=== PATIENT | female | born 1995 | race American Indian/Alaskan Native ===

== ENCOUNTER 2016-12-24 14:04 | Inpatient (IN) | payer MEDICAID ==
[2016-12-24] MEDS ORDERED: POLYCILLIN/NS 2 GM/100 ML 2 GM/100 ML BAG IV ONE (16:00)
[2016-12-24 16:02] LABS: Hematocrit 27.3 % (30.3-42.9); Hemoglobin 8.7 gm/dl (10.1-14.3); Mean Corpuscular HGB Conc 32 % (30-34); Mean Corpuscular Volume 74 fl (79-97); Platelet Count 379 K/mm3 (140-440); Red Blood Count 3.71 M/mm3 (3.65-5.03); Red Cell Distribution Width 15.4 % (13.2-15.2); White Blood Count 10.4 K/mm3 (4.5-11.0)
[2016-12-24 16:06] LABS: Mean Corpuscular Hemoglobin 23 pg (28-32)
--- NOTE | 2016-12-24 16:26 | History and Physical Report ---
History of Present Illness Date of examination: 12/24/16 Date of admission: 12/24/16 14:59 Chief complaint: leaking fluid History of present illness: Pt describes waking up and having a what appeared to be a wet spot on the bedding this am. She state she started having discharge and leaking at 10am that was clear that got cointinued and increased in flow. In triage pt was examined and nitrazine was not conclusive, however on my exam, pt has no membranes that can be palpated on exam. She is having contractions that she can feel that are q 2-3 min. I d/w IOL for ROM especially given she is GBS positive. I also d/w pt serial IOL and what can be expected. All questions were addressed and answered. EDC Calculations LMP: 12/26/2016 EDC Confirmation: 12/26/2016 Gestational Age: 10 1/7 weeks Past History : 1 Para: 0 Past Medical History: Negative Past Medical History Past Surgical History: negative Past Medical History Anesthesia Complications: negative Anemia: negative Autoimmune Disorder: negative Bleeding Disorder: negative Blood Transfusions: negative Breast Disease: negative Diabetes: negative Heart Disease: negative Hypertension: negative Hepatitis/Liver Disease: negative Kidney Disease/UTI: negative Neurologic/Epilepsy/Migraines: negative Phlebitis/Varicosities: negative Psychiatric: negative Pulmonary Disease/Asthma: negative Thyroid Disease: negative Hospitalizations: negative Surgery (Non-cardiac cath tech): negative Abnormal PAP: negative CHELSEA Exposure: negative Infertility: negative Uterine Anomaly: negative Uterine Surgery (not C/S): negative Other Gynecologic Problems: negative Social Hx: Patient is single Smoking History: Patient has never smoked. Infection History Hx of STD: chlamydia HIV Risk Eval: no Hepatitis B Risk Eval: low risk Varicella/Chicken Pox Status: Previous Disease Genetic History Congenital Heart Defect: Mom: no Dad: no Beth Disease: Mom: no Dad: no Thalassemia Mom: no Dad: no Neural Tube Defect Mom: no Dad: no Down's Syndrome Mom: no Dad: no Guido-Sachs Mom: no Dad: no Sickle Cell Disease/Trait Mom: no Dad: no Hemophilia Mom: no Dad: no Muscular Dystrophy Mom: no Dad: no Cystic Fibrosis Mom: no Dad: no [place] Chorea Mom: no Dad: no Mental Retardation Mom: no Dad: no Fragile X Mom: no Dad: no Other Genetic/Chromosomal Disorder Mom: no Dad: no Child w/other defect Mom: no Dad: no Enviromental Exposures Xray Exposure: no Medication, drug, or alcohol use since LMP: no Chemical/Other Exposure: no Exposure to Cat Liter: no Hx of Parvovirus (Fifth Disease): no Occupational Exposure to Children: none Past History Past Medical History: no pertinent history Past Surgical History: no surgical history 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: abnormal PAP smear Family/Genetic History: diabetes Social history: no significant social history, single - Obstetrical History Expected Date of Delivery: 12/26/16 Actual Gestation: 39 Week(s) 5 Day(s) : 1 Medications and Allergies Allergies Allergy/AdvReac Type Severity Reaction Status Date / Time No Known Allergies Allergy Unverified 07/17/16 03:00 Home Medications Medication Instructions Recorded Confirmed Last Taken Type Diphenhydramine HCl [Benadryl 25 mg PO Q6HR #10 tablet 07/17/16 12/24/16 05:00 Rx Allergy TAB] Tablet 1 tab PO DAILY 07/17/16 12/24/16 12/24/16 12:00 History Ondansetron [Zofran ODT TAB] 4 mg PO Q8HR #10 tab.rapdis 09/27/16 12/24/16 Unknown Rx Active Meds: Active Medications Ampicillin Sodium (Polycillin/Ns 1 Gm/50 Ml) 1 gm in 50 mls @ 100 mls/hr IV Q4H HARPREET PRN Reason: Protocol Ampicillin Sodium (Polycillin/Ns 2 Gm/100 Ml) 2 gm in 100 mls @ 100 mls/hr IV ONCE ONE Stop: 12/24/16 16:59 Last Admin: 12/24/16 16:20 Dose: 100 mls/hr Oxytocin/Sodium Chloride (Pitocin/Ns 30 Unit/500ml) 30 units in 500 mls @ 4 mls /hr IV TITR HARPREET PRN Reason: Protocol Lactated Ringer's (Lactated Ringers) 1,000 mls @ 125 mls/hr IV DIRECT AHRPREET Influenza Virus Vaccine Quadrival (Fluarix Quad 9021-1372(36 Mos+)) 60 mcg IM .ONCE ONE Stop: 12/25/16 12:01 Review of Systems All systems: negative - Vital Signs Vital signs: Vital Signs Pulse Pulse Ox 108 H 98 12/24/16 14:13 12/24/16 14:13 Temp Pulse Resp BP Pulse Ox 97.5 F L 99 H 18 114/72 99 12/24/16 15:25 12/24/16 15:36 12/24/16 15:25 12/24/16 15:25 12/24/16 15:36 - Physical Exam Lungs: Positive: Normal air movement Abdomen: Positive: normal appearance, soft. Negative: distention, tenderness, guarding Vulva: both: normal Vagina: Positive: normal moisture Extremities: Positive: normal. Negative: tenderness, edema Deep Tendon Reflex Grade: Normal +2 - Obstetrical FHR: category 1 Cervical Dilatation: 2 Cervical Effacement Percentage: 50 station: -1 Uterine Contraction Pattern: Regular Uterine Tone Measurement Phase: Resting Uterine Contraction Intensity: Mild Results Result Diagrams: 12/24/16 15:50 Abnormal lab results 12/24/16 Range/Units 15:50 Hgb 8.7 L (10.1-14.3) gm/dl Hct 27.3 L (30.3-42.9) % MCV 74 L (79-97) fl MCH 23 L (28-32) pg RDW 15.4 H (13.2-15.2) % All other labs normal. Assessment and Plan - Patient Problems (1) 39 weeks gestation of Current Visit: Yes Status: Acute (2) SRM (spontaneous rupture of membranes) Current Visit: Yes Status: Acute (3) Anemia affecting in third trimester Current Visit: Yes Status: Acute (4) Group B streptococcal carriage complicating Current Visit: Yes Status: Acute
[2016-12-24] MEDS ORDERED: BRETHINE SUB-Q PRN (16:30)
[2016-12-24] MEDS ORDERED: XYLOCAINE 2% INFILTRATI ONE ×2 (16:30→19:14)
[2016-12-24] MEDS ORDERED: SUBLIMAZE IV PRN (16:30)
[2016-12-24] MEDS ORDERED: BRETHINE IVP PRN (16:30)
[2016-12-24] MEDS ORDERED: MINERAL OIL PO PRN (16:30)
[2016-12-24] MEDS ORDERED: ePHEDrine SULFATE IV PRN ×2 (16:30→19:59)
[2016-12-24] MEDS ORDERED: LACTATED RINGERS 1,000 ML IV SCH ×2 (17:00)
[2016-12-24] MEDS ORDERED: PITOCin/NS 30 UNIT/500ML 30 UNITS/500 ML BAG IV SCH (17:00)
[2016-12-24] MEDS ORDERED: PITOCin/NS 20 UNIT/1000ML DRIP 20 UNITS/1,000 ML BAG IV SCH (17:00)
[2016-12-24] MEDS: PITOCin/NS 30 UNIT/500ML 30 UNITS/500 ML BAG IV SCH ×2 (17:06→17:37)
--- NOTE | 2016-12-24 18:04 | Progress Note ---
Assessment and Plan - Patient Problems (1) 39 weeks gestation of Current Visit: Yes Status: Acute (2) SRM (spontaneous rupture of membranes) Current Visit: Yes Status: Acute Plan to address problem: -SROM since 1230pm. +GBS. Monitor for s/sx of chorio or dysfunctional labor -con't pitocin -tachycardia appears to be associated with accelerations with contractions as there is a return to a baseline of 150s to 160s when contractions is completed. Fluid bolus going now. Will con't to monitor closely. (3) Anemia affecting in third trimester Current Visit: Yes Status: Acute (4) Group B streptococcal carriage complicating Current Visit: Yes Status: Acute Plan to address problem: -cont antibx -monitor for early s/sx of chorio Subjective - Subjective Date of service: 12/24/16 Principal diagnosis: 39.5 latent labor; GBS positive; Interval history: Pt doing well with contractions at this time and is not requesting pain medications. Baseline HR is 150-160s with accesl to the 170-180s. Pt will get fluid bolus at this time and is s/p loading dose of Ampicillin. I d/w pt and mother risk of infect due to being GBS positive and being ruptured for so long with antibx. While pt is not at the time of prolonged ROM, she still is at risk for chorio. I d/w risk of operative delivery due to intolerance, failure to progress, Chorio remote from delivery. IUPC placed without difficulty. ISE was placed but then dislodged so was removed. Clear fluid noted on exam. Patient reports: loss of fluid, movement normal, contractions, no new complaints, no vaginal bleeding Objective - Vital Signs Vital Signs: Vital Signs - 12hr 12/24/16 12/24/16 12/24/16 14:13 14:15 14:18 Temperature 97.9 F Pulse Rate 108 H 123 H 129 H Pulse Rate [ 111 H From Monitor] Respiratory 20 Rate Blood Pressure 105/63 Blood Pressure 105/63 [Right Arm] O2 Sat by Pulse 98 98 Oximetry 12/24/16 12/24/16 12/24/16 14:23 14:28 14:33 Temperature Pulse Rate 118 H 118 H 96 H Pulse Rate [ From Monitor] Respiratory Rate Blood Pressure Blood Pressure [Right Arm] O2 Sat by Pulse 98 98 98 Oximetry 12/24/16 12/24/16 12/24/16 14:38 14:43 14:48 Temperature Pulse Rate 101 H 108 H 115 H Pulse Rate [ From Monitor] Respiratory Rate Blood Pressure Blood Pressure [Right Arm] O2 Sat by Pulse 98 98 99 Oximetry 12/24/16 12/24/16 12/24/16 14:53 14:58 15:23 Temperature Pulse Rate 104 H 103 H 105 H Pulse Rate [ From Monitor] Respiratory Rate Blood Pressure 114/72 Blood Pressure [Right Arm] O2 Sat by Pulse 98 98 Oximetry 12/24/16 12/24/16 12/24/16 15:25 15:26 15:31 Temperature 97.5 F L Pulse Rate 108 H 107 H Pulse Rate [ 105 H From Monitor] Respiratory 18 Rate Blood Pressure Blood Pressure 114/72 [Right Arm] O2 Sat by Pulse 99 99 98 Oximetry 12/24/16 12/24/16 12/24/16 15:36 17:04 17:35 Temperature Pulse Rate 99 H 93 H 84 Pulse Rate [ From Monitor] Respiratory Rate Blood Pressure 117/75 113/73 Blood Pressure [Right Arm] O2 Sat by Pulse 99 Oximetry - Exam Lungs: Clear to auscultation Abdomen: Present: normal appearance, soft. Absent: distention, tenderness, guarding FHR: category 2 (due to variables and occassional tacycardia) Cervical Dilatation: 2 (clear fluid noted with IUPC placement. ISE placed but then was displaced and removed) Cervical Effacement Percentage: 50 station: -1 to -2 - Labs Labs: Abnormal Labs 12/24/16 15:50 Hgb 8.7 L Hct 27.3 L MCV 74 L MCH 23 L RDW 15.4 H Laboratory Results - last 24 hr 12/24/16 12/24/16 15:50 15:50 WBC 10.4 RBC 3.71 Hgb 8.7 L Hct 27.3 L MCV 74 L MCH 23 L MCHC 32 RDW 15.4 H Plt Count 379 Blood Type O POSITIVE
[2016-12-24] MEDS ORDERED: ePHEDrine SULFATE ONE (19:06)
[2016-12-24] MEDS: POLYCILLIN/NS 1 GM/50 ML 1 GM/50 ML BAG IV SCH ×2 (19:25→23:43)
--- NOTE | 2016-12-24 19:50 | Progress Note ---
Assessment and Plan - Patient Problems (1) 39 weeks gestation of Current Visit: Yes Status: Acute (2) SRM (spontaneous rupture of membranes) Current Visit: Yes Status: Acute Plan to address problem: -active labor at this time -epidrual in place -con't pitocin -anticipate (3) Anemia affecting in third trimester Current Visit: Yes Status: Acute (4) Group B streptococcal carriage complicating Current Visit: Yes Status: Acute Subjective - Subjective Date of service: 12/24/16 Principal diagnosis: 39.5 latent labor; GBS positive; Interval history: Epidural in place pt is very comfortable. cx : /-1 with clear fluid still noted. Patient reports: loss of fluid, movement normal, contractions, no new complaints, no vaginal bleeding Objective - Vital Signs Vital Signs: Vital Signs - 12hr 12/24/16 12/24/16 12/24/16 14:13 14:15 14:18 Temperature 97.9 F Pulse Rate 108 H 123 H 129 H Pulse Rate [ 111 H From Monitor] Respiratory 20 Rate Blood Pressure 105/63 Blood Pressure 105/63 [Right Arm] O2 Sat by Pulse 98 98 Oximetry 12/24/16 12/24/16 12/24/16 14:23 14:28 14:33 Temperature Pulse Rate 118 H 118 H 96 H Pulse Rate [ From Monitor] Respiratory Rate Blood Pressure Blood Pressure [Right Arm] O2 Sat by Pulse 98 98 98 Oximetry 12/24/16 12/24/16 12/24/16 14:38 14:43 14:48 Temperature Pulse Rate 101 H 108 H 115 H Pulse Rate [ From Monitor] Respiratory Rate Blood Pressure Blood Pressure [Right Arm] O2 Sat by Pulse 98 98 99 Oximetry 12/24/16 12/24/16 12/24/16 14:53 14:58 15:23 Temperature Pulse Rate 104 H 103 H 105 H Pulse Rate [ From Monitor] Respiratory Rate Blood Pressure 114/72 Blood Pressure [Right Arm] O2 Sat by Pulse 98 98 Oximetry 12/24/16 12/24/16 12/24/16 15:25 15:26 15:31 Temperature 97.5 F L Pulse Rate 108 H 107 H Pulse Rate [ 105 H From Monitor] Respiratory 18 Rate Blood Pressure Blood Pressure 114/72 [Right Arm] O2 Sat by Pulse 99 99 98 Oximetry 12/24/16 12/24/16 12/24/16 15:36 17:04 17:35 Temperature Pulse Rate 99 H 93 H 84 Pulse Rate [ From Monitor] Respiratory Rate Blood Pressure 117/75 113/73 Blood Pressure [Right Arm] O2 Sat by Pulse 99 Oximetry 12/24/16 12/24/16 12/24/16 17:59 18:01 18:04 Temperature 97.7 F Pulse Rate 82 86 Pulse Rate [ 84 From Monitor] Respiratory 18 Rate Blood Pressure 117/78 Blood Pressure 117/78 [Right Arm] O2 Sat by Pulse 99 99 100 Oximetry 12/24/16 12/24/16 12/24/16 18:09 18:14 18:19 Temperature Pulse Rate 81 93 H 84 Pulse Rate [ From Monitor] Respiratory Rate Blood Pressure Blood Pressure [Right Arm] O2 Sat by Pulse 100 100 100 Oximetry 12/24/16 12/24/16 12/24/16 18:24 18:29 18:34 Temperature Pulse Rate 84 88 107 H Pulse Rate [ From Monitor] Respiratory Rate Blood Pressure Blood Pressure [Right Arm] O2 Sat by Pulse 100 100 100 Oximetry 12/24/16 12/24/16 12/24/16 18:39 18:44 18:49 Temperature Pulse Rate 84 88 104 H Pulse Rate [ From Monitor] Respiratory Rate Blood Pressure Blood Pressure [Right Arm] O2 Sat by Pulse 100 100 100 Oximetry 12/24/16 12/24/16 12/24/16 18:54 18:59 19:04 Temperature Pulse Rate 98 H 95 H 100 H Pulse Rate [ From Monitor] Respiratory Rate Blood Pressure Blood Pressure [Right Arm] O2 Sat by Pulse 100 100 100 Oximetry 12/24/16 12/24/16 12/24/16 19:09 19:14 19:19 Temperature Pulse Rate 95 H 93 H 98 H Pulse Rate [ From Monitor] Respiratory Rate Blood Pressure Blood Pressure [Right Arm] O2 Sat by Pulse 100 100 100 Oximetry 12/24/16 12/24/16 12/24/16 19:24 19:29 19:34 Temperature Pulse Rate 86 118 H 95 H Pulse Rate [ From Monitor] Respiratory Rate Blood Pressure Blood Pressure [Right Arm] O2 Sat by Pulse 100 98 98 Oximetry 12/24/16 12/24/16 12/24/16 19:39 19:40 19:41 Temperature Pulse Rate 90 95 H 97 H Pulse Rate [ From Monitor] Respiratory Rate Blood Pressure 106/56 104/57 Blood Pressure [Right Arm] O2 Sat by Pulse 99 Oximetry 12/24/16 12/24/16 19:43 19:44 Temperature Pulse Rate 96 H 99 H Pulse Rate [ From Monitor] Respiratory Rate Blood Pressure 102/55 Blood Pressure [Right Arm] O2 Sat by Pulse 98 Oximetry - Exam FHR: category 1 Cervical Dilatation: 4 Cervical Effacement Percentage: 50 station: -1 Uterine Contraction Pattern: Regular Extremities: normal - Labs Labs: Abnormal Labs 12/24/16 15:50 Hgb 8.7 L Hct 27.3 L MCV 74 L MCH 23 L RDW 15.4 H Laboratory Results - last 24 hr 12/24/16 12/24/16 15:50 15:50 WBC 10.4 RBC 3.71 Hgb 8.7 L Hct 27.3 L MCV 74 L MCH 23 L MCHC 32 RDW 15.4 H Plt Count 379 Blood Type O POSITIVE Antibody Screen Negative
[2016-12-24] MEDS ORDERED: NARCAN 2 MG/2 ML IV PRN (19:59)
--- NOTE | 2016-12-24 19:59 | Anesthesia Consultation ---
Anesthesia Consult and Med Hx Date of service: 12/24/16 - Airway Anesthetic Teeth Evaluation: Good ROM Head & Neck: Adequate Mental/Hyoid Distance: Adequate Mallampati Class: Class II Intubation Access Assessment: Probably Good - Pulmonary Exam CTA: Yes - Cardiac Exam Cardiac Exam: RRR - Pre-Operative Health Status ASA Pre-Surgery Classification: ASA2 Proposed Anesthetic Plan: Epidural, Spinal - Pulmonary Hx Asthma: No COPD: No Hx Pneumonia: No - Cardiovascular System Hx Hypertension: No - Central Nervous System Hx Seizures: No Hx Psychiatric Problems: No - Endocrine Hx Renal Disease: No Hx End Stage Renal Disease: No Hx Hypothyroidism: No Hx Hyperthyroidism: No - Hematic Hx Anemia: No Hx Sickle Cell Disease: No - Other Systems Hx Alcohol Use: No Hx Obesity: Yes - Additional Comments Anesthesia Medical History Comments: +
[2016-12-24] MEDS: fentaNYL-BUPIV 2 MCG/ML-0.125% 200 MCG/100 ML BAG EPIDURAL SCH (20:21)
--- NOTE | 2016-12-24 20:34 | Event Note ---
Date: 12/24/16 Called by nursing to review tracing. Tracing reviewed. Currently Cat [place] did not appear to be working properly so was d/c and external monitor was placed. Will con't with pitocin induction /augmentation of labor at this time.
--- NOTE | 2016-12-24 22:33 | Event Note ---
Date: 12/24/16 Pt with adequate MVUs at this time and states she was just examined by nursing staff 30 min ago so I did not check pt at this time. Pt comfortable with contractions. Cx as per charted exam has not changed since my exam 2 hours ago. I d/w that she is falling off the labor curve she she should be at least 6cm. Pt desires to con't labor induction at this time instead of c/s. Tracing is Cat 1 and at this time shows no signs of distress or chorio. Pt understanding that should these events occur, then operative delivery via c/s would be necessary. Pt and mother expressed understanding and questions were addressed and answered.
[2016-12-25] MEDS: fentaNYL-BUPIV 2 MCG/ML-0.125% 200 MCG/100 ML BAG EPIDURAL SCH (03:57)
[2016-12-25] MEDS: POLYCILLIN/NS 1 GM/50 ML 1 GM/50 ML BAG IV SCH (03:58)
--- NOTE | 2016-12-25 04:03 | Progress Note ---
Assessment and Plan - Patient Problems (1) 39 weeks gestation of Current Visit: Yes Status: Acute (2) SRM (spontaneous rupture of membranes) Current Visit: Yes Status: Acute Plan to address problem: -active labor at this time -epidrual in place -con't pitocin -anticipate -although pt is off labor curve. Cs vs continued ELSA were d/w pt and she currently desires to continue ELSA. All questions were addressed and answered. (3) Anemia affecting in third trimester Current Visit: Yes Status: Acute (4) Group B streptococcal carriage complicating Current Visit: Yes Status: Acute Plan to address problem: -cont antibx -monitor for early s/sx of chorio -s/p several does of Ampicillin Subjective - Subjective Date of service: 12/25/16 Principal diagnosis: 39.5 latent labor; GBS positive; Interval history: Pt w/o c/o. I d/w that she is currently off the labor curve but has made significant change since I last examined her. Cat I tracing at this time. Pt expressed understanding stating she would like to continue LESA. Patient reports: loss of fluid, movement normal, contractions, no new complaints, no vaginal bleeding Objective - Vital Signs Vital Signs: Vital Signs - 12hr 12/24/16 12/24/16 12/24/16 17:04 17:35 17:59 Temperature Pulse Rate 93 H 84 82 Pulse Rate [ From Monitor] Respiratory Rate Blood Pressure 117/75 113/73 117/78 Blood Pressure [Right Arm] O2 Sat by Pulse 99 Oximetry 12/24/16 12/24/16 12/24/16 18:01 18:04 18:09 Temperature 97.7 F Pulse Rate 86 81 Pulse Rate [ 84 From Monitor] Respiratory 18 Rate Blood Pressure Blood Pressure 117/78 [Right Arm] O2 Sat by Pulse 99 100 100 Oximetry 12/24/16 12/24/16 12/24/16 18:14 18:19 18:24 Temperature Pulse Rate 93 H 84 84 Pulse Rate [ From Monitor] Respiratory Rate Blood Pressure Blood Pressure [Right Arm] O2 Sat by Pulse 100 100 100 Oximetry 12/24/16 12/24/16 12/24/16 18:29 18:34 18:39 Temperature Pulse Rate 88 107 H 84 Pulse Rate [ From Monitor] Respiratory Rate Blood Pressure Blood Pressure [Right Arm] O2 Sat by Pulse 100 100 100 Oximetry 12/24/16 12/24/16 12/24/16 18:44 18:49 18:54 Temperature Pulse Rate 88 104 H 98 H Pulse Rate [ From Monitor] Respiratory Rate Blood Pressure Blood Pressure [Right Arm] O2 Sat by Pulse 100 100 100 Oximetry 12/24/16 12/24/16 12/24/16 18:59 19:04 19:09 Temperature Pulse Rate 95 H 100 H 95 H Pulse Rate [ From Monitor] Respiratory Rate Blood Pressure Blood Pressure [Right Arm] O2 Sat by Pulse 100 100 100 Oximetry 12/24/16 12/24/16 12/24/16 19:14 19:19 19:24 Temperature Pulse Rate 93 H 98 H 86 Pulse Rate [ From Monitor] Respiratory Rate Blood Pressure Blood Pressure [Right Arm] O2 Sat by Pulse 100 100 100 Oximetry 12/24/16 12/24/16 12/24/16 19:29 19:34 19:39 Temperature Pulse Rate 118 H 95 H 90 Pulse Rate [ From Monitor] Respiratory Rate Blood Pressure Blood Pressure [Right Arm] O2 Sat by Pulse 98 98 99 Oximetry 12/24/16 12/24/16 12/24/16 19:40 19:41 19:43 Temperature Pulse Rate 95 H 97 H 96 H Pulse Rate [ From Monitor] Respiratory Rate Blood Pressure 106/56 104/57 102/55 Blood Pressure [Right Arm] O2 Sat by Pulse Oximetry 12/24/16 12/24/16 12/24/16 19:44 19:45 19:47 Temperature Pulse Rate 99 H 106 H 113 H Pulse Rate [ From Monitor] Respiratory Rate Blood Pressure 100/55 107/54 Blood Pressure [Right Arm] O2 Sat by Pulse 98 Oximetry 12/24/16 12/24/16 12/24/16 19:49 19:51 19:54 Temperature Pulse Rate 93 H 106 H 93 H Pulse Rate [ From Monitor] Respiratory Rate Blood Pressure 109/64 107/64 123/73 Blood Pressure [Right Arm] O2 Sat by Pulse 99 100 Oximetry 12/24/16 12/24/16 12/24/16 19:56 19:58 19:59 Temperature Pulse Rate 78 80 77 Pulse Rate [ From Monitor] Respiratory Rate Blood Pressure 120/74 121/70 Blood Pressure [Right Arm] O2 Sat by Pulse 100 Oximetry 12/24/16 12/24/16 12/24/16 20:03 20:04 20:08 Temperature Pulse Rate 77 75 100 H Pulse Rate [ From Monitor] Respiratory Rate Blood Pressure 126/77 119/78 Blood Pressure [Right Arm] O2 Sat by Pulse 100 Oximetry 12/24/16 12/24/16 12/24/16 20:09 20:13 20:14 Temperature Pulse Rate 81 82 88 Pulse Rate [ From Monitor] Respiratory Rate Blood Pressure 123/77 Blood Pressure [Right Arm] O2 Sat by Pulse 99 100 Oximetry 12/24/16 12/24/16 12/24/16 20:18 20:19 20:24 Temperature Pulse Rate 90 88 86 Pulse Rate [ From Monitor] Respiratory Rate Blood Pressure 120/75 134/78 Blood Pressure [Right Arm] O2 Sat by Pulse 100 98 Oximetry 12/24/16 12/24/16 12/24/16 20:29 20:34 20:39 Temperature Pulse Rate 87 100 H 88 Pulse Rate [ From Monitor] Respiratory Rate Blood Pressure Blood Pressure [Right Arm] O2 Sat by Pulse 99 100 99 Oximetry 12/24/16 12/24/16 12/24/16 20:44 20:49 20:54 Temperature Pulse Rate 109 H 82 103 H Pulse Rate [ From Monitor] Respiratory Rate Blood Pressure Blood Pressure [Right Arm] O2 Sat by Pulse 100 100 100 Oximetry 12/24/16 12/24/16 12/24/16 20:59 21:04 21:08 Temperature Pulse Rate 109 H 110 H 89 Pulse Rate [ From Monitor] Respiratory Rate Blood Pressure 113/70 Blood Pressure [Right Arm] O2 Sat by Pulse 82 L 99 93 Oximetry 12/24/16 12/24/16 12/24/16 21:09 21:14 21:19 Temperature Pulse Rate 83 81 91 H Pulse Rate [ From Monitor] Respiratory Rate Blood Pressure Blood Pressure [Right Arm] O2 Sat by Pulse 97 99 99 Oximetry 12/24/16 12/24/16 12/24/16 21:24 21:28 21:29 Temperature Pulse Rate 88 100 H 100 H Pulse Rate [ From Monitor] Respiratory Rate Blood Pressure 112/83 Blood Pressure [Right Arm] O2 Sat by Pulse 100 94 97 Oximetry 12/24/16 12/24/16 12/24/16 21:34 21:39 21:43 Temperature Pulse Rate 85 78 74 Pulse Rate [ From Monitor] Respiratory Rate Blood Pressure Blood Pressure [Right Arm] O2 Sat by Pulse 100 100 100 Oximetry 12/24/16 12/24/16 12/24/16 21:49 21:54 21:59 Temperature Pulse Rate 78 88 75 Pulse Rate [ From Monitor] Respiratory Rate Blood Pressure 97/56 Blood Pressure [Right Arm] O2 Sat by Pulse 100 100 100 Oximetry 12/24/16 12/24/16 12/24/16 22:04 22:09 22:14 Temperature Pulse Rate 77 78 76 Pulse Rate [ From Monitor] Respiratory Rate Blood Pressure Blood Pressure [Right Arm] O2 Sat by Pulse 100 99 100 Oximetry 12/24/16 12/24/16 12/24/16 22:19 22:24 22:29 Temperature Pulse Rate 83 76 81 Pulse Rate [ From Monitor] Respiratory Rate Blood Pressure Blood Pressure [Right Arm] O2 Sat by Pulse 99 100 100 Oximetry 12/24/16 12/24/16 12/24/16 22:30 22:34 22:39 Temperature Pulse Rate 75 78 75 Pulse Rate [ From Monitor] Respiratory Rate Blood Pressure 94/50 Blood Pressure [Right Arm] O2 Sat by Pulse 100 100 Oximetry 12/24/16 12/24/16 12/24/16 22:44 22:49 22:54 Temperature Pulse Rate 75 76 81 Pulse Rate [ From Monitor] Respiratory Rate Blood Pressure Blood Pressure [Right Arm] O2 Sat by Pulse 100 99 99 Oximetry 12/24/16 12/24/16 12/24/16 22:59 23:04 23:09 Temperature Pulse Rate 75 79 77 Pulse Rate [ From Monitor] Respiratory Rate Blood Pressure 99/56 Blood Pressure [Right Arm] O2 Sat by Pulse 100 100 100 Oximetry 12/24/16 12/24/16 12/24/16 23:14 23:19 23:24 Temperature Pulse Rate 74 82 76 Pulse Rate [ From Monitor] Respiratory Rate Blood Pressure Blood Pressure [Right Arm] O2 Sat by Pulse 100 99 99 Oximetry 12/24/16 12/24/16 12/24/16 23:29 23:34 23:39 Temperature Pulse Rate 78 81 83 Pulse Rate [ From Monitor] Respiratory Rate Blood Pressure 101/49 Blood Pressure [Right Arm] O2 Sat by Pulse 99 100 100 Oximetry 12/24/16 12/24/16 12/24/16 23:44 23:49 23:54 Temperature Pulse Rate 74 79 96 H Pulse Rate [ From Monitor] Respiratory Rate Blood Pressure Blood Pressure [Right Arm] O2 Sat by Pulse 100 100 100 Oximetry 12/24/16 12/25/16 12/25/16 23:59 00:04 00:09 Temperature Pulse Rate 83 74 78 Pulse Rate [ From Monitor] Respiratory Rate Blood Pressure 111/53 Blood Pressure [Right Arm] O2 Sat by Pulse 100 100 100 Oximetry 12/25/16 12/25/16 12/25/16 00:14 00:19 00:24 Temperature Pulse Rate 77 78 79 Pulse Rate [ From Monitor] Respiratory Rate Blood Pressure Blood Pressure [Right Arm] O2 Sat by Pulse 100 100 100 Oximetry 12/25/16 12/25/16 12/25/16 00:29 00:34 00:39 Temperature Pulse Rate 76 82 101 H Pulse Rate [ From Monitor] Respiratory Rate Blood Pressure 108/65 Blood Pressure [Right Arm] O2 Sat by Pulse 100 100 99 Oximetry 12/25/16 12/25/16 12/25/16 00:44 00:49 00:53 Temperature Pulse Rate 83 75 Pulse Rate [ From Monitor] Respiratory Rate Blood Pressure Blood Pressure [Right Arm] O2 Sat by Pulse 99 100 85 Oximetry 12/25/16 12/25/16 12/25/16 00:54 00:59 01:04 Temperature Pulse Rate 76 108 H 80 Pulse Rate [ From Monitor] Respiratory Rate Blood Pressure 119/71 Blood Pressure [Right Arm] O2 Sat by Pulse 71 L 99 100 Oximetry 12/25/16 12/25/16 12/25/16 01:09 01:14 01:19 Temperature Pulse Rate 78 79 73 Pulse Rate [ From Monitor] Respiratory Rate Blood Pressure Blood Pressure [Right Arm] O2 Sat by Pulse 100 100 100 Oximetry 12/25/16 12/25/16 12/25/16 01:24 01:29 01:59 Temperature Pulse Rate 77 75 106 H Pulse Rate [ From Monitor] Respiratory Rate Blood Pressure 107/64 112/61 Blood Pressure [Right Arm] O2 Sat by Pulse 100 Oximetry 12/25/16 12/25/16 12/25/16 02:03 02:08 02:13 Temperature Pulse Rate 98 H 121 H 82 Pulse Rate [ From Monitor] Respiratory Rate Blood Pressure Blood Pressure [Right Arm] O2 Sat by Pulse 100 100 100 Oximetry 12/25/16 12/25/16 12/25/16 02:18 02:23 02:28 Temperature Pulse Rate 84 85 83 Pulse Rate [ From Monitor] Respiratory Rate Blood Pressure Blood Pressure [Right Arm] O2 Sat by Pulse 100 100 100 Oximetry 12/25/16 12/25/16 12/25/16 02:30 02:33 02:38 Temperature Pulse Rate 83 81 81 Pulse Rate [ From Monitor] Respiratory Rate Blood Pressure 110/63 Blood Pressure [Right Arm] O2 Sat by Pulse 100 100 Oximetry 12/25/16 12/25/16 12/25/16 02:43 02:48 02:53 Temperature Pulse Rate 79 78 80 Pulse Rate [ From Monitor] Respiratory Rate Blood Pressure Blood Pressure [Right Arm] O2 Sat by Pulse 100 100 100 Oximetry 12/25/16 12/25/16 12/25/16 02:58 03:00 03:03 Temperature Pulse Rate 79 87 84 Pulse Rate [ From Monitor] Respiratory Rate Blood Pressure 113/72 Blood Pressure [Right Arm] O2 Sat by Pulse 100 100 Oximetry 12/25/16 12/25/16 12/25/16 03:08 03:13 03:18 Temperature Pulse Rate 86 109 H 86 Pulse Rate [ From Monitor] Respiratory Rate Blood Pressure Blood Pressure [Right Arm] O2 Sat by Pulse 100 100 100 Oximetry 12/25/16 12/25/16 12/25/16 03:23 03:28 03:29 Temperature Pulse Rate 83 76 90 Pulse Rate [ From Monitor] Respiratory Rate Blood Pressure 115/55 Blood Pressure [Right Arm] O2 Sat by Pulse 100 100 Oximetry 12/25/16 12/25/16 12/25/16 03:33 03:38 03:43 Temperature Pulse Rate 82 82 81 Pulse Rate [ From Monitor] Respiratory Rate Blood Pressure Blood Pressure [Right Arm] O2 Sat by Pulse 100 99 99 Oximetry 12/25/16 12/25/16 03:48 03:53 Temperature Pulse Rate 105 H 83 Pulse Rate [ From Monitor] Respiratory Rate Blood Pressure Blood Pressure [Right Arm] O2 Sat by Pulse 100 100 Oximetry - Exam FHR: category 1 Cervical Dilatation: 6.0 Cervical Effacement Percentage: 90 station: 0 Uterine Contraction Pattern: Regular Uterine Tone Measurement Phase: Resting Uterine Contraction Intensity: Moderate Extremities: normal - Labs Labs: Abnormal Labs 12/24/16 15:50 Hgb 8.7 L Hct 27.3 L MCV 74 L MCH 23 L RDW 15.4 H Laboratory Results - last 24 hr 12/24/16 12/24/16 15:50 15:50 WBC 10.4 RBC 3.71 Hgb 8.7 L Hct 27.3 L MCV 74 L MCH 23 L MCHC 32 RDW 15.4 H Plt Count 379 Blood Type O POSITIVE Antibody Screen Negative
--- NOTE | 2016-12-25 05:41 | Progress Note ---
Assessment and Plan 21yo @ 39 w in active labor now with Pit @ 18mu Comfortable with epidural. GBS+ : 3 doses Ampicillin infused thus far. SVE no chg since 399. FHT Cat 1 Will continue to monitor Subjective - Subjective Date of service: 12/25/16 (pt resting quietly; no c/o pain) Principal diagnosis: 39.5 latent labor; GBS positive; Patient reports: loss of fluid, movement normal, contractions, no new complaints, no vaginal bleeding Objective - Vital Signs Vital Signs: Vital Signs - 12hr 12/24/16 12/24/16 12/24/16 17:59 18:01 18:04 Temperature 97.7 F Pulse Rate 82 86 Pulse Rate [ 84 From Monitor] Respiratory 18 Rate Blood Pressure 117/78 Blood Pressure 117/78 [Right Arm] O2 Sat by Pulse 99 99 100 Oximetry 12/24/16 12/24/16 12/24/16 18:09 18:14 18:19 Temperature Pulse Rate 81 93 H 84 Pulse Rate [ From Monitor] Respiratory Rate Blood Pressure Blood Pressure [Right Arm] O2 Sat by Pulse 100 100 100 Oximetry 12/24/16 12/24/16 12/24/16 18:24 18:29 18:34 Temperature Pulse Rate 84 88 107 H Pulse Rate [ From Monitor] Respiratory Rate Blood Pressure Blood Pressure [Right Arm] O2 Sat by Pulse 100 100 100 Oximetry 12/24/16 12/24/16 12/24/16 18:39 18:44 18:49 Temperature Pulse Rate 84 88 104 H Pulse Rate [ From Monitor] Respiratory Rate Blood Pressure Blood Pressure [Right Arm] O2 Sat by Pulse 100 100 100 Oximetry 12/24/16 12/24/16 12/24/16 18:54 18:59 19:04 Temperature Pulse Rate 98 H 95 H 100 H Pulse Rate [ From Monitor] Respiratory Rate Blood Pressure Blood Pressure [Right Arm] O2 Sat by Pulse 100 100 100 Oximetry 12/24/16 12/24/16 12/24/16 19:09 19:14 19:19 Temperature Pulse Rate 95 H 93 H 98 H Pulse Rate [ From Monitor] Respiratory Rate Blood Pressure Blood Pressure [Right Arm] O2 Sat by Pulse 100 100 100 Oximetry 12/24/16 12/24/16 12/24/16 19:24 19:29 19:34 Temperature Pulse Rate 86 118 H 95 H Pulse Rate [ From Monitor] Respiratory Rate Blood Pressure Blood Pressure [Right Arm] O2 Sat by Pulse 100 98 98 Oximetry 12/24/16 12/24/16 12/24/16 19:39 19:40 19:41 Temperature Pulse Rate 90 95 H 97 H Pulse Rate [ From Monitor] Respiratory Rate Blood Pressure 106/56 104/57 Blood Pressure [Right Arm] O2 Sat by Pulse 99 Oximetry 12/24/16 12/24/16 12/24/16 19:43 19:44 19:45 Temperature Pulse Rate 96 H 99 H 106 H Pulse Rate [ From Monitor] Respiratory Rate Blood Pressure 102/55 100/55 Blood Pressure [Right Arm] O2 Sat by Pulse 98 Oximetry 12/24/16 12/24/16 12/24/16 19:47 19:49 19:51 Temperature Pulse Rate 113 H 93 H 106 H Pulse Rate [ From Monitor] Respiratory Rate Blood Pressure 107/54 109/64 107/64 Blood Pressure [Right Arm] O2 Sat by Pulse 99 Oximetry 12/24/16 12/24/16 12/24/16 19:54 19:56 19:58 Temperature Pulse Rate 93 H 78 80 Pulse Rate [ From Monitor] Respiratory Rate Blood Pressure 123/73 120/74 121/70 Blood Pressure [Right Arm] O2 Sat by Pulse 100 Oximetry 12/24/16 12/24/16 12/24/16 19:59 20:03 20:04 Temperature Pulse Rate 77 77 75 Pulse Rate [ From Monitor] Respiratory Rate Blood Pressure 126/77 Blood Pressure [Right Arm] O2 Sat by Pulse 100 100 Oximetry 12/24/16 12/24/16 12/24/16 20:08 20:09 20:13 Temperature Pulse Rate 100 H 81 82 Pulse Rate [ From Monitor] Respiratory Rate Blood Pressure 119/78 123/77 Blood Pressure [Right Arm] O2 Sat by Pulse 99 Oximetry 12/24/16 12/24/16 12/24/16 20:14 20:18 20:19 Temperature Pulse Rate 88 90 88 Pulse Rate [ From Monitor] Respiratory Rate Blood Pressure 120/75 Blood Pressure [Right Arm] O2 Sat by Pulse 100 100 Oximetry 12/24/16 12/24/16 12/24/16 20:24 20:29 20:34 Temperature Pulse Rate 86 87 100 H Pulse Rate [ From Monitor] Respiratory Rate Blood Pressure 134/78 Blood Pressure [Right Arm] O2 Sat by Pulse 98 99 100 Oximetry 12/24/16 12/24/16 12/24/16 20:39 20:44 20:49 Temperature Pulse Rate 88 109 H 82 Pulse Rate [ From Monitor] Respiratory Rate Blood Pressure Blood Pressure [Right Arm] O2 Sat by Pulse 99 100 100 Oximetry 12/24/16 12/24/16 12/24/16 20:54 20:59 21:04 Temperature Pulse Rate 103 H 109 H 110 H Pulse Rate [ From Monitor] Respiratory Rate Blood Pressure 113/70 Blood Pressure [Right Arm] O2 Sat by Pulse 100 82 L 99 Oximetry 12/24/16 12/24/16 12/24/16 21:08 21:09 21:14 Temperature Pulse Rate 89 83 81 Pulse Rate [ From Monitor] Respiratory Rate Blood Pressure Blood Pressure [Right Arm] O2 Sat by Pulse 93 97 99 Oximetry 12/24/16 12/24/16 12/24/16 21:19 21:24 21:28 Temperature Pulse Rate 91 H 88 100 H Pulse Rate [ From Monitor] Respiratory Rate Blood Pressure Blood Pressure [Right Arm] O2 Sat by Pulse 99 100 94 Oximetry 12/24/16 12/24/16 12/24/16 21:29 21:34 21:39 Temperature Pulse Rate 100 H 85 78 Pulse Rate [ From Monitor] Respiratory Rate Blood Pressure 112/83 Blood Pressure [Right Arm] O2 Sat by Pulse 97 100 100 Oximetry 12/24/16 12/24/16 12/24/16 21:43 21:49 21:54 Temperature Pulse Rate 74 78 88 Pulse Rate [ From Monitor] Respiratory Rate Blood Pressure Blood Pressure [Right Arm] O2 Sat by Pulse 100 100 100 Oximetry 12/24/16 12/24/16 12/24/16 21:59 22:04 22:09 Temperature Pulse Rate 75 77 78 Pulse Rate [ From Monitor] Respiratory Rate Blood Pressure 97/56 Blood Pressure [Right Arm] O2 Sat by Pulse 100 100 99 Oximetry 12/24/16 12/24/16 12/24/16 22:14 22:19 22:24 Temperature Pulse Rate 76 83 76 Pulse Rate [ From Monitor] Respiratory Rate Blood Pressure Blood Pressure [Right Arm] O2 Sat by Pulse 100 99 100 Oximetry 12/24/16 12/24/16 12/24/16 22:29 22:30 22:34 Temperature Pulse Rate 81 75 78 Pulse Rate [ From Monitor] Respiratory Rate Blood Pressure 94/50 Blood Pressure [Right Arm] O2 Sat by Pulse 100 100 Oximetry 12/24/16 12/24/16 12/24/16 22:39 22:44 22:49 Temperature Pulse Rate 75 75 76 Pulse Rate [ From Monitor] Respiratory Rate Blood Pressure Blood Pressure [Right Arm] O2 Sat by Pulse 100 100 99 Oximetry 12/24/16 12/24/16 12/24/16 22:54 22:59 23:04 Temperature Pulse Rate 81 75 79 Pulse Rate [ From Monitor] Respiratory Rate Blood Pressure 99/56 Blood Pressure [Right Arm] O2 Sat by Pulse 99 100 100 Oximetry 12/24/16 12/24/16 12/24/16 23:09 23:14 23:19 Temperature Pulse Rate 77 74 82 Pulse Rate [ From Monitor] Respiratory Rate Blood Pressure Blood Pressure [Right Arm] O2 Sat by Pulse 100 100 99 Oximetry 12/24/16 12/24/16 12/24/16 23:24 23:29 23:34 Temperature Pulse Rate 76 78 81 Pulse Rate [ From Monitor] Respiratory Rate Blood Pressure 101/49 Blood Pressure [Right Arm] O2 Sat by Pulse 99 99 100 Oximetry 12/24/16 12/24/16 12/24/16 23:39 23:44 23:49 Temperature Pulse Rate 83 74 79 Pulse Rate [ From Monitor] Respiratory Rate Blood Pressure Blood Pressure [Right Arm] O2 Sat by Pulse 100 100 100 Oximetry 12/24/16 12/24/16 12/25/16 23:54 23:59 00:04 Temperature Pulse Rate 96 H 83 74 Pulse Rate [ From Monitor] Respiratory Rate Blood Pressure 111/53 Blood Pressure [Right Arm] O2 Sat by Pulse 100 100 100 Oximetry 12/25/16 12/25/16 12/25/16 00:09 00:14 00:19 Temperature Pulse Rate 78 77 78 Pulse Rate [ From Monitor] Respiratory Rate Blood Pressure Blood Pressure [Right Arm] O2 Sat by Pulse 100 100 100 Oximetry 12/25/16 12/25/16 12/25/16 00:24 00:29 00:34 Temperature Pulse Rate 79 76 82 Pulse Rate [ From Monitor] Respiratory Rate Blood Pressure 108/65 Blood Pressure [Right Arm] O2 Sat by Pulse 100 100 100 Oximetry 12/25/16 12/25/16 12/25/16 00:39 00:44 00:49 Temperature Pulse Rate 101 H 83 75 Pulse Rate [ From Monitor] Respiratory Rate Blood Pressure Blood Pressure [Right Arm] O2 Sat by Pulse 99 99 100 Oximetry 12/25/16 12/25/16 12/25/16 00:53 00:54 00:59 Temperature Pulse Rate 76 108 H Pulse Rate [ From Monitor] Respiratory Rate Blood Pressure 119/71 Blood Pressure [Right Arm] O2 Sat by Pulse 85 71 L 99 Oximetry 12/25/16 12/25/16 12/25/16 01:04 01:09 01:14 Temperature Pulse Rate 80 78 79 Pulse Rate [ From Monitor] Respiratory Rate Blood Pressure Blood Pressure [Right Arm] O2 Sat by Pulse 100 100 100 Oximetry 12/25/16 12/25/16 12/25/16 01:19 01:24 01:29 Temperature Pulse Rate 73 77 75 Pulse Rate [ From Monitor] Respiratory Rate Blood Pressure 107/64 Blood Pressure [Right Arm] O2 Sat by Pulse 100 100 Oximetry 12/25/16 12/25/16 12/25/16 01:59 02:03 02:08 Temperature Pulse Rate 106 H 98 H 121 H Pulse Rate [ From Monitor] Respiratory Rate Blood Pressure 112/61 Blood Pressure [Right Arm] O2 Sat by Pulse 100 100 Oximetry 12/25/16 12/25/16 12/25/16 02:13 02:18 02:23 Temperature Pulse Rate 82 84 85 Pulse Rate [ From Monitor] Respiratory Rate Blood Pressure Blood Pressure [Right Arm] O2 Sat by Pulse 100 100 100 Oximetry 12/25/16 12/25/16 12/25/16 02:28 02:30 02:33 Temperature Pulse Rate 83 83 81 Pulse Rate [ From Monitor] Respiratory Rate Blood Pressure 110/63 Blood Pressure [Right Arm] O2 Sat by Pulse 100 100 Oximetry 12/25/16 12/25/16 12/25/16 02:38 02:43 02:48 Temperature Pulse Rate 81 79 78 Pulse Rate [ From Monitor] Respiratory Rate Blood Pressure Blood Pressure [Right Arm] O2 Sat by Pulse 100 100 100 Oximetry 12/25/16 12/25/16 12/25/16 02:53 02:58 03:00 Temperature Pulse Rate 80 79 87 Pulse Rate [ From Monitor] Respiratory Rate Blood Pressure 113/72 Blood Pressure [Right Arm] O2 Sat by Pulse 100 100 Oximetry 12/25/16 12/25/16 12/25/16 03:03 03:08 03:13 Temperature Pulse Rate 84 86 109 H Pulse Rate [ From Monitor] Respiratory Rate Blood Pressure Blood Pressure [Right Arm] O2 Sat by Pulse 100 100 100 Oximetry 12/25/16 12/25/16 12/25/16 03:18 03:23 03:28 Temperature Pulse Rate 86 83 76 Pulse Rate [ From Monitor] Respiratory Rate Blood Pressure Blood Pressure [Right Arm] O2 Sat by Pulse 100 100 100 Oximetry 12/25/16 12/25/16 12/25/16 03:29 03:33 03:38 Temperature Pulse Rate 90 82 82 Pulse Rate [ From Monitor] Respiratory Rate Blood Pressure 115/55 Blood Pressure [Right Arm] O2 Sat by Pulse 100 99 Oximetry 12/25/16 12/25/16 12/25/16 03:43 03:48 03:53 Temperature Pulse Rate 81 105 H 83 Pulse Rate [ From Monitor] Respiratory Rate Blood Pressure Blood Pressure [Right Arm] O2 Sat by Pulse 99 100 100 Oximetry 12/25/16 12/25/16 12/25/16 04:00 04:30 05:00 Temperature Pulse Rate 82 83 82 Pulse Rate [ From Monitor] Respiratory Rate Blood Pressure 116/61 115/76 110/53 Blood Pressure [Right Arm] O2 Sat by Pulse Oximetry 12/25/16 12/25/16 05:30 05:34 Temperature Pulse Rate 79 95 H Pulse Rate [ From Monitor] Respiratory Rate Blood Pressure 105/55 Blood Pressure [Right Arm] O2 Sat by Pulse 99 Oximetry - Exam Breasts: deferred Cardiovascular: Regular rate Lungs: Normal air movement Abdomen: Present: normal appearance, soft. Absent: distention, tenderness Uterus: Present: normal FHR: auscultation normal, category 1 Uterine Contraction Monitor Mode: External Cervical Dilatation: 6 Cervical Effacement Percentage: 90 station: 0 Uterine Contraction Pattern: Regular Uterine Contraction Intensity: Moderate Extremities: normal Deep Tendon Reflex Grade: Normal +2 - Labs Labs: Abnormal Labs 12/24/16 15:50 Hgb 8.7 L Hct 27.3 L MCV 74 L MCH 23 L RDW 15.4 H Laboratory Results - last 24 hr 12/24/16 12/24/16 15:50 15:50 WBC 10.4 RBC 3.71 Hgb 8.7 L Hct 27.3 L MCV 74 L MCH 23 L MCHC 32 RDW 15.4 H Plt Count 379 Blood Type O POSITIVE Antibody Screen Negative
--- NOTE | 2016-12-25 06:55 | Progress Note ---
Assessment and Plan - Patient Problems (1) 39 weeks gestation of Current Visit: Yes Status: Acute (2) SRM (spontaneous rupture of membranes) Current Visit: Yes Status: Acute Plan to address problem: -active labor at this time -epidrual in place -con't pitocin -anticipate -although pt is off labor curve. Cs vs continued ELSA were d/w pt and she currently desires to continue ELSA. All questions were addressed and answered. (3) Anemia affecting in third trimester Current Visit: Yes Status: Acute (4) Group B streptococcal carriage complicating Current Visit: Yes Status: Acute Plan to address problem: -cont antibx -monitor for early s/sx of chorio -s/p several does of Ampicillin Subjective - Subjective Date of service: 12/25/16 Principal diagnosis: 39.6 latent labor; GBS positive; Interval history: Pt now at 7-8cm/100/0 at this time. Pt advised that while labor pattern is dysfunctional, she is making some cervical change. I d/w and family again operative delivery via section and pt again declines due to making some cervical change. Still no s/sx of chorio. Pt has gotten several doses of ampicillin. Patient reports: loss of fluid, movement normal, contractions, no new complaints, no vaginal bleeding Objective - Vital Signs Vital Signs: Vital Signs - 12hr 12/24/16 12/24/16 12/24/16 18:39 18:44 18:49 Pulse Rate 84 88 104 H Blood Pressure O2 Sat by Pulse 100 100 100 Oximetry 12/24/16 12/24/16 12/24/16 18:54 18:59 19:04 Pulse Rate 98 H 95 H 100 H Blood Pressure O2 Sat by Pulse 100 100 100 Oximetry 12/24/16 12/24/16 12/24/16 19:09 19:14 19:19 Pulse Rate 95 H 93 H 98 H Blood Pressure O2 Sat by Pulse 100 100 100 Oximetry 12/24/16 12/24/16 12/24/16 19:24 19:29 19:34 Pulse Rate 86 118 H 95 H Blood Pressure O2 Sat by Pulse 100 98 98 Oximetry 12/24/16 12/24/16 12/24/16 19:39 19:40 19:41 Pulse Rate 90 95 H 97 H Blood Pressure 106/56 104/57 O2 Sat by Pulse 99 Oximetry 12/24/16 12/24/16 12/24/16 19:43 19:44 19:45 Pulse Rate 96 H 99 H 106 H Blood Pressure 102/55 100/55 O2 Sat by Pulse 98 Oximetry 12/24/16 12/24/16 12/24/16 19:47 19:49 19:51 Pulse Rate 113 H 93 H 106 H Blood Pressure 107/54 109/64 107/64 O2 Sat by Pulse 99 Oximetry 12/24/16 12/24/16 12/24/16 19:54 19:56 19:58 Pulse Rate 93 H 78 80 Blood Pressure 123/73 120/74 121/70 O2 Sat by Pulse 100 Oximetry 12/24/16 12/24/16 12/24/16 19:59 20:03 20:04 Pulse Rate 77 77 75 Blood Pressure 126/77 O2 Sat by Pulse 100 100 Oximetry 12/24/16 12/24/16 12/24/16 20:08 20:09 20:13 Pulse Rate 100 H 81 82 Blood Pressure 119/78 123/77 O2 Sat by Pulse 99 Oximetry 12/24/16 12/24/16 12/24/16 20:14 20:18 20:19 Pulse Rate 88 90 88 Blood Pressure 120/75 O2 Sat by Pulse 100 100 Oximetry 12/24/16 12/24/16 12/24/16 20:24 20:29 20:34 Pulse Rate 86 87 100 H Blood Pressure 134/78 O2 Sat by Pulse 98 99 100 Oximetry 12/24/16 12/24/16 12/24/16 20:39 20:44 20:49 Pulse Rate 88 109 H 82 Blood Pressure O2 Sat by Pulse 99 100 100 Oximetry 12/24/16 12/24/16 12/24/16 20:54 20:59 21:04 Pulse Rate 103 H 109 H 110 H Blood Pressure 113/70 O2 Sat by Pulse 100 82 L 99 Oximetry 12/24/16 12/24/16 12/24/16 21:08 21:09 21:14 Pulse Rate 89 83 81 Blood Pressure O2 Sat by Pulse 93 97 99 Oximetry 12/24/16 12/24/16 12/24/16 21:19 21:24 21:28 Pulse Rate 91 H 88 100 H Blood Pressure O2 Sat by Pulse 99 100 94 Oximetry 12/24/16 12/24/1617 21:29 21:34 21:39 Pulse Rate 100 H 85 78 Blood Pressure 112/83 O2 Sat by Pulse 97 100 100 Oximetry 12/24/16 12/24/16 12/24/16 21:43 21:49 21:54 Pulse Rate 74 78 88 Blood Pressure O2 Sat by Pulse 100 100 100 Oximetry 12/24/16 12/24/16 12/24/16 21:59 22:04 22:09 Pulse Rate 75 77 78 Blood Pressure 97/56 O2 Sat by Pulse 100 100 99 Oximetry 12/24/16 12/24/16 12/24/16 22:14 22:19 22:24 Pulse Rate 76 83 76 Blood Pressure O2 Sat by Pulse 100 99 100 Oximetry 12/24/16 12/24/16 12/24/16 22:29 22:30 22:34 Pulse Rate 81 75 78 Blood Pressure 94/50 O2 Sat by Pulse 100 100 Oximetry 12/24/16 12/24/16 12/24/16 22:39 22:44 22:49 Pulse Rate 75 75 76 Blood Pressure O2 Sat by Pulse 100 100 99 Oximetry 12/24/16 12/24/16 12/24/16 22:54 22:59 23:04 Pulse Rate 81 75 79 Blood Pressure 99/56 O2 Sat by Pulse 99 100 100 Oximetry 12/24/16 12/24/16 12/24/16 23:09 23:14 23:19 Pulse Rate 77 74 82 Blood Pressure O2 Sat by Pulse 100 100 99 Oximetry 12/24/16 12/24/16 12/24/16 23:24 23:29 23:34 Pulse Rate 76 78 81 Blood Pressure 101/49 O2 Sat by Pulse 99 99 100 Oximetry 12/24/16 12/24/16 12/24/16 23:39 23:44 23:49 Pulse Rate 83 74 79 Blood Pressure O2 Sat by Pulse 100 100 100 Oximetry 12/24/16 12/24/16 12/25/16 23:54 23:59 00:04 Pulse Rate 96 H 83 74 Blood Pressure 111/53 O2 Sat by Pulse 100 100 100 Oximetry 12/25/16 12/25/16 12/25/16 00:09 00:14 00:19 Pulse Rate 78 77 78 Blood Pressure O2 Sat by Pulse 100 100 100 Oximetry 12/25/16 12/25/16 12/25/16 00:24 00:29 00:34 Pulse Rate 79 76 82 Blood Pressure 108/65 O2 Sat by Pulse 100 100 100 Oximetry 12/25/16 12/25/16 12/25/16 00:39 00:44 00:49 Pulse Rate 101 H 83 75 Blood Pressure O2 Sat by Pulse 99 99 100 Oximetry 12/25/16 12/25/16 12/25/16 00:53 00:54 00:59 Pulse Rate 76 108 H Blood Pressure 119/71 O2 Sat by Pulse 85 71 L 99 Oximetry 12/25/16 12/25/16 12/25/16 01:04 01:09 01:14 Pulse Rate 80 78 79 Blood Pressure O2 Sat by Pulse 100 100 100 Oximetry 12/25/16 12/25/16 12/25/16 01:19 01:24 01:29 Pulse Rate 73 77 75 Blood Pressure 107/64 O2 Sat by Pulse 100 100 Oximetry 12/25/16 12/25/16 12/25/16 01:59 02:03 02:08 Pulse Rate 106 H 98 H 121 H Blood Pressure 112/61 O2 Sat by Pulse 100 100 Oximetry 12/25/16 12/25/16 12/25/16 02:13 02:18 02:23 Pulse Rate 82 84 85 Blood Pressure O2 Sat by Pulse 100 100 100 Oximetry 12/25/16 12/25/16 12/25/16 02:28 02:30 02:33 Pulse Rate 83 83 81 Blood Pressure 110/63 O2 Sat by Pulse 100 100 Oximetry 12/25/16 12/25/16 12/25/16 02:38 02:43 02:48 Pulse Rate 81 79 78 Blood Pressure O2 Sat by Pulse 100 100 100 Oximetry 12/25/16 12/25/16 12/25/16 02:53 02:58 03:00 Pulse Rate 80 79 87 Blood Pressure 113/72 O2 Sat by Pulse 100 100 Oximetry 12/25/16 12/25/16 12/25/16 03:03 03:08 03:13 Pulse Rate 84 86 109 H Blood Pressure O2 Sat by Pulse 100 100 100 Oximetry 12/25/16 12/25/16 12/25/16 03:18 03:23 03:28 Pulse Rate 86 83 76 Blood Pressure O2 Sat by Pulse 100 100 100 Oximetry 12/25/16 12/25/16 12/25/16 03:29 03:33 03:38 Pulse Rate 90 82 82 Blood Pressure 115/55 O2 Sat by Pulse 100 99 Oximetry 12/25/16 12/25/16 12/25/16 03:43 03:48 03:53 Pulse Rate 81 105 H 83 Blood Pressure O2 Sat by Pulse 99 100 100 Oximetry 12/25/16 12/25/16 12/25/16 04:00 04:30 05:00 Pulse Rate 82 83 82 Blood Pressure 116/61 115/76 110/53 O2 Sat by Pulse Oximetry 12/25/16 12/25/16 12/25/16 05:30 05:34 05:39 Pulse Rate 79 95 H 73 Blood Pressure 105/55 O2 Sat by Pulse 99 100 Oximetry 12/25/16 12/25/16 12/25/16 05:44 05:49 05:54 Pulse Rate 85 82 93 H Blood Pressure O2 Sat by Pulse 99 99 99 Oximetry 12/25/16 12/25/16 12/25/16 05:59 06:04 06:09 Pulse Rate 82 107 H 101 H Blood Pressure 104/53 O2 Sat by Pulse 99 99 100 Oximetry 12/25/16 12/25/16 12/25/16 06:14 06:19 06:24 Pulse Rate 106 H 94 H 101 H Blood Pressure O2 Sat by Pulse 100 100 100 Oximetry 12/25/16 12/25/16 06:29 06:34 Pulse Rate 110 H 82 Blood Pressure 117/67 O2 Sat by Pulse 100 100 Oximetry - Exam FHR: category 2 (due to response to medications and early decels) - Labs Labs: Abnormal Labs 12/24/16 15:50 Hgb 8.7 L Hct 27.3 L MCV 74 L MCH 23 L RDW 15.4 H Laboratory Results - last 24 hr 12/24/16 12/24/16 15:50 15:50 WBC 10.4 RBC 3.71 Hgb 8.7 L Hct 27.3 L MCV 74 L MCH 23 L MCHC 32 RDW 15.4 H Plt Count 379 Blood Type O POSITIVE Antibody Screen Negative
[2016-12-25] MEDS ORDERED: BICITRA ONE (07:17)
[2016-12-25] MEDS ORDERED: PEPCID IV ONE (07:18)
--- NOTE | 2016-12-25 07:20 | Progress Note ---
Assessment and Plan despite adequate labor pt has had slow progress with no descent of head in several hours. Caput developing. Discussed intervention and the risks of continuing to try for vaginal delivery, ie shoulder dystocia. Pt agrees to section. here. Pt prepped for surgery Orders in EMR Subjective - Subjective Date of service: 12/25/16 ( head remains high caput developing) Principal diagnosis: 39.6 latent labor; GBS positive; Patient reports: loss of fluid, movement normal, contractions, no new complaints, no vaginal bleeding Objective - Vital Signs Vital Signs: Vital Signs - 12hr 12/24/16 12/24/16 12/24/16 19:19 19:24 19:29 Pulse Rate 98 H 86 118 H Blood Pressure O2 Sat by Pulse 100 100 98 Oximetry 12/24/16 12/24/16 12/24/16 19:34 19:39 19:40 Pulse Rate 95 H 90 95 H Blood Pressure 106/56 O2 Sat by Pulse 98 99 Oximetry 12/24/16 12/24/16 12/24/16 19:41 19:43 19:44 Pulse Rate 97 H 96 H 99 H Blood Pressure 104/57 102/55 O2 Sat by Pulse 98 Oximetry 12/24/16 12/24/16 12/24/16 19:45 19:47 19:49 Pulse Rate 106 H 113 H 93 H Blood Pressure 100/55 107/54 109/64 O2 Sat by Pulse 99 Oximetry 12/24/16 12/24/16 12/24/16 19:51 19:54 19:56 Pulse Rate 106 H 93 H 78 Blood Pressure 107/64 123/73 120/74 O2 Sat by Pulse 100 Oximetry 12/24/16 12/24/16 12/24/16 19:58 19:59 20:03 Pulse Rate 80 77 77 Blood Pressure 121/70 126/77 O2 Sat by Pulse 100 Oximetry 12/24/16 12/24/16 12/24/16 20:04 20:08 20:09 Pulse Rate 75 100 H 81 Blood Pressure 119/78 O2 Sat by Pulse 100 99 Oximetry 12/24/16 12/24/16 12/24/16 20:13 20:14 20:18 Pulse Rate 82 88 90 Blood Pressure 123/77 120/75 O2 Sat by Pulse 100 Oximetry 12/24/16 12/24/16 12/24/16 20:19 20:24 20:29 Pulse Rate 88 86 87 Blood Pressure 134/78 O2 Sat by Pulse 100 98 99 Oximetry 12/24/16 12/24/16 12/24/16 20:34 20:39 20:44 Pulse Rate 100 H 88 109 H Blood Pressure O2 Sat by Pulse 100 99 100 Oximetry 12/24/16 12/24/16 12/24/16 20:49 20:54 20:59 Pulse Rate 82 103 H 109 H Blood Pressure 113/70 O2 Sat by Pulse 100 100 82 L Oximetry 12/24/16 12/24/16 12/24/16 21:04 21:08 21:09 Pulse Rate 110 H 89 83 Blood Pressure O2 Sat by Pulse 99 93 97 Oximetry 12/24/16 12/24/16 12/24/16 21:14 21:19 21:24 Pulse Rate 81 91 H 88 Blood Pressure O2 Sat by Pulse 99 99 100 Oximetry 12/24/16 12/24/16 12/24/16 21:28 21:29 21:34 Pulse Rate 100 H 100 H 85 Blood Pressure 112/83 O2 Sat by Pulse 94 97 100 Oximetry 12/24/16 12/24/16 12/24/16 21:39 21:43 21:49 Pulse Rate 78 74 78 Blood Pressure O2 Sat by Pulse 100 100 100 Oximetry 12/24/16 12/24/16 12/24/16 21:54 21:59 22:04 Pulse Rate 88 75 77 Blood Pressure 97/56 O2 Sat by Pulse 100 100 100 Oximetry 12/24/16 12/24/16 12/24/16 22:09 22:14 22:19 Pulse Rate 78 76 83 Blood Pressure O2 Sat by Pulse 99 100 99 Oximetry 12/24/16 12/24/16 12/24/16 22:24 22:29 22:30 Pulse Rate 76 81 75 Blood Pressure 94/50 O2 Sat by Pulse 100 100 Oximetry 12/24/16 12/24/16 12/24/16 22:34 22:39 22:44 Pulse Rate 78 75 75 Blood Pressure O2 Sat by Pulse 100 100 100 Oximetry 12/24/16 12/24/16 12/24/16 22:49 22:54 22:59 Pulse Rate 76 81 75 Blood Pressure 99/56 O2 Sat by Pulse 99 99 100 Oximetry 12/24/16 12/24/16 12/24/16 23:04 23:09 23:14 Pulse Rate 79 77 74 Blood Pressure O2 Sat by Pulse 100 100 100 Oximetry 12/24/16 12/24/16 12/24/16 23:19 23:24 23:29 Pulse Rate 82 76 78 Blood Pressure 101/49 O2 Sat by Pulse 99 99 99 Oximetry 12/24/16 12/24/16 12/24/16 23:34 23:39 23:44 Pulse Rate 81 83 74 Blood Pressure O2 Sat by Pulse 100 100 100 Oximetry 12/24/16 12/24/16 12/24/16 23:49 23:54 23:59 Pulse Rate 79 96 H 83 Blood Pressure 111/53 O2 Sat by Pulse 100 100 100 Oximetry 12/25/16 12/25/16 12/25/16 00:04 00:09 00:14 Pulse Rate 74 78 77 Blood Pressure O2 Sat by Pulse 100 100 100 Oximetry 12/25/16 12/25/16 12/25/16 00:19 00:24 00:29 Pulse Rate 78 79 76 Blood Pressure 108/65 O2 Sat by Pulse 100 100 100 Oximetry 12/25/16 12/25/16 12/25/16 00:34 00:39 00:44 Pulse Rate 82 101 H 83 Blood Pressure O2 Sat by Pulse 100 99 99 Oximetry 12/25/16 12/25/16 12/25/16 00:49 00:53 00:54 Pulse Rate 75 76 Blood Pressure O2 Sat by Pulse 100 85 71 L Oximetry 12/25/16 12/25/16 12/25/16 00:59 01:04 01:09 Pulse Rate 108 H 80 78 Blood Pressure 119/71 O2 Sat by Pulse 99 100 100 Oximetry 12/25/16 12/25/16 12/25/16 01:14 01:19 01:24 Pulse Rate 79 73 77 Blood Pressure O2 Sat by Pulse 100 100 100 Oximetry 12/25/16 12/25/16 12/25/16 01:29 01:59 02:03 Pulse Rate 75 106 H 98 H Blood Pressure 107/64 112/61 O2 Sat by Pulse 100 Oximetry 12/25/16 12/25/16 12/25/16 02:08 02:13 02:18 Pulse Rate 121 H 82 84 Blood Pressure O2 Sat by Pulse 100 100 100 Oximetry 12/25/16 12/25/16 12/25/16 02:23 02:28 02:30 Pulse Rate 85 83 83 Blood Pressure 110/63 O2 Sat by Pulse 100 100 Oximetry 12/25/16 12/25/16 12/25/16 02:33 02:38 02:43 Pulse Rate 81 81 79 Blood Pressure O2 Sat by Pulse 100 100 100 Oximetry 12/25/16 12/25/16 12/25/16 02:48 02:53 02:58 Pulse Rate 78 80 79 Blood Pressure O2 Sat by Pulse 100 100 100 Oximetry 12/25/16 12/25/16 12/25/16 03:00 03:03 03:08 Pulse Rate 87 84 86 Blood Pressure 113/72 O2 Sat by Pulse 100 100 Oximetry 12/25/16 12/25/16 12/25/16 03:13 03:18 03:23 Pulse Rate 109 H 86 83 Blood Pressure O2 Sat by Pulse 100 100 100 Oximetry 12/25/16 12/25/16 12/25/16 03:28 03:29 03:33 Pulse Rate 76 90 82 Blood Pressure 115/55 O2 Sat by Pulse 100 100 Oximetry 12/25/16 12/25/16 12/25/16 03:38 03:43 03:48 Pulse Rate 82 81 105 H Blood Pressure O2 Sat by Pulse 99 99 100 Oximetry 12/25/16 12/25/16 12/25/16 03:53 04:00 04:30 Pulse Rate 83 82 83 Blood Pressure 116/61 115/76 O2 Sat by Pulse 100 Oximetry 12/25/16 12/25/16 12/25/16 05:00 05:30 05:34 Pulse Rate 82 79 95 H Blood Pressure 110/53 105/55 O2 Sat by Pulse 99 Oximetry 12/25/16 12/25/16 12/25/16 05:39 05:44 05:49 Pulse Rate 73 85 82 Blood Pressure O2 Sat by Pulse 100 99 99 Oximetry 12/25/16 12/25/16 12/25/16 05:54 05:59 06:04 Pulse Rate 93 H 82 107 H Blood Pressure 104/53 O2 Sat by Pulse 99 99 99 Oximetry 12/25/16 12/25/16 12/25/16 06:09 06:14 06:19 Pulse Rate 101 H 106 H 94 H Blood Pressure O2 Sat by Pulse 100 100 100 Oximetry 12/25/16 12/25/16 12/25/16 06:24 06:29 06:34 Pulse Rate 101 H 110 H 82 Blood Pressure 117/67 O2 Sat by Pulse 100 100 100 Oximetry 12/25/16 12/25/16 12/25/16 06:39 06:44 06:49 Pulse Rate 81 90 95 H Blood Pressure O2 Sat by Pulse 100 100 100 Oximetry 12/25/16 12/25/16 12/25/16 06:54 06:59 07:04 Pulse Rate 84 99 H 104 H Blood Pressure 109/58 O2 Sat by Pulse 100 99 100 Oximetry 12/25/16 07:09 Pulse Rate 97 H Blood Pressure O2 Sat by Pulse 100 Oximetry - Exam Breasts: deferred Cardiovascular: Regular rate Lungs: Normal air movement Abdomen: Present: normal appearance, soft. Absent: distention, tenderness Uterus: Present: normal FHR: auscultation normal, category 2 (early decels) Uterine Contraction Monitor Mode: External Cervical Dilatation: 7 Cervical Effacement Percentage: 100 station: -1 Uterine Contraction Pattern: Regular Uterine Tone Measurement Phase: Resting Uterine Contraction Intensity: Moderate Extremities: normal Deep Tendon Reflex Grade: Normal +2 - Labs Labs: Abnormal Labs 12/24/16 12/24/16 15:50 15:50 Hgb 8.7 L Hct 27.3 L MCV 74 L MCH 23 L RDW 15.4 H Crossmatch See Detail Laboratory Results - last 24 hr 12/24/16 12/24/16 15:50 15:50 WBC 10.4 RBC 3.71 Hgb 8.7 L Hct 27.3 L MCV 74 L MCH 23 L MCHC 32 RDW 15.4 H Plt Count 379 Blood Type O POSITIVE Antibody Screen Negative Crossmatch See Detail
--- NOTE | 2016-12-25 07:25 | Anesthesia Day of Surgery ---
Anesthesia Day of Surgery - Day of Surgery Patient Examined: Yes Patient H&P Reviewed: Yes Patient is NPO: Yes
[2016-12-25] MEDS ORDERED: REGLAN IV NR (07:30)
[2016-12-25] MEDS ORDERED: PEPCID IV NR (07:30)
[2016-12-25] MEDS ORDERED: BICITRA PO NR (07:30)
[2016-12-25] MEDS ORDERED: NACL 0.9% 500 ML 500 ML IV NR (07:30)
[2016-12-25] MEDS ORDERED: XYLOCAINE MPF 2% ONE ×4 (07:41→07:49)
[2016-12-25] MEDS ORDERED: NACL 0.9% IR ONE (07:45)
[2016-12-25] MEDS ORDERED: WATER FOR IRRIG STERILE IR ONE (07:45)
[2016-12-25] MEDS ORDERED: METHERGINE IM ONE (07:49)
[2016-12-25] MEDS ORDERED: ANCEF/STERILE WATER 2 GM/20 ML IV ONE (07:55)
[2016-12-25] MEDS ORDERED: ANCEF/STERILE WATER 2 GM/20 ML 2 GM/20 ML SYRINGE IV NR (08:00)
[2016-12-25] MEDS ORDERED: LACTATED RINGERS 1,000 ML IV SCH (08:00)
[2016-12-25] MEDS: PITOCin/NS 20 UNIT/1000ML DRIP 20 UNITS/1,000 ML BAG IV SCH ×2 (08:12→09:55)
[2016-12-25] MEDS ORDERED: ZOFRAN ONE (08:22)
[2016-12-25] MEDS ORDERED: MORPHINE ONE ×2 (08:22)
--- NOTE | 2016-12-25 09:13 | Operative Report ---
Operative Report Operative Report: Date of procedure: 12/25/2016 Pre-operative diagnosis: 39-6/7 weeks gestation Prolonged rupture of amniotic membranes Failure to progress Group B strep positive Anemia Post-operative diagnosis: Same Procedure name(s): Primary low transverse section via Pfannenstiel skin incision Surgeon: Dr. aFria Manager Title: Ms. Lindsey Carlton, [employer] Anesthesia: Epidural EBL: 800 mL Urine output: 25 mL of clear urine at the end of the procedure Fluids: 800 mL Findings: Liveborn male weight 8 lbs. 6 oz. Apgars of 8 and 9 at one and 5 minutes Normal fallopian tubes and ovaries bilaterally normal uterus Indications: Patient presented with spontaneous rupture of membranes. Patient underwent Pitocin induction and progressed to approximately 7 cm. During the labor process patient's labor was dysfunctional remaining 4 cm for several hours and then progressing slowly to 7 cm without any change in cervix. There was also no change in station. Decision was made at this time to proceed to the operating room for primary section for failed to progress. Consents were signed and placed on the chart. All questions were addressed and answered. Procedure: Patient was taking to the operating room. Patient was then prepped and draped in sterile fashion after anesthesia was found to be adequate. A low transverse skin incision was made with the scalpel and carried down to the underlying layer of fascia with the Bovie. The fascia was then incised in the midline and this incision was extended bilaterally with the Bovie. The superior aspect of the fascia was grasped with Katrina clamps tented upward and dissected off of the anterior rectus muscles with the scalpel. In similar fashion the inferior aspect of the fascia was grasped with Katrina clamps tented upward and dissected off of the anterior rectus muscles. The rectus muscles were then bluntly divided in the midline. The peritoneum was identified and entered into sharply. The Yoan retractor was placed The bladder blade was placed. The bladder flap was created using the Metzenbaum scissors. The bladder blade was replaced. A lower transverse uterine incision was made with the scalpel and extended bilaterally with the bandage scissors. The infant's head was then delivered atraumatically. The anterior shoulder and rest of infant delivered without difficulty. The umbilical cord was clamped x2. The cord was cut. The was then placed in sterile bassinet. The cord blood was collected The placenta was manually extracted in its entirety. The uterus was exteriorized and cleared of all clots and debris. The uterine incision was closed using 0 Vicryl in a running locking fashion. A second imbricating layer of the same suture was then created. Tisseel was placed over the uterine incision to secure excellent hemostasis. The posterior cul-de-sac was copiously irrigated. The uterus was returned to the abdomen. The gutters were also irrigated. The anterior rectus muscles were reapproximated using 3-0 Vicryl. The anterior rectus fascia was reapproximated using 0 Vicryl in a running fashion. The subcuticular fat was reapproximated using 2-0 Vicryl in a running fashion. The skin was reapproximated with 4-0 Monocryl with a subcuticular stitch. The patient tolerated the procedure well. Sponge lap and needle counts were all correct x3. Patient was taken to the recovery room awake and in stable condition.
[2016-12-25] MEDS: DILAUDID IV PRN ×2 (09:14→10:29)
[2016-12-25] MEDS: TORADOL IV PRN ×2 (09:54→16:30)
[2016-12-25] MEDS ORDERED: LANSINOH TP PRN (10:00)
[2016-12-25] MEDS ORDERED: SODIUM CHLORIDE FLUSH SYRINGE 10 ML IV PRN (10:30)
[2016-12-25] MEDS ORDERED: NARCAN 0.4 MG/1 ML IV PRN (10:30)
[2016-12-25] MEDS ORDERED: TUCKS PAD TP PRN (10:30)
[2016-12-25] MEDS ORDERED: D5LR 1,000 ML IV SCH (10:30)
--- NOTE | 2016-12-25 11:02 | Post Anesthesia Evaluation ---
- Post Anesthesia Evaluation Patient Participated: Yes Airway Patent: Yes Stable Respiratory Function: Yes Nausea/Vomiting: No Temp > 96.8F: Yes Pain Manageable: Yes Adequeate Hydration: Yes Anesthesia Complications: No Block Receding Appropriately: Yes Patient on Ventilator: No
[2016-12-25] MEDS ORDERED: MORPHINE IV PRN ×2 (11:30)
[2016-12-25] MEDS ORDERED: FLUARIX QUAD 2016-2017(36 MOS+) IM ONE (12:00)
[2016-12-25] MEDS: ANCEF/NS 1 GM/50 ML 1 GM/50 ML BAG IV SCH (16:30)
[2016-12-25 21:18] LABS: Hemoglobin 10.2 gm/dl (10.1-14.3)
[2016-12-26] MEDS: ANCEF/NS 1 GM/50 ML 1 GM/50 ML BAG IV SCH (00:04)
[2016-12-26] MEDS: TORADOL IV PRN ×2 (00:06→05:22)
[2016-12-26] MEDS ORDERED: BOOSTRIX IM ONE (06:00)
--- NOTE | 2016-12-26 08:12 | Progress Note ---
Assessment and Plan Patient doing well, no complaints this morning. BLADE Donald, H&H 10.2/ 32.0. RN to remove dressing during AM care. Encouraged increase activity as tolerated. Continue postop pathway. - Patient Problems (1) delivery delivered Current Visit: Yes Status: Acute Subjective - Subjective Date of service: 12/26/16 Principal diagnosis: postop day #1 s/p primary c/s Patient reports: appetite normal, voiding normally, pain well controlled, flatus , ambulating normally, no dizzy ambulation, no nauseated : doing well, nursing well Objective - Vital Signs Latest vital signs: Vital Signs Temp Pulse Pulse Resp BP BP BP 12/26/16 04:15 98.6 F 86 20 112/63 12/26/16 00:00 98.1 F 90 20 104/74 12/25/16 20:00 98.2 F 85 20 109/72 12/25/16 16:40 98.4 F 102 H 18 122/74 12/25/16 16:10 98.8 F 95 H 18 115/61 12/25/16 15:45 98.6 F 95 H 18 115/61 12/25/16 15:40 98.8 F 105 H 18 112/59 12/25/16 15:10 99.0 F 105 H 18 115/65 12/25/16 14:40 99.3 F 96 H 18 114/58 12/25/16 14:25 99.1 F 100 H 20 112/58 12/25/16 10:45 99.1 F 86 86 16 129/75 129/75 12/25/16 10:20 98.1 F 92 H 11 L 118/75 12/25/16 10:15 95 H 19 125/69 12/25/16 10:10 89 22 121/76 12/25/16 10:05 92 H 15 114/80 12/25/16 10:00 94 H 12 126/79 12/25/16 09:55 91 H 17 116/76 12/25/16 09:50 99.9 F H 96 H 15 115/75 12/25/16 09:45 98 H 15 121/81 12/25/16 09:40 97 H 21 121/80 12/25/16 09:35 100.2 F H 99 H 9 L 122/80 12/25/16 09:30 96 H 15 123/78 12/25/16 09:25 100 H 20 121/82 12/25/16 09:20 99 H 18 130/84 12/25/16 09:15 97 H 13 125/76 12/25/16 09:10 99 H 18 134/84 12/25/16 09:05 100 H 22 130/74 12/25/16 09:00 99.0 F 104 H 20 134/81 12/25/16 08:57 105 H 29 H Pulse Ox 12/26/16 04:15 12/26/16 00:00 12/25/16 20:00 12/25/16 16:40 12/25/16 16:10 12/25/16 15:45 12/25/16 15:40 12/25/16 15:10 12/25/16 14:40 12/25/16 14:25 12/25/16 10:45 12/25/16 10:20 99 12/25/16 10:15 97 12/25/16 10:10 96 12/25/16 10:05 12/25/16 10:00 88 12/25/16 09:55 12/25/16 09:50 96 12/25/16 09:45 12/25/16 09:40 12/25/16 09:35 97 12/25/16 09:30 12/25/16 09:25 12/25/16 09:20 97 12/25/16 09:15 99 12/25/16 09:10 99 12/25/16 09:05 99 12/25/16 09:00 99 12/25/16 08:57 Intake and Output 12/25/16 12/26/16 12/26/16 22:59 06:59 14:59 Intake Total 1705 490 Output Total 1800 350 Balance -95 140 Intake: IV 735 250 ANCEF/NS 1 GM/50 ML 1 gm 100 In 50 ml @ 100 mls/hr IV Q8H HARPREET Rx#:[id number] D5lr 1,000 ml @ 125 mls/ 635 250 hr IV DIRECT HARPREET Rx#: [id number] Oral 720 240 Blood Product 250 Leukoreduced Red Blood 250 Cells Unit [id number] Output: Urine 1800 350 Indwelling Catheter 1100 Uretheral (Zheng) 700 Void 350 Other: Total, Intake Amount 240 240 Total, Output Amount 600 350 - Exam Breasts: Present: normal Cardiovascular: Present: Regular rate Lungs: Present: Clear to auscultation, Normal air movement Abdomen: Present: normal appearance, soft, normal bowel sounds Vulva: both: normal Uterus: Present: normal, firm, fundal height at umbilicus Extremities: Present: normal Deep Tendon Reflex Grade: Normal +2 Incision: Present: normal, dry, dressed - Labs Labs: Abnormal lab results 12/24/16 Range/Units 15:50 Crossmatch See Detail
[2016-12-26] MEDS: NORCO 5/325 PO PRN ×2 (09:57→20:30)
[2016-12-26] MEDS: FEOSOL PO SCH (09:57)
--- NOTE | 2016-12-26 10:26 | Progress Note ---
Subjective Date of service: 12/26/16 Principal diagnosis: postop day #1 s/p primary c/s Interval history: 1st POD after Patient is in the bed, comfortable. Pain is well controlled with pain meds. Ambulated well. No residual neurological deficit. No anesthesia complications Objective - Constitutional Vitals: Vital Signs - 12hr 12/26/16 12/26/16 12/26/16 00:00 04:15 07:35 Temperature 98.1 F 98.6 F 98.6 F Pulse Rate [ 90 86 76 From Monitor] Respiratory 20 20 18 Rate Blood Pressure 104/74 112/63 [Left Arm] Blood Pressure 106/56 [Right Arm] - Labs CBC & Chem 7: 12/25/16 21:05 Labs: Abnormal lab results 12/24/16 Range/Units 15:50 Crossmatch See Detail
[2016-12-26] MEDS: MOTRIN PO PRN (12:10)
[2016-12-26] MEDS ORDERED: FLUARIX QUAD 2016-2017(36 MOS+) IM ONE (15:45)
[2016-12-27] MEDS: NORCO 5/325 PO PRN ×3 (00:30→10:30)
[2016-12-27] MEDS: MOTRIN PO PRN ×2 (04:13→10:30)
--- NOTE | 2016-12-27 06:36 | Discharge Summary ---
Providers - Providers Date of Admission: 12/24/16 14:59 Date of discharge: 12/27/16 (pt desires d/c) Attending physician: ELVIE CUELLAR Primary care physician: ELVIE CUELLAR Hospitalization Reason for admission: active labor, IUP at term Delivery: Procedure: primary low transverse (failure to progress) Episiotomy: none Laceration: none Incision: normal, dry, intact Other procedures: none complications: none Discharge diagnosis: IUP at term delivered baby: male (desires circ to be done in OB office) Hospital course: uncomplicated section Pt w/o complaint Desires d/c today VSS FF below umb Lochia scant Incision D&I H& H Doing well s/p section P: d/c today with instructions RTO 1 week postop care and circ Condition at discharge: Good Disposition: DISCHARGED TO HOME OR SELFCARE - Discharge Diagnoses (1) delivery delivered Status: Acute Comment: RTO 1 week for postop care and circ Plan - Discharge Medications Prescriptions: Ferrous Sulfate [Feosol 325 MG tab] 325 mg PO BID #60 tablet Ibuprofen [Motrin 800 MG tab] 800 mg PO Q8HR PRN #30 tablet PRN Reason: Pain Lidocain2.5%/Prilocai2.5% [Emla] 2 gm TP ONCE #1 tube oxyCODONE /ACETAMINOPHEN [Percocet 5/325] 1 tab PO Q4HR #30 tab - Provider Discharge Summary Activity: routine, no sex for 6 weeks, no heavy lifting 4 weeks, no strenuous exercise Diet: routine Instructions: routine Additional instructions: [] Smoking cessation referral if applicable(refer to patient education folder for contact #) [] Refer to [facility] Booklet Call your doctor immediately for: * Fever > 100.5 * Heavy vaginal bleeding ( >1 pad per hour) * Severe persistent headache * Shortness of breath * Reddened, hot, painful area to leg or breast * Drainage or odor from incision. * Keep incision clean and dry at all times and follow doctor's instructions regarding bathing/showering - Follow up plan Follow up: ELVIE CUELLAR MD [Primary Care Provider] - 7 Days (Congratulations! Please call [phone] to schedule your postoperative appointment in 1 week. Your son's circumcision in 1 week, bring the EMLA cream with you to his visit. Take medications as prescribed. Call with concerns. )
[2016-12-27 07:45] VITALS: BP 103/71
[2016-12-27] MEDS: FEOSOL PO SCH (10:35)
== END 2016-12-27 10:40 | disposition home or self-care (01) | DRG 766 ==
LOC: TRG 14:04 → LD 14:59 → APU 12-25 10:01 → OB 12-25 10:39
PROVIDERS: ADMIT Obstetrics & Gynecology; ATTEND Obstetrics & Gynecology
PROC: 10D00Z1 Extraction of Products of Conception, Low, Open Approach (ICD-10-PCS; principal; 2016-12-25)
PROC: 30233N1 Transfusion of Nonautologous Red Blood Cells into Peripheral Vein, Percutaneous Approach (ICD-10-PCS; 2016-12-25)
DX: O75.82 Onset (spontaneous) of labor after 37 completed weeks of gestation but before 39 completed weeks gestation, with delivery by (planned) cesarean section (principal); O62.2 Other uterine inertia; O76 Abnormality in fetal heart rate and rhythm complicating labor and delivery; O99.02 Anemia complicating childbirth; O99.824 Streptococcus B carrier state complicating childbirth; D64.9 Anemia, unspecified; Z3A.39 39 weeks gestation of pregnancy; Z37.0 Single live birth; O99.213 Obesity complicating pregnancy, third trimester; E66.9 Obesity, unspecified; Z68.34 Body mass index [BMI] 34.0-34.9, adult
CPT/HCPCS: 36415; 85014; 85018; 85027; 86592; 86850; 86900; 86901; 86920; 88305; 88307; 90471; 90686; 90715; 96360; 96361; 96374; 99211; C9250; G0463; J0290; J0690; J1170; J1885; J2210; J2270; J2405; J2590; J2765; J3010; J7040; J7120; J7121; P9016

== ENCOUNTER 2018-04-08 01:26 | Outpatient (CLI) | payer OTHER, MEDICAID ==
[2018-04-08] MEDS ORDERED: LACTATED RINGERS 1,000 ML IV ONE (01:34)
[2018-04-08 02:25] LABS: Bilirubin,Urine NEG (Negative); Blood,Urine NEG (Negative); Color,Urine Yellow (Yellow); Mucus,Urine FEW /HPF; Protein,Urine <15 mg/dL mg/dL (Negative); Urobilinogen,Urine < 2.0 mg/dL (<2.0)
[2018-04-08 03:48] VITALS: BP 109/63
== END 2018-04-08 04:28 | disposition home or self-care (01) ==
LOC: TRG 01:26
PROVIDERS: ATTEND Obstetrics & Gynecology
DX: O47.02 False labor before 37 completed weeks of gestation, second trimester (principal); Z3A.27 27 weeks gestation of pregnancy
CPT/HCPCS: 59025; 81001; 82962; 96360; J7120

== ENCOUNTER 2018-04-09 23:11 | Observation (INO) | payer OTHER, MEDICAID ==
[2018-04-09] MEDS ORDERED: LACTATED RINGERS 1,000 ML IV ONE (23:36)
[2018-04-10 00:37] LABS: Bilirubin,Urine NEG (Negative); Blood,Urine NEG (Negative); Color,Urine Yellow (Yellow); Mucus,Urine 1+ /HPF; Protein,Urine <15 mg/dL mg/dL (Negative); Urobilinogen,Urine < 2.0 mg/dL (<2.0)
[2018-04-10] MEDS ORDERED: DEEP SEA NS PRN (01:50)
[2018-04-10] MEDS ORDERED: GUAIFENESIN DM SYRUP PO PRN (01:50)
[2018-04-10] MEDS ORDERED: BENADRYL PO PRN (01:50)
[2018-04-10] MEDS ORDERED: MYLICON PO PRN (01:50)
[2018-04-10] MEDS ORDERED: TYLENOL PO PRN (01:50)
[2018-04-10] MEDS ORDERED: MILK OF MAGNESIA PO PRN (01:50)
[2018-04-10] MEDS ORDERED: ALUM-MAG HYDROX-SIMETH 200-200-20MG/5ML PO PRN (01:50)
[2018-04-10] MEDS ORDERED: AMBIEN PO PRN (01:50)
[2018-04-10] MEDS ORDERED: COLACE PO PRN (01:50)
[2018-04-10] MEDS ORDERED: TUCKS PAD TP PRN (01:50)
[2018-04-10] MEDS ORDERED: ZOFRAN IV PRN (01:50)
[2018-04-10] MEDS ORDERED: LACTATED RINGERS 1,000 ML IV SCH (02:00)
[2018-04-10 02:33] LABS: Amphetamine Screen,Urine PRESUMPTIVE NEGATIVE; Benzodiazepines Screen,Urine PRESUMPTIVE NEGATIVE; Cannabinoid Screen,Urine PRESUMPTIVE NEGATIVE; Cocaine Screen,Urine PRESUMPTIVE NEGATIVE; Methadone Screen,Urine PRESUMPTIVE NEGATIVE; Opiate Screen,Urine PRESUMPTIVE NEGATIVE
--- NOTE | 2018-04-10 02:40 | History and Physical Report ---
History of Present Illness Date of examination: 04/10/18 Date of admission: 04/10/18 01:54 Chief complaint: Pelvic pressure, tachycardia History of present illness: Patient complains of pelvic pressure since 12noon on 04/09/2018. +FM, no vaginal bleeding, contractions or leaking fluid Past History Past Surgical History: section - Obstetrical History Expected Date of Delivery: 07/03/18 Actual Gestation: 28 Week(s) 0 Day(s) : 2 Medications and Allergies Allergies Allergy/AdvReac Type Severity Reaction Status Date / Time No Known Allergies Allergy Unverified 07/17/16 03:00 Home Medications Medication Instructions Recorded Confirmed Last Taken Type Tablet 1 tab PO DAILY 07/17/16 04/09/18 04/09/18 18:00 History Aspirin [Aspirin BABY CHEW TAB] 81 mg PO QDAY 04/08/18 04/09/18 04/09/18 18:00 History Ferrous Sulfate [Feosol 325 MG tab] 325 mg PO QDAY 04/08/18 04/09/18 04/09/18 18 :00 History Active Meds: Active Medications Acetaminophen (Tylenol) 650 mg PO Q4H PRN PRN Reason: Pain MILD(1-3)/Fever >100.5/MOORE Al Hydrox/Mg Hydrox/Simethicone (Alum-Mag Hydrox-Simeth [id number]/5ml) 30 ml PO Q6H PRN PRN Reason: Indigestion Betamethasone Acet/Betameth SodPhos (Celestone Soluspan) 12 mg IM Q24HR HARPREET Stop: 04/11/18 10:01 Diphenhydramine HCl (Benadryl) 25 mg PO Q6H PRN PRN Reason: Itching Docusate Sodium (Colace) 100 mg PO Q12H PRN PRN Reason: Constipation Guaifenesin (Guaifenesin Dm Syrup) 10 ml PO Q6H PRN PRN Reason: Cough Lactated Ringer's (Lactated Ringers) 1,000 mls @ 125 mls/hr IV DIRECT HARPREET Magnesium Hydroxide (Milk Of Magnesia) 30 ml PO QHS PRN PRN Reason: Laxative Effect Ondansetron HCl (Zofran) 4 mg IV Q6H PRN PRN Reason: Nausea And Vomiting Simethicone (Mylicon) 80 mg PO Q6H PRN PRN Reason: Gas pain Sodium Chloride (Deep Sea) 2 spray NS Q4H PRN PRN Reason: Congestion Witch Cadence/Glycerin (Tucks Pad) 1 each TP PRN PRN PRN Reason: Hemorrhoids Zolpidem Tartrate (Ambien) 5 mg PO ONCE PRN PRN Reason: Sleep Review of Systems All systems: negative Genitourinary: pelvic pain, no vaginal bleeding, no leakage of fluid, no dysuria - Vital Signs Vital signs: Vital Signs Temp Pulse Resp BP Pulse Ox 98.3 F 118 H 18 106/65 100 04/09/18 23:37 04/09/18 23:37 04/09/18 23:37 04/09/18 23:37 04/09/18 23:37 Temp Pulse Resp BP Pulse Ox 98.3 F 91 H 18 107/67 100 04/09/18 23:37 04/10/18 02:34 04/09/18 23:37 04/10/18 02:34 04/10/18 02:34 - Physical Exam Breasts: Positive: deferred Cardiovascular: Regular rate Lungs: Positive: Normal air movement Abdomen: Positive: normal appearance, soft. Negative: tenderness - Obstetrical FHR: category 2 FHR comments: Tachycardia resolved with IVF bolus Uterine Contraction Monitor Mode: External Cervical Dilatation: 1 (per RN) Results All other labs normal. Assessment and Plan Admit, continue fluid hydration, BPP, steroids observation - Patient Problems (1) 28 weeks gestation of Current Visit: Yes Status: Acute (2) Dichorionic diamniotic twin gestation Current Visit: Yes Status: Acute (3) Polyhydramnios, third trimester, fetus 1 Current Visit: Yes Status: Acute (4) tachycardia Current Visit: Yes Status: Acute
[2018-04-10] MEDS ORDERED: CELESTONE SOLUSPAN IM ONE (03:17)
[2018-04-10] MEDS ORDERED: AMBIEN ONE ×3 (03:32)
--- NOTE | 2018-04-10 03:32 | Ultrasound Report ---
FINAL REPORT EXAM: US OB BPP EA ADD EXAM HISTORY: twin gestation- tachycardia COMPARISON: None available. TECHNIQUE: Several real-time grayscale and color Doppler images were obtained. FINDINGS: Normal breathing movements, movements, posterior tone and qualitative amniotic fluid volume. heart rate 157 beats per minute. Largest amniotic fluid pocket 6.7 centimeters. There is a twin gestation. There appears to be a septum between the gestational indicating a diamniotic gestation. IMPRESSION: Biophysical profile score of one of the twin gestations is 8/8.
--- NOTE | 2018-04-10 03:33 | Ultrasound Report ---
FINAL REPORT EXAM: US OB BPP WO NON-STRESS HISTORY: twins tachycardia COMPARISON: None available. TECHNIQUE: Several real-time grayscale and color Doppler images were obtained. FINDINGS: Twin live IUPs. Evaluation twin A made on this exam. Normal breathing movements, movements, posterior tone and qualitative amniotic fluid volume. Largest pocket of amniotic fluid 5.7 centimeters. heart rate 166 beats per minute. There appears to be a septum between the gestational compatible diamniotic twin gestation. IMPRESSION: Biophysical profile score 8/8 of twin A.
[2018-04-10] MEDS ORDERED: CELESTONE SOLUSPAN IM SCH (04:00)
[2018-04-10 04:46] LABS: Hemoglobin 8.5 gm/dl (10.1-14.3); Mean Corpuscular HGB Conc 33 % (30-34); Mean Corpuscular Volume 79 fl (79-97); Platelet Count 347 K/mm3 (140-440); Red Blood Count 3.29 M/mm3 (3.65-5.03); Red Cell Distribution Width 14.3 % (13.2-15.2)
[2018-04-10 04:52] LABS: Mean Corpuscular Hemoglobin 26 pg (28-32)
[2018-04-10 12:36] VITALS: BP 110/68
--- NOTE | 2018-04-10 12:45 | Discharge Summary ---
Providers - Providers Date of Admission: 04/10/18 01:54 Date of discharge: 04/10/18 (Consulted with ; pt agrees to d/c) Attending physician: DOMONIQUE RAMÍREZ Primary care physician: BAUDILIO BILL Hospitalization Condition: Good Hospital course: pt admitted for observation and steriods Pt w/o complaint VSS FHR cat 1 twins BMZ given X 1 Will RT L&D tomorrow for second BMZ injection. Pt has appt with us Sunday and with [facility] at the end of the month. pt given PTL precautions Disposition: DC-01 TO HOME OR SELFCARE - Discharge Diagnoses (1) Dichorionic diamniotic twin gestation Status: Acute Qualifiers: Trimester: third trimester Qualified Code(s): O30.043 - Twin , dichorionic/diamniotic, third trimester Comment: RTO Sunday OB visit Core Measure Documentation - Palliative Care Palliative Care/ Comfort Measures: Not Applicable - Core Measures Any of the following diagnoses?: none - VTE Discharge Requirements Deep Vein Thrombosis/Pulmonary Embolism Present on Admission: No Has pt received <5 days of overlap therapy or INR<2.0: No Anticoagulant overlap therapy prescribed at discharge: No Contraindication No Overlap Therapy order at DC: Not Indicated - Acute MS Discharge Requirements Aspirin at discharge: No Reason for no aspirin on DC: Medical contraindication TREVER/ARB for LVSD if EF <40%: Not Applicable Reason for no TREVER/ARB: Medical contraindication Beta rivera at discharge: No Reason for no beta rivera on DC: Medical contraindication Statin for LDL = or >100 mg/dl on DC: Not Applicable Reason for no statin on DC: Medical contraindication Exam - Constitutional Vitals: Temp Pulse Resp BP Pulse Ox 97.6 F 87 18 110/68 100 04/10/18 12:34 04/10/18 12:39 04/10/18 12:34 04/10/18 12:39 04/10/18 12:39 General appearance: Present: no acute distress, well-nourished - EENT Eyes: Present: PERRL ENT: hearing intact, clear oral mucosa - Neck Neck: Present: supple, normal ROM - Respiratory Respiratory effort: normal Respiratory: bilateral: CTA - Cardiovascular Heart Sounds: Present: S1 & S2. Absent: rub, click - Extremities Extremities: pulses symmetrical, No edema Peripheral Pulses: within normal limits - Abdominal General gastrointestinal: Present: soft, non-tender, non-distended, normal bowel sounds Female genitourinary: Present: normal - Rectal Rectal Exam: deferred - Integumentary Integumentary: Present: clear, warm, dry - Musculoskeletal Musculoskeletal: gait normal, strength equal bilaterally - Psychiatric Psychiatric: appropriate mood/affect, intact judgment & insight - Neurologic Neurologic: CNII-XII intact, moves all extremities Plan Activity: advance as tolerated Weight Bearing Status: Non-Weight Bearing Diet: regular Follow up with: BAUDILIO BILL MD [Primary Care Provider] - 04/15/18 (Please drink at least one gallon of water a day. Limit salt intake. You will be out of work until your next visit. Return to Labor and Delivery at 10:00 AM tomorrow to receive your second steriod shot. They are aware you are coming. Call with contractions, leaking fluid, or bleeding. Call with any concerns. [phone].)
== END 2018-04-10 14:40 | disposition home or self-care (01) ==
LOC: TRG 23:11 → LD 04-10 01:54 → TRG 04-10 01:54
PROVIDERS: ADMIT Obstetrics & Gynecology; ATTEND Obstetrics & Gynecology
DX: O40.3XX2 Polyhydramnios, third trimester, fetus 2 (principal); O30.043 Twin pregnancy, dichorionic/diamniotic, third trimester; O76 Abnormality in fetal heart rate and rhythm complicating labor and delivery; Z3A.28 28 weeks gestation of pregnancy
CPT/HCPCS: 36415; 76819; 80307; 81001; 85027; 86850; 86900; 86901; 96360; 96361; 96372; G0378; J0702; J7120

== ENCOUNTER 2018-04-11 10:42 | Outpatient (CLI) | payer OTHER, MEDICAID ==
[2018-04-11] MEDS ORDERED: CELESTONE SOLUSPAN IM ONE ×2 (10:59→11:45)
[2018-04-11] MEDS: CELESTONE SOLUSPAN IM ONE (11:05)
== END 2018-04-11 11:10 | disposition home or self-care (01) ==
LOC: TRG 10:42
PROVIDERS: ATTEND Obstetrics & Gynecology
DX: O47.03 False labor before 37 completed weeks of gestation, third trimester (principal); O40.3XX1 Polyhydramnios, third trimester, fetus 1; O30.043 Twin pregnancy, dichorionic/diamniotic, third trimester; Z3A.28 28 weeks gestation of pregnancy
CPT/HCPCS: 96372; J0702

== ENCOUNTER 2018-05-13 15:34 | Outpatient (CLI) | payer OTHER, MEDICAID ==
[2018-05-13] MEDS ORDERED: BRETHINE SUB-Q ONE ×2 (17:00→20:13)
[2018-05-13] MEDS ORDERED: LACTATED RINGERS 500 ML IV ONE ×2 (17:48→18:32)
[2018-05-13] MEDS ORDERED: BRETHINE ONE (19:23)
[2018-05-13 19:45] VITALS: BP 112/65
[2018-05-13 20:41] LABS: Bilirubin,Urine NEG (Negative); Blood,Urine NEG (Negative); Color,Urine Yellow (Yellow); Mucus,Urine FEW /HPF; Protein,Urine <15 mg/dL mg/dL (Negative); Urobilinogen,Urine < 2.0 mg/dL (<2.0)
== END 2018-05-13 21:15 | disposition home or self-care (01) ==
LOC: TRG 15:34
PROVIDERS: ATTEND Obstetrics & Gynecology
DX: O47.03 False labor before 37 completed weeks of gestation, third trimester (principal); Z3A.32 32 weeks gestation of pregnancy
CPT/HCPCS: 59025; 81001; 96360; 96361; 96372; J3105; J7120

== ENCOUNTER 2018-05-17 00:32 | Outpatient (CLI) | payer OTHER, MEDICAID ==
[2018-05-17 01:21] VITALS: BP 97/54
[2018-05-17] MEDS ORDERED: LACTATED RINGERS 1,000 ML IV ONE (01:51)
== END 2018-05-17 04:12 | disposition home or self-care (01) ==
LOC: TRG 00:32
PROVIDERS: ATTEND Obstetrics & Gynecology
DX: O26.893 Other specified pregnancy related conditions, third trimester (principal); M54.5 Low back pain; R10.9 Unspecified abdominal pain; Z3A.33 33 weeks gestation of pregnancy
CPT/HCPCS: 59025; 96360; J7120

== ENCOUNTER 2018-05-28 19:17 | Outpatient (CLI) | payer OTHER, MEDICAID ==
[2018-05-28 20:02] VITALS: BP 112/68
[2018-05-28] MEDS ORDERED: LACTATED RINGERS 1,000 ML IV ONE (20:12)
[2018-05-28] MEDS ORDERED: LACTATED RINGERS 1,000 ML ONE (20:17)
[2018-05-28 21:08] LABS: Amorphous Crystals,Urine Few; Bilirubin,Urine NEG (Negative); Blood,Urine NEG (Negative); Color,Urine Yellow (Yellow); Protein,Urine <15 mg/dL mg/dL (Negative); Urobilinogen,Urine < 2.0 mg/dL (<2.0)
== END 2018-05-28 21:22 | disposition home or self-care (01) ==
LOC: TRG 19:17
PROVIDERS: ATTEND Obstetrics & Gynecology
DX: O47.03 False labor before 37 completed weeks of gestation, third trimester (principal); O99.213 Obesity complicating pregnancy, third trimester; Z3A.34 34 weeks gestation of pregnancy
CPT/HCPCS: 59025; 81001; 96360; J7120

== ENCOUNTER 2018-06-12 11:21 | Outpatient (CLI) | payer OTHER, MEDICAID ==
[2018-06-12] MEDS ORDERED: VISTARIL PO ONE (11:33)
[2018-06-12 11:49] VITALS: BP 113/81
[2018-06-12] MEDS ORDERED: LACTATED RINGERS 1,000 ML IV SCH (12:00)
[2018-06-12 13:12] LABS: Alanine Aminotransferase 6 units/L (7-56); Albumin 3.3 g/dL (3.9-5)
[2018-06-12 13:22] LABS: Bilirubin,Direct < 0.2 mg/dL (0-0.2)
[2018-06-12 13:49] LABS: Bacteria,Urine 1+ /HPF (Negative); Bilirubin,Urine NEG (Negative); Blood,Urine NEG (Negative); Color,Urine Yellow (Yellow); Hyaline Casts,Urine 1 /LPF; Mucus,Urine FEW /HPF; Protein,Urine <15 mg/dL mg/dL (Negative); Urobilinogen,Urine < 2.0 mg/dL (<2.0)
== END 2018-06-12 14:11 | disposition home or self-care (01) ==
LOC: TRG 11:21
PROVIDERS: ATTEND Obstetrics & Gynecology
DX: O47.03 False labor before 37 completed weeks of gestation, third trimester (principal); O99.213 Obesity complicating pregnancy, third trimester; Z3A.37 37 weeks gestation of pregnancy
CPT/HCPCS: 36415; 59025; 80074; 81001; 82239; J7120; Q0177

== ENCOUNTER 2018-12-05 09:33 | Emergency (ER) | payer MEDICAID, OTHER ==
[2018-12-05 10:07] VITALS: BP 108/76
--- NOTE | 2018-12-05 11:47 | Emergency Department Report ---
ED Back Pain/Injury HPI - General Chief Complaint: Back Pain/Injury Stated Complaint: RT SIDE CHEST/BACK PAIN Source: patient Limitations: No Limitations - History of Present Illness Initial Comments: This is a 3-year-old [place] female who presents with right flank pain for 2-3 days. Patient reports pain is intermittent sharp in intensity. Currently pain is 7 out of 10 on pain scale and non-radiating. She denies injury, frequency, hematuria, dysuria, vaginal bleeding, vaginal discharge, or pelvic pain. MD Complaint: back pain Onset/Timin -: days(s) Similar Symptoms Previously: No Place: home Radiation: flank (right) Severity: moderate Severity scale (0 -10): 7 Quality: sharp Consistency: intermittent Improves With: none Worsens With: none Context: unknown Associated Symptoms: denies: numbness, difficulty urinating, incontinence, fever /chills - Related Data Home Medications Medication Instructions Recorded Confirmed Last Taken Tablet 1 tab PO DAILY 07/17/16 06/09/18 06/08/18 10:00 Aspirin [Aspirin BABY CHEW TAB] 81 mg PO QDAY 04/08/18 06/09/18 06/08/18 10:00 Ferrous Sulfate [Feosol 325 MG tab] 325 mg PO QDAY 04/08/18 06/09/18 06/08/18 10:00 Previous Rx's Medication Instructions Recorded Last Taken Type Ferrous Sulfate [Feosol 325 MG tab] 325 mg PO BID #60 tablet 06/20/18 Unknown Rx Ibuprofen [Motrin 800 MG tab] 800 mg PO Q6H PRN #30 tablet 06/20/18 Unknown Rx Lidocain2.5%/Prilocai2.5% [Emla] 5 gm TP ONCE #1 tube 06/20/18 Unknown Rx oxyCODONE /ACETAMINOPHEN [Percocet 1 - 2 tab PO Q4H PRN #30 tablet 06/20/18 Unknown Rx 5/325 mg] Phenazopyridine [Pyridium] 200 mg PO TID #6 tab 12/05/18 Unknown Rx Sulfamethoxazole/Trimethoprim 1 each PO BID #6 tablet 12/05/18 Unknown Rx [Bactrim DS TAB] Allergies Allergy/AdvReac Type Severity Reaction Status Date / Time No Known Allergies Allergy Verified 06/09/18 04:52 ED Review of Systems ROS: Stated complaint: RT SIDE CHEST/BACK PAIN Other details as noted in HPI Constitutional: denies: chills, fever Respiratory: denies: cough, shortness of breath, wheezing Cardiovascular: denies: chest pain, palpitations Gastrointestinal: denies: abdominal pain, nausea, diarrhea Musculoskeletal: back pain (right flank). denies: joint swelling, arthralgia Skin: denies: rash, lesions Neurological: denies: headache, weakness, paresthesias Psychiatric: denies: anxiety, depression ED Back Pain Physical Exam - Exam General: Vital signs noted. No distress. Alert and acting appropriately. Back/Abdomen: Yes Flank Tenderness (right), No Abdominal Tenderness, No Perithoracic Tenderness, No Perilumbar Tenderness, No Sacroiliac Tenderness, No Straight Leg Raise Pain Neuro: Yes Normal Sensation, Yes Normal DTR's, Yes Normal Gait, No Motor Weakness ED Course Vital Signs 12/05/18 10:04 Temperature 98.3 F Pulse Rate 100 H Respiratory 16 Rate Blood Pressure 108/76 [Left] O2 Sat by Pulse 99 Oximetry Ed Back Pain Tests - Tests Tests: Abnormal UA (positive nitrates, elevated WBCs and moderate leukocyte is straight) ED Medical Decision Making - Lab Data Lab Results 12/05/18 Range/Units Unknown Urine Color Yellow (Yellow) Urine Turbidity Clear (Clear) Urine pH 5.0 (5.0-7.0) Ur Specific Grethel 1.025 (1.003-1.030) Urine Protein <15 mg/dl (Negative) mg/dL Urine Glucose (UA) Neg (Negative) mg/dL Urine Ketones Neg (Negative) mg/dL Urine Blood Neg (Negative) Urine Nitrite Pos (Negative) Ur Reducing Substances Not Reportable Urine Bilirubin Neg (Negative) Urine Ictotest Not Reportable Urine Urobilinogen < 2.0 (<2.0) mg/dL Ur Leukocyte Esterase Mod (Negative) Urine WBC (Auto) 23.0 H (0.0-6.0) /HPF Urine RBC (Auto) 6.0 (0.0-6.0) /HPF U Epithel Cells (Auto) 4.0 (0-13.0) /HPF Urine Bacteria (Auto) 2+ (Negative) /HPF Urine Mucus 3+ /HPF Urine HCG, Qual Negative (Negative) - Medical Decision Making Patient was examined by me. Vitals are normal and patient is in no acute distress. Obtained a urinalysis and urine test. Urine hCG negative. Urine positive for nitrates, elevated WBCs and moderate leukocyte Estrace. Acute cystitis Patient informed of results. Start Bactrim DS and Pyridium. Plan discussed with patient to discharge home and treat outpatient. She agrees with ER plan. Patient discharged home in stable condition. Follow up with PCP in 2-3 days. Critical care attestation.: If time is entered above; I have spent that time in minutes in the direct care of this critically ill patient, excluding procedure time. ED Disposition Clinical Impression: Acute cystitis, Right flank pain Disposition: TO HOME OR SELFCARE Is pt being admited?: No Does the pt Need Aspirin: No Condition: Stable Instructions: Urinary Tract Infection in Women (ED) Additional Instructions: Increase fluid intake to 1L to 2L daily. Complete full course of antibiotics as prescribed. Avoid drinking alcohol while taking antibiotics and for 24 hours after completion. Follow up with primary care provider in 2-3 days. Prescriptions: Sulfamethoxazole/Trimethoprim [Bactrim DS TAB] 1 each PO BID #6 tablet Phenazopyridine [Pyridium] 200 mg PO TID #6 tab Referrals: [facility] [Other] - 3-5 Days [facility] [Outside] - 3-5 Days [facility] [Outside] - 3-5 Days Time of Disposition: 12:14
[2018-12-05 12:04] LABS: Bacteria,Urine 2+ /HPF (Negative); Bilirubin,Urine NEG (Negative); Blood,Urine NEG (Negative); Color,Urine Yellow (Yellow); HCG Qualitative,Urine Negative (Negative); Mucus,Urine 3+ /HPF; Protein,Urine <15 mg/dL mg/dL (Negative); Urobilinogen,Urine < 2.0 mg/dL (<2.0)
== END 2018-12-05 12:30 | disposition home or self-care (01) ==
LOC: ED 09:33
DX: N30.00 Acute cystitis without hematuria (principal); Z79.82 Long term (current) use of aspirin
CPT/HCPCS: 81001; 81025; 99283

== ENCOUNTER 2019-02-20 00:30 | Emergency (ER) | payer MEDICAID ==
[2019-02-20] MEDS ORDERED: NACL 0.9% 1000 ML IV ONE (00:43)
[2019-02-20] MEDS ORDERED: TYLENOL PO ONE (00:53)
--- NOTE | 2019-02-20 00:53 | Emergency Department Report ---
HPI - General Chief Complaint: Nausea/Vomiting/Diarrhea Time Seen by Provider: 02/20/19 00:43 - HPI HPI: 23 year-old female presents to the emergency department from home with a complaint of some right-sided chest pain, nausea without vomiting, chills going on for the past 2 days. She gets sharp pains when she tries to take a deep breath. She denies any abdominal pain, dysuria, vaginal bleeding or discharge, rash. She took some Tylenol for her symptoms, last at 7 PM this evening, without much relief. She denies any past medical history. No recent travel or sick contacts at home. She is not a tobacco smoker but drinks just about every day. ED Past Medical Hx - Past Medical History Previous Medical History?: No Hx Hypertension: No Hx Congestive Heart Failure: No Hx Diabetes: No Hx Deep Vein Thrombosis: No Hx Renal Disease: No Hx Sickle Cell Disease: No Hx Seizures: No Hx Asthma: No Hx COPD: No Hx HIV: No - Surgical History Past Surgical History?: Yes Additional Surgical History: c-sect x2 - Social History Smoking Status: Never Smoker Substance Use Type: None - Medications Home Medications: Home Medications Medication Instructions Recorded Confirmed Last Taken Type Tablet 1 tab PO DAILY 07/17/16 06/09/18 06/08/18 10:00 History Aspirin [Aspirin BABY CHEW TAB] 81 mg PO QDAY 04/08/18 06/09/18 06/08/18 10:00 History Ferrous Sulfate [Feosol 325 MG tab] 325 mg PO QDAY 04/08/18 06/09/18 06/08/18 10:00 History Ferrous Sulfate [Feosol 325 MG tab] 325 mg PO BID #60 tablet 06/20/18 Unknown Rx Ibuprofen [Motrin 800 MG tab] 800 mg PO Q6H PRN #30 tablet 06/20/18 Unknown Rx Lidocain2.5%/Prilocai2.5% [Emla] 5 gm TP ONCE #1 tube 06/20/18 Unknown Rx oxyCODONE /ACETAMINOPHEN [Percocet 1 - 2 tab PO Q4H PRN #30 tablet 06/20/18 Unknown Rx 5/325 mg] Phenazopyridine [Pyridium] 200 mg PO TID #6 tab 12/05/18 Unknown Rx Sulfamethoxazole/Trimethoprim 1 each PO BID #6 tablet 12/05/18 Unknown Rx [Bactrim DS TAB] ED Review of Systems ROS: Stated complaint: RT SIDE BODY PAIN/NAUSEA Other details as noted in HPI Constitutional: chills, fever Eyes: denies: eye pain, vision change ENT: denies: ear pain, throat pain Respiratory: denies: cough, shortness of breath Cardiovascular: chest pain. denies: palpitations Gastrointestinal: nausea. denies: vomiting Genitourinary: denies: dysuria, discharge Musculoskeletal: myalgia. denies: back pain Skin: denies: rash, lesions Neurological: denies: headache, weakness Physical Exam - Physical Exam Vital Signs: Vital Signs 02/20/19 00:37 Temperature 101.6 F H Pulse Rate 125 H Respiratory 18 Rate Blood Pressure 119/73 O2 Sat by Pulse 99 Oximetry Physical Exam: GENERAL: The patient is well-developed well-nourished. HENT: Normocephalic. Atraumatic. Patient has moist mucous membranes. EYES: Extraocular motions are intact. Pupils equal reactive to light bilaterally. NECK: Supple. Trachea is midline. CHEST/LUNGS: Clear to auscultation. There is no respiratory distress noted. HEART/CARDIOVASCULAR: Regular. There is mild to moderate tachycardia. There is no murmur. ABDOMEN: Abdomen is soft, nontender. Patient has normal bowel sounds. There is no abdominal distention. SKIN: Skin is warm and dry. NEURO: The patient is awake, alert, and oriented. The patient is cooperative. The patient has no focal neurologic deficits. The patient has normal speech. MUSCULOSKELETAL: There is no tenderness or deformity. There is no limitation range of motion. There is no evidence of acute injury. ED Course Vital Signs 02/20/19 00:37 Temperature 101.6 F H Pulse Rate 125 H Respiratory 18 Rate Blood Pressure 119/73 O2 Sat by Pulse 99 Oximetry ED Medical Decision Making - Lab Data Result diagrams: 02/20/19 01:06 02/20/19 01:06 - EKG Data -: EKG Interpreted by Me EKG shows normal: sinus rhythm, axis, intervals, QRS complexes, ST-T waves Rate: tachycardia (103 bpm) - EKG Data When compared to previous EKG there are: previous EKG unavailable Interpretation: normal EKG - Radiology Data Radiology results: image reviewed interpreted by me: Chest x-ray does not show any acute process. There are no pleural effusions, obvious pneumonia and there is no pneumothorax. - Medical Decision Making 23-year-old female presents with some right-sided chest pain, fever, chills. On examination she has a normal sounding heart and lungs to auscultation. EKG does not show any signs of ST elevation AR, ischemia or dysrhythmia. Chest x-ray does not show any pneumonia, pleural effusions, pneumothorax, focal consolidation, or any other acute process. The patient's labs have been unremarkableother than a nonspecific leukocytosis of 18,000 and a mild hypokalemia with a potassium of 3.3. She was given a potassium chloride supplement. No source of infection has been seen. She was given some IV fluid resuscitation, Tylenol and Toradol. Upon reevaluation she is feeling improved. She will follow up with a primary care physician and will return to the ER with any worsening of her symptoms or any acute distress. - Differential Diagnosis viral syndrome, pneumonia, URI Critical Care Time: No Critical care attestation.: If time is entered above; I have spent that time in minutes in the direct care of this critically ill patient, excluding procedure time. ED Disposition Clinical Impression: Viral syndrome Fever Qualifiers: Fever type: unspecified Qualified Code(s): R50.9 - Fever, unspecified Disposition: DC-01 TO HOME OR SELFCARE Is pt being admited?: No Condition: Stable Instructions: Fever in Adults (ED), Viral Syndrome (ED) Additional Instructions: Please follow up with a primary care physician in the next few days. Return to the emergency Department with any worsening of your symptoms or any acute distress. You can take Tylenol every 4 hours and ibuprofen every 6 hours, using weight- based dosing on the back of the bottle, as needed for fever or discomfort. Referrals: WONG KING MD [Staff Physician] - 2-3 Days [facility] [Outside] - 2-3 Days Forms: Work/School Release Form(ED) Time of Disposition: 04:54
[2019-02-20] MEDS ORDERED: ZOFRAN IV ONE (01:02)
[2019-02-20 01:32] LABS: Basophils % (Auto) 0.3 % (0.0-1.8); Eosinophils % (Auto) 0.2 % (0.0-4.3); Hematocrit 34.4 % (30.3-42.9); Hemoglobin 11.1 gm/dl (10.1-14.3); Lymphocytes % (Auto) 5.2 % (13.4-35.0); Mean Corpuscular HGB Conc 32 % (30-34); Mean Corpuscular Volume 80 fl (79-97); Monocytes # (Auto) 1.5 K/mm3 (0.0-0.8); Monocytes % (Auto) 8.4 % (0.0-7.3); Platelet Count 367 K/mm3 (140-440); Red Blood Count 4.29 M/mm3 (3.65-5.03); Red Cell Distribution Width 16.9 % (13.2-15.2)
[2019-02-20 02:08] LABS: Alanine Aminotransferase 8 units/L (7-56); Albumin 3.5 g/dL (3.9-5); Calcium 8.4 mg/dL (8.4-10.2); Hemolysis Index 0
[2019-02-20] MEDS ORDERED: TORADOL IV ONE (02:10)
--- NOTE | 2019-02-20 02:25 | XRay Report ---
PROCEDURE: XR CHEST ROUTINE 2V TECHNIQUE: PA and lateral chest radiographs were obtained. HISTORY: right sided chest pain COMPARISONS: None. FINDINGS: Heart: Normal. Mediastinum/Vessels: Normal. Lungs/Pleural space: Normal. Bony thorax: No acute osseous abnormality. IMPRESSION: Normal examination. This document is electronically signed by Milagro Oconnor DO., Feb 20 2019 02:23:31 AM ET
[2019-02-20] MEDS ORDERED: K-DUR PO ONE (02:32)
[2019-02-20] MEDS ORDERED: NACL 0.9% 1000 ML 1,000 ML IV ONE (02:40)
[2019-02-20 02:48] LABS: Bilirubin,Urine NEG (Negative); Blood,Urine LG (Negative); Color,Urine Red (Yellow); Mucus,Urine FEW /HPF; Protein,Urine <15 mg/dL mg/dL (Negative); Urobilinogen,Urine < 2.0 mg/dL (<2.0)
[2019-02-20] MEDS ORDERED: ROCEPHIN/NS 1 GM/50 ML 1 GM/50 ML BAG IV ONE (02:50)
[2019-02-20 02:54] LABS: BUN/Creatinine Ratio 7; Blood Urea Nitrogen 5 mg/dL (7-17)
[2019-02-20 05:08] VITALS: BP 108/64
== END 2019-02-20 05:15 | disposition home or self-care (01) ==
LOC: ED 00:30
DX: B34.9 Viral infection, unspecified (principal); Z79.82 Long term (current) use of aspirin
CPT/HCPCS: 36415; 71046; 80053; 81001; 82140; 83690; 84484; 84703; 85025; 85379; 87040; 93005; 93010; 96365; 96375; 99284; G0480; J0696; J1885; J2405; J7030; 80320

== ENCOUNTER 2019-02-20 18:28 | Emergency (ER) | payer MEDICAID ==
--- NOTE | 2019-02-20 19:18 | Emergency Department Report ---
Blank Doc - Documentation Documentation: 23 y o female returns to Ed after being here last night cc of generalized body abhes and fever no other sx was told to take motrin and return if sx worsen 1 gram tylenol administered in triage
[2019-02-20] MEDS ORDERED: TYLENOL ONE (19:24)
[2019-02-20] MEDS ORDERED: TYLENOL PO ONE (19:32)
[2019-02-20 19:57] LABS: Basophils # (Auto) 0.1 K/mm3 (0.0-0.1); Basophils % (Auto) 0.4 % (0.0-1.8); Eosinophils % (Auto) 0.2 % (0.0-4.3); Hematocrit 33.5 % (30.3-42.9); Hemoglobin 10.8 gm/dl (10.1-14.3); Lymphocytes % (Auto) 6.2 % (13.4-35.0); Mean Corpuscular HGB Conc 32 % (30-34); Mean Corpuscular Volume 81 fl (79-97); Monocytes # (Auto) 1.1 K/mm3 (0.0-0.8); Monocytes % (Auto) 6.5 % (0.0-7.3); Platelet Count 340 K/mm3 (140-440); Red Blood Count 4.14 M/mm3 (3.65-5.03); Red Cell Distribution Width 17.1 % (13.2-15.2)
[2019-02-20 20:08] LABS: BUN/Creatinine Ratio 6; Blood Urea Nitrogen 4 mg/dL (7-17); Calcium 8.2 mg/dL (8.4-10.2); Hemolysis Index 2
[2019-02-20] MEDS ORDERED: TORADOL IV ONE (20:48)
[2019-02-20] MEDS ORDERED: MORPHINE IV ONE (20:48)
[2019-02-20] MEDS ORDERED: NACL 0.9% 1000 ML 1,000 ML IV ONE (20:49)
[2019-02-20] MEDS ORDERED: ZOFRAN IV ONE (20:49)
[2019-02-20 21:33] LABS: Bacteria,Urine 1+ /HPF (Negative); Bilirubin,Urine NEG (Negative); Blood,Urine MOD (Negative); Color,Urine Colorless (Yellow); Protein,Urine <15 mg/dL mg/dL (Negative); RBC,Urine < 1.0 /HPF (0.0-6.0); Urobilinogen,Urine < 2.0 mg/dL (<2.0); WBC,Urine < 1.0 /HPF (0.0-6.0)
[2019-02-20 21:34] LABS: HCG Qualitative,Urine Negative (Negative)
[2019-02-20 22:26] LABS: Alanine Aminotransferase 12 units/L (7-56); Albumin 3.4 g/dL (3.9-5)
[2019-02-20 22:30] LABS: Bilirubin,Direct < 0.2 mg/dL (0-0.2)
[2019-02-20] MEDS ORDERED: NORCO 10/325 PO ONE (23:43)
--- NOTE | 2019-02-20 23:50 | Cat Scan Report ---
PROCEDURE: CT CHEST W CON TECHNIQUE: Computerized axial tomography of the chest was performed during the IV injection of iodin ated nonionic contrast. CT DOSE LENGTH PRODUCT: 3720.9 mGycm HISTORY: chest pain,fever COMPARISONS: None . FINDINGS: Heart and pericardium: Normal. Thoracic aorta: Normal. Pulmonary vasculature: Normal. Lymph nodes: No enlarged thoracic lymph nodes. Lungs: Mild atelectasis and some light pleural thickening bilateral lower lungs. No acute consolidat ion or pneumothorax. The central airway is patent. Pleural space: Mild pleural thickening bilateral lower lungs. Musculoskeletal structures: No significant abnormality. Upper abdominal structures: No significant abnormality. IMPRESSION: There is mild atelectasis and slight pleural thickening in both lower lungs. No evidence of consolidation or pneumothorax.. This document is electronically signed by Milagro Oconnor DO., Feb 20 2019 11:48:50 PM ET
--- NOTE | 2019-02-20 23:56 | Cat Scan Report ---
PROCEDURE: CT ABDOMEN PELVIS W CON TECHNIQUE: Computerized axial tomography of the abdomen and pelvis was performed after the IV inject ion of iodinated nonionic contrast. HISTORY: abd pain, fever, low back pain COMPARISONS: None . FINDINGS: Visualized lower thorax: No significant abnormality. Liver: Normal size and attenuation. Spleen: Normal size and attenuation. Gallbladder and biliary system: Normal. Pancreas: Pancreas size is normal. In the mid body of the pancreas there is a 8 mm cyst. The remaind er of the pancreatic attenuation is normal.. Adrenals: Normal. Kidneys: Normal. GI tract: The stomach is normal. The small bowel has normal caliber. No obstruction is seen. Cecum, appendix and colon are normal. There is a moderate umbilical hernia containing mesenteric fat. . Lymph nodes and mesentery: Normal. Vasculature: Normal.. Bladder: Normal. Reproductive organs: The uterus is normal. No pelvic masses. Minimal fluid lower pelvis.. Peritoneum: Minimal fluid lower pelvis. Musculoskeletal structures: No significant abnormality. Other: None . IMPRESSION: There is no evidence of intestinal or urinary tract obstruction. No ileus or enteritis. The appendix is normal. There is a fat-containing moderate-sized umbilical hernia cavity. In the mid body of the pancreas there is an 8 mm cyst. This appears benign on this examination. The r emainder of the pancreatic attenuation in size is normal. Minimal fluid in the lower pelvis is noted. . This document is electronically signed by Milagro Oconnor DO., Feb 20 2019 11:54:29 PM ET
[2019-02-21] MEDS ORDERED: MORPHINE IV ONE (00:04)
--- NOTE | 2019-02-21 00:58 | Emergency Department Report ---
ED General Adult HPI - General Chief complaint: Weakness Stated complaint: BODY ACHES/PAIN ALL OVER Time Seen by Provider: 02/20/19 19:15 Source: patient Mode of arrival: Ambulatory Limitations: No Limitations - History of Present Illness Initial comments: This is a 23-year-old Iranian female who presents with right flank pain for 2-3 days, chest pain and back pain for the same amount of time. She was seen in ER earlier, was d/c home but got weak, so she came back for further txt. denies any headache or neck pain. Patient reports pain is intermittent sharp in intensity. Currently pain is 7 out of 10 on pain scale and non-radiating. She denies injury, frequency, hematuria, dysuria, vaginal bleeding, vaginal discharge, or pelvic Severity scale (0 -10): 3 - Related Data Home Medications Medication Instructions Recorded Confirmed Last Taken Tablet 1 tab PO DAILY 07/17/16 06/09/18 06/08/18 10:00 Aspirin [Aspirin BABY CHEW TAB] 81 mg PO QDAY 04/08/18 06/09/18 06/08/18 10:00 Ferrous Sulfate [Feosol 325 MG tab] 325 mg PO QDAY 04/08/18 06/09/18 06/08/18 10:00 Previous Rx's Medication Instructions Recorded Last Taken Type Ferrous Sulfate [Feosol 325 MG tab] 325 mg PO BID #60 tablet 06/20/18 Unknown Rx Ibuprofen [Motrin 800 MG tab] 800 mg PO Q6H PRN #30 tablet 06/20/18 Unknown Rx Lidocain2.5%/Prilocai2.5% [Emla] 5 gm TP ONCE #1 tube 06/20/18 Unknown Rx oxyCODONE /ACETAMINOPHEN [Percocet 1 - 2 tab PO Q4H PRN #30 tablet 06/20/18 Unknown Rx 5/325 mg] Phenazopyridine [Pyridium] 200 mg PO TID #6 tab 12/05/18 Unknown Rx HYDROcodone/APAP 5-325 [[place] 1 each PO Q6HR PRN #10 tablet 02/21/19 Unknown Rx 5/325] Sulfamethoxazole/Trimethoprim 1 each PO BID #14 tablet 02/21/19 Unknown Rx [Bactrim DS TAB] Allergies Allergy/AdvReac Type Severity Reaction Status Date / Time No Known Allergies Allergy Verified 06/09/18 04:52 ED Review of Systems ROS: Stated complaint: BODY ACHES/PAIN ALL OVER Other details as noted in HPI ED Past Medical Hx - Past Medical History Previous Medical History?: No Hx Hypertension: No Hx Congestive Heart Failure: No Hx Diabetes: No Hx Deep Vein Thrombosis: No Hx Renal Disease: No Hx Sickle Cell Disease: No Hx Seizures: No Hx Asthma: No Hx COPD: No Hx HIV: No - Surgical History Past Surgical History?: Yes Additional Surgical History: c-sect x2 - Social History Smoking Status: Never Smoker Substance Use Type: Alcohol - Medications Home Medications: Home Medications Medication Instructions Recorded Confirmed Last Taken Type Tablet 1 tab PO DAILY 07/17/16 06/09/18 06/08/18 10:00 History Aspirin [Aspirin BABY CHEW TAB] 81 mg PO QDAY 04/08/18 06/09/18 06/08/18 10:00 History Ferrous Sulfate [Feosol 325 MG tab] 325 mg PO QDAY 04/08/18 06/09/18 06/08/18 10:00 History Ferrous Sulfate [Feosol 325 MG tab] 325 mg PO BID #60 tablet 06/20/18 Unknown Rx Ibuprofen [Motrin 800 MG tab] 800 mg PO Q6H PRN #30 tablet 06/20/18 Unknown Rx Lidocain2.5%/Prilocai2.5% [Emla] 5 gm TP ONCE #1 tube 06/20/18 Unknown Rx oxyCODONE /ACETAMINOPHEN [Percocet 1 - 2 tab PO Q4H PRN #30 tablet 06/20/18 Unknown Rx 5/325 mg] Phenazopyridine [Pyridium] 200 mg PO TID #6 tab 12/05/18 Unknown Rx HYDROcodone/APAP 5-325 [[place] 1 each PO Q6HR PRN #10 tablet 02/21/19 Unknown Rx 5/325] Sulfamethoxazole/Trimethoprim 1 each PO BID #14 tablet 02/21/19 Unknown Rx [Bactrim DS TAB] ED Physical Exam - General Limitations: No Limitations General appearance: alert, in no apparent distress - Head Head exam: Present: atraumatic, normocephalic - Eye Eye exam: Present: normal appearance, PERRL, EOMI Pupils: Present: normal accommodation - ENT ENT exam: Present: normal exam, normal orophraynx - Neck Neck exam: Present: normal inspection, full ROM. Absent: meningismus - Respiratory Respiratory exam: Present: normal lung sounds bilaterally, respiratory distress - Cardiovascular Cardiovascular Exam: Present: regular rate, normal rhythm - GI/Abdominal GI/Abdominal exam: Present: soft, normal bowel sounds - Rectal Rectal exam: Present: deferred - Extremities Exam Extremities exam: Present: normal inspection - Back Exam Back exam: Present: normal inspection - Neurological Exam Neurological exam: Present: alert, oriented X3 ED Course Vital Signs 02/20/19 02/20/19 02/20/19 19:16 19:55 20:10 Temperature 100.5 F H 99.3 F Pulse Rate 125 H 107 H Respiratory 18 20 20 Rate Blood Pressure 119/80 Blood Pressure 107/68 [Left] O2 Sat by Pulse 99 Oximetry 02/20/19 02/20/19 02/20/19 20:55 21:00 21:01 Temperature Pulse Rate Respiratory 18 18 18 Rate Blood Pressure Blood Pressure [Left] O2 Sat by Pulse Oximetry 02/20/19 02/20/19 02/21/19 21:30 21:31 00:42 Temperature Pulse Rate Respiratory 18 18 18 Rate Blood Pressure Blood Pressure [Left] O2 Sat by Pulse Oximetry 02/21/19 01:45 Temperature 98.2 F Pulse Rate 88 Respiratory 18 Rate Blood Pressure Blood Pressure 117/73 [Left] O2 Sat by Pulse 97 Oximetry ED Medical Decision Making - Lab Data Result diagrams: 02/20/19 19:36 02/20/19 19:36 Critical care attestation.: If time is entered above; I have spent that time in minutes in the direct care of this critically ill patient, excluding procedure time. ED Disposition Clinical Impression: Pleurisy Fever Qualifiers: Fever type: unspecified Qualified Code(s): R50.9 - Fever, unspecified Disposition: DC-01 TO HOME OR SELFCARE Is pt being admited?: No Does the pt Need Aspirin: No Condition: Stable Instructions: Pleurisy (ED) Prescriptions: Sulfamethoxazole/Trimethoprim [Bactrim DS TAB] 1 each PO BID #14 tablet HYDROcodone/APAP 5-325 [[place] 5/325] 1 each PO Q6HR PRN #10 tablet PRN Reason: Pain Referrals: ROMEO SOUSA MD [Primary Care Provider] - 3-5 Days Forms: Accompanied Note, Work/School Release Form(ED)
[2019-02-21 01:46] VITALS: BP 117/73
== END 2019-02-21 01:25 | disposition home or self-care (01) ==
LOC: ED 18:28
DX: R09.1 Pleurisy (principal); R50.9 Fever, unspecified
CPT/HCPCS: 36415; 71260; 74177; 80048; 80076; 81001; 81025; 83615; 85025; 87040; 96374; 96375; 96376; 99284; J1885; J2270; J2405; J7030; Q9967; 71046; 80053; 80320; 82140; 83690; 84484; 84703; 85379; 93005; 93010; 96365; G0480; J0696

== ENCOUNTER 2019-06-26 21:38 | Emergency (ER) | payer MEDICAID ==
[2019-06-26 22:04] VITALS: BP 118/74
--- NOTE | 2019-06-26 22:09 | Event Note ---
ED Screening Note Date of service: 06/26/19 Time: 22:04 ED Screening Note: This is a 23 y.o. F. that presents to the ER N/V/D and headache for 1 day. Reports everyone in the home is sick with similar symptoms. She have not taken anything for symptom relief. Reports intermittent abdominal cramping. This initial assessment/diagnostic orders/clinical plan/treatment(s) is/are subject to change based on patients health status, clinical progression and re- assessment by fellow clinical providers in the ED. Further treatment and workup at subsequent clinical providers discretion. Patient/guardian urged not to elope from the ED as their condition may be serious if not clinically assessed and managed. Initial orders include: Labs
[2019-06-26 23:04] LABS: Hematocrit 42.7 % (30.3-42.9); Hemoglobin 13.8 gm/dl (10.1-14.3); Mean Corpuscular HGB Conc 32 % (30-34); Mean Corpuscular Volume 83 fl (79-97); Platelet Count 400 K/mm3 (140-440); Red Blood Count 5.13 M/mm3 (3.65-5.03); Red Cell Distribution Width 16.2 % (13.2-15.2)
[2019-06-26 23:25] LABS: Alanine Aminotransferase 14 units/L (7-56); Albumin 4.5 g/dL (3.9-5); BUN/Creatinine Ratio 20; Blood Urea Nitrogen 14 mg/dL (7-17); Hemolysis Index 1
[2019-06-26] MEDS ORDERED: DICYCLOMINE 10 MG/5 ML ORAL LIQD PO ONE (23:27)
[2019-06-26] MEDS ORDERED: ONDANSETRON 4 MG ODT TAB PO ONE (23:27)
[2019-06-26] MEDS ORDERED: DICYCLOMINE 20 MG TAB ONE (23:49)
--- NOTE | 2019-06-27 00:08 | Emergency Department Report ---
ED N/V/D HPI - General Chief complaint: Nausea/Vomiting/Diarrhea Stated complaint: VOMITING, DIARRHEA Time Seen by Provider: 06/26/19 22:04 Source: patient Mode of arrival: Ambulatory Limitations: No Limitations - History of Present Illness Initial comments: This is a 23-year-old female nontoxic, well nourished in appearance, no acute signs of distress presents to the ED with c/o of nausea and vomiting 1 day. Patient stated that symptoms started with her 3 children. Patient describes vomiting as food content. Patient denies any abdominal pain, chest pain, short of breath, fever, chills, headache, stiff neck, numbness or tingling. Patient denies any diarrhea or constipation. Patient denies any recent travels. Patient denies any drug allergies significant past medical history. MD complaint: nausea, vomiting -: days(s) (1) Associated Abdominal Pain: No Radiation: none Pain Scale: 0 Improves with: none Worsens with: none Associated Symptoms: nausea/vomiting. denies: myalgias, chest pain, cough, diaphoresis, fever/chills, headaches, loss of appetite, malaise, rash, dysuria, shortness of breath, syncope, weakness - Related Data Home Medications Medication Instructions Recorded Confirmed Last Taken Tablet 1 tab PO DAILY 07/17/16 06/09/18 06/08/18 10:00 Aspirin [Aspirin BABY CHEW TAB] 81 mg PO QDAY 04/08/18 06/09/18 06/08/18 10:00 Ferrous Sulfate [Feosol 325 MG tab] 325 mg PO QDAY 04/08/18 06/09/18 06/08/18 10:00 Previous Rx's Medication Instructions Recorded Last Taken Type Ferrous Sulfate [Feosol 325 MG tab] 325 mg PO BID #60 tablet 06/20/18 Unknown Rx Ibuprofen [Motrin 800 MG tab] 800 mg PO Q6H PRN #30 tablet 06/20/18 Unknown Rx Lidocain2.5%/Prilocai2.5% [Emla] 5 gm TP ONCE #1 tube 06/20/18 Unknown Rx oxyCODONE /ACETAMINOPHEN [Percocet 1 - 2 tab PO Q4H PRN #30 tablet 06/20/18 Unknown Rx 5/325 mg] Phenazopyridine [Pyridium] 200 mg PO TID #6 tab 12/05/18 Unknown Rx HYDROcodone/APAP 5-325 [[place] 1 each PO Q6HR PRN #10 tablet 02/21/19 Unknown Rx 5/325] Sulfamethoxazole/Trimethoprim 1 each PO BID #14 tablet 02/21/19 Unknown Rx [Bactrim DS TAB] Ondansetron [Zofran Odt] 4 mg PO Q8HR PRN #20 tab.rapdis 06/27/19 Unknown Rx Allergies Allergy/AdvReac Type Severity Reaction Status Date / Time No Known Allergies Allergy Verified 06/09/18 04:52 ED Review of Systems ROS: Stated complaint: VOMITING, DIARRHEA Other details as noted in HPI Constitutional: denies: chills, fever Eyes: denies: eye pain, eye discharge, vision change ENT: denies: ear pain, throat pain Respiratory: denies: cough, shortness of breath, wheezing Cardiovascular: denies: chest pain, palpitations Endocrine: no symptoms reported Gastrointestinal: nausea, vomiting. denies: abdominal pain, diarrhea Genitourinary: denies: urgency, dysuria, discharge Musculoskeletal: denies: back pain, joint swelling, arthralgia Skin: denies: rash, lesions Neurological: denies: headache, weakness, paresthesias Psychiatric: denies: anxiety, depression Hematological/Lymphatic: denies: easy bleeding, easy bruising ED Past Medical Hx - Past Medical History Previous Medical History?: No Hx Hypertension: No Hx Congestive Heart Failure: No Hx Diabetes: No Hx Deep Vein Thrombosis: No Hx Renal Disease: No Hx Sickle Cell Disease: No Hx Seizures: No Hx Asthma: No Hx COPD: No Hx HIV: No - Surgical History Past Surgical History?: Yes Additional Surgical History: c-sect x2 - Social History Smoking Status: Never Smoker - Medications Home Medications: Home Medications Medication Instructions Recorded Confirmed Last Taken Type Tablet 1 tab PO DAILY 07/17/16 06/09/18 06/08/18 10:00 History Aspirin [Aspirin BABY CHEW TAB] 81 mg PO QDAY 04/08/18 06/09/18 06/08/18 10:00 History Ferrous Sulfate [Feosol 325 MG tab] 325 mg PO QDAY 04/08/18 06/09/18 06/08/18 10:00 History Ferrous Sulfate [Feosol 325 MG tab] 325 mg PO BID #60 tablet 06/20/18 Unknown Rx Ibuprofen [Motrin 800 MG tab] 800 mg PO Q6H PRN #30 tablet 06/20/18 Unknown Rx Lidocain2.5%/Prilocai2.5% [Emla] 5 gm TP ONCE #1 tube 06/20/18 Unknown Rx oxyCODONE /ACETAMINOPHEN [Percocet 1 - 2 tab PO Q4H PRN #30 tablet 06/20/18 Unknown Rx 5/325 mg] Phenazopyridine [Pyridium] 200 mg PO TID #6 tab 12/05/18 Unknown Rx HYDROcodone/APAP 5-325 [[place] 1 each PO Q6HR PRN #10 tablet 02/21/19 Unknown Rx 5/325] Sulfamethoxazole/Trimethoprim 1 each PO BID #14 tablet 02/21/19 Unknown Rx [Bactrim DS TAB] Ondansetron [Zofran Odt] 4 mg PO Q8HR PRN #20 tab.rapdis 06/27/19 Unknown Rx ED Physical Exam - General Limitations: No Limitations General appearance: alert, in no apparent distress - Head Head exam: Present: atraumatic, normocephalic - Neck Neck exam: Present: normal inspection, full ROM. Absent: tenderness, meningismus, lymphadenopathy - Respiratory Respiratory exam: Present: normal lung sounds bilaterally. Absent: respiratory distress - Cardiovascular Cardiovascular Exam: Present: regular rate, normal rhythm, normal heart sounds - GI/Abdominal GI/Abdominal exam: Present: soft, normal bowel sounds. Absent: distended, tenderness, guarding, rebound, rigid, diminished bowel sounds - Extremities Exam Extremities exam: Present: normal inspection, full ROM - Back Exam Back exam: Present: normal inspection, full ROM. Absent: tenderness, CVA tenderness (R), CVA tenderness (L), muscle spasm, paraspinal tenderness, vertebral tenderness, rash noted - Neurological Exam Neurological exam: Present: alert, oriented X3, normal gait - Psychiatric Psychiatric exam: Present: normal affect, normal mood - Skin Skin exam: Present: warm, dry, intact, normal color. Absent: rash ED Course Vital Signs 06/26/19 21:56 Temperature 97.6 F Pulse Rate 98 H Respiratory 18 Rate Blood Pressure 118/74 O2 Sat by Pulse 97 Oximetry - Reevaluation(s) Reevaluation #1: 06/27/19 00:07 Patient is speaking in full sentences with no signs of distress noted. ED Medical Decision Making - Lab Data Result diagrams: 06/26/19 22:35 06/26/19 22:35 - Medical Decision Making This is a 23-year-old female that presents with nausea and vomiting. Patient is stable and was examined by me. There is no abdominal tenderness. Negative signs of symptoms of appendicitis. Labs obtained. UA obtained. Vital signs are stable prior to discharge. Patient received Zofran in the ED which patient stated symptoms has resovled and subsided. A by mouth challenge has been obtained and patient tolerated well with no nausea vomiting. Patient was also instructed to Follow-up with a primary care doctor in 3-5 days or if symptoms worsen and continue return to emergency room as soon as possible. At time of discharge, the patient does not seem toxic or ill in appearance. No acute signs of distress noted. Patient agrees to discharge treatment plan of care. No further questions noted by the patient. Critical care attestation.: If time is entered above; I have spent that time in minutes in the direct care of this critically ill patient, excluding procedure time. ED Disposition Clinical Impression: Nausea & vomiting Qualifiers: Vomiting type: unspecified Vomiting Intractability: non-intractable Qualified Code(s): R11.2 - Nausea with vomiting, unspecified Disposition: DC-01 TO HOME OR SELFCARE Is pt being admited?: No Does the pt Need Aspirin: No Condition: Stable Instructions: Acute Nausea and Vomiting (ED) Additional Instructions: Follow-up with a primary care doctor in 3-5 days or if symptoms worsen and continue return to emergency room as soon as possible. Prescriptions: Ondansetron [Zofran Odt] 4 mg PO Q8HR PRN #20 tab.rapdis PRN Reason: Nausea Referrals: PRIMARY CARE, [Primary Care Provider] - 3-5 Days RADHA CHENG MD [Staff Physician] - 3-5 Days [facility] [Outside] - 3-5 Days [facility] [Outside] - 3-5 Days Forms: Work/School Release Form(ED)
[2019-06-27 00:25] LABS: Bilirubin,Urine NEG (Negative); Blood,Urine NEG (Negative); Color,Urine Yellow (Yellow); Mucus,Urine 1+ /HPF; Protein,Urine <15 mg/dL mg/dL (Negative); Urobilinogen,Urine < 2.0 mg/dL (<2.0)
[2019-06-27 00:29] LABS: HCG Qualitative,Urine Negative (Negative)
[2019-06-27 08:08] LABS: Bacteria,Urine 1+ /HPF (Negative)
== END 2019-06-27 00:46 | disposition home or self-care (01) ==
LOC: ED 21:38
DX: R11.2 Nausea with vomiting, unspecified (principal); Z79.82 Long term (current) use of aspirin; Z79.899 Other long term (current) drug therapy; Z79.1 Long term (current) use of non-steroidal anti-inflammatories (NSAID)
CPT/HCPCS: 36415; 80053; 81001; 81025; 83690; 85027; 99283; Q0162

== ENCOUNTER 2020-12-20 18:11 | Emergency (ER) | payer MEDICAID ==
[2020-12-20 18:31] VITALS: BP 117/75
--- NOTE | 2020-12-20 20:08 | Event Note ---
ED Screening Note Date of service: 12/20/20 Time: 20:04 ED Screening Note: 25-year-old morbid obese -Filipino female presents to the emergency room stating she did 3 home tests and they came out positive. Patient states that she woke up this morning about 9 AM she started having some spotting. She has gone through no pads. She is 3 para 2 with last menstrual period on November 10, 2020. Patient does admit to some mild pelvic cramping. This initial assessment/diagnostic orders/clinical plan/treatment(s) is/are subject to change based on patients health status, clinical progression and re- assessment by fellow clinical providers in the ED. Further treatment and workup at subsequent clinical providers discretion. Patient/guardian urged not to elope from the ED as their condition may be serious if not clinically assessed and managed. Initial orders include:
[2020-12-20 20:35] LABS: Basophils % (Auto) 0.4 % (0.0-1.8); Eosinophils # (Auto) 0.2 K/mm3 (0.0-0.4); Hemoglobin 13.6 gm/dl (10.1-14.3); Lymphocytes # (Auto) 2.5 K/mm3 (1.2-5.4); Lymphocytes % (Auto) 23.2 % (13.4-35.0); Mean Corpuscular HGB Conc 32 % (30-34); Mean Corpuscular Volume 87 fl (79-97); Monocytes # (Auto) 1.1 K/mm3 (0.0-0.8); Monocytes % (Auto) 10.4 % (0.0-7.3); Platelet Count 429 K/mm3 (140-440); Red Blood Count 4.83 M/mm3 (3.65-5.03); Red Cell Distribution Width 14.5 % (13.2-15.2)
[2020-12-20 20:38] LABS: Bilirubin,Urine NEG (Negative); Blood,Urine LG (Negative); Color,Urine Red (Yellow); Mucus,Urine 1+ /HPF; Urobilinogen,Urine < 2.0 mg/dL (<2.0)
--- NOTE | 2020-12-20 21:59 | Emergency Department Report ---
ED HPI - General Chief complaint: Vaginal Bleeding Stated complaint: 5WKS /BLEEDING/CRAMPING Time Seen by Provider: 12/20/20 21:23 Source: patient Mode of arrival: Ambulatory Limitations: No Limitations - History of Present Illness Initial comments: This is a 21-year-old female nontoxic, well nourished in appearance, no acute signs of distress presents to the ED with c/o of vaginal bleeding x1 day. Patient stated yesterday she noticed some spotting. Patient denies any abdominal or pelvic pain. Patient denies any vaginal discharge or foul odor. Patient denies any nausea, vomiting, chest pain, shortness of breathe, fever, chills, headache, stiff neck, numbness, tingling. Patient denies any urinary symptoms. Patient denies any allergies or PMH. MD Complaint: vaginal bleeding -: days(s) Radiation: none Severity scale (0 -10): 0 Improves with: none Worsens with: none Associated symptoms: vaginal bleeding. denies: nausea/vomiting, vaginal discharge, abdominal pain, dysuria, headache, vision changes, malaise, dysparuenia, rash, seizure, shortness of breath, syncope, weakness Vaginal bleeding: light :: Yes Pre-akash care: none - Related Data Home Medications Medication Instructions Recorded Confirmed Last Taken Tablet 1 tab PO DAILY 07/17/16 06/09/18 06/08/18 10:00 Aspirin [Aspirin BABY CHEW TAB] 81 mg PO QDAY 04/08/18 06/09/18 06/08/18 10:00 Ferrous Sulfate [Feosol 325 MG tab] 325 mg PO QDAY 04/08/18 06/09/18 06/08/18 10:00 Previous Rx's Medication Instructions Recorded Last Taken Type Ferrous Sulfate [Feosol 325 MG tab] 325 mg PO BID #60 tablet 06/20/18 Unknown Rx Ibuprofen [Motrin 800 MG tab] 800 mg PO Q6H PRN #30 tablet 06/20/18 Unknown Rx Lidocain2.5%/Prilocai2.5% [Emla] 5 gm TP ONCE #1 tube 06/20/18 Unknown Rx oxyCODONE /ACETAMINOPHEN [Percocet 1 - 2 tab PO Q4H PRN #30 tablet 06/20/18 Unknown Rx 5/325 mg] Phenazopyridine [Pyridium] 200 mg PO TID #6 tab 12/05/18 Unknown Rx HYDROcodone/APAP 5-325 [[place] 1 each PO Q6HR PRN #10 tablet 02/21/19 Unknown Rx 5/325] Sulfamethoxazole/Trimethoprim 1 each PO BID #14 tablet 02/21/19 Unknown Rx [Bactrim DS TAB] Ondansetron [Zofran Odt] 4 mg PO Q8HR PRN #20 tab.rapdis 06/27/19 Unknown Rx Nitrofurantoin [place]/M-Cryst 100 mg PO Q12HR #14 capsule 12/20/20 Unknown Rx [Macrobid CAP] 21/Iron Fu/Folic Acid 1 each PO DAILY #30 tablet 12/20/20 Unknown Rx [ Complete Caplet] Allergies Allergy/AdvReac Type Severity Reaction Status Date / Time No Known Allergies Allergy Verified 12/20/20 18:26 ED Review of Systems ROS: Stated complaint: 5WKS /BLEEDING/CRAMPING Other details as noted in HPI Comment: All other systems reviewed and negative Constitutional: denies: chills, fever Eyes: denies: eye pain, eye discharge, vision change ENT: denies: ear pain, throat pain Respiratory: denies: cough, shortness of breath, wheezing Cardiovascular: denies: chest pain, palpitations Endocrine: no symptoms reported Gastrointestinal: denies: abdominal pain, nausea, diarrhea Genitourinary: abnormal menses. denies: urgency, dysuria, discharge Musculoskeletal: denies: back pain, joint swelling, arthralgia Skin: denies: rash, lesions Neurological: denies: headache, weakness, paresthesias Psychiatric: denies: anxiety, depression Hematological/Lymphatic: denies: easy bleeding, easy bruising ED Past Medical Hx - Past Medical History Hx Hypertension: No Hx Congestive Heart Failure: No Hx Diabetes: No Hx Deep Vein Thrombosis: No Hx Renal Disease: No Hx Sickle Cell Disease: No Hx Seizures: No Hx Asthma: No Hx COPD: No Hx HIV: No - Surgical History Additional Surgical History: c-sect x2 - Social History Smoking Status: Never Smoker Substance Use Type: None - Medications Home Medications: Home Medications Medication Instructions Recorded Confirmed Last Taken Type Tablet 1 tab PO DAILY 07/17/16 06/09/18 06/08/18 10:00 History Aspirin [Aspirin BABY CHEW TAB] 81 mg PO QDAY 04/08/18 06/09/18 06/08/18 10:00 History Ferrous Sulfate [Feosol 325 MG tab] 325 mg PO QDAY 04/08/18 06/09/18 06/08/18 10:00 History Ferrous Sulfate [Feosol 325 MG tab] 325 mg PO BID #60 tablet 06/20/18 Unknown Rx Ibuprofen [Motrin 800 MG tab] 800 mg PO Q6H PRN #30 tablet 06/20/18 Unknown Rx Lidocain2.5%/Prilocai2.5% [Emla] 5 gm TP ONCE #1 tube 06/20/18 Unknown Rx oxyCODONE /ACETAMINOPHEN [Percocet 1 - 2 tab PO Q4H PRN #30 tablet 06/20/18 Unknown Rx 5/325 mg] Phenazopyridine [Pyridium] 200 mg PO TID #6 tab 12/05/18 Unknown Rx HYDROcodone/APAP 5-325 [[place] 1 each PO Q6HR PRN #10 tablet 02/21/19 Unknown Rx 5/325] Sulfamethoxazole/Trimethoprim 1 each PO BID #14 tablet 02/21/19 Unknown Rx [Bactrim DS TAB] Ondansetron [Zofran Odt] 4 mg PO Q8HR PRN #20 tab.rapdis 06/27/19 Unknown Rx Nitrofurantoin [place]/M-Cryst 100 mg PO Q12HR #14 capsule 12/20/20 Unknown Rx [Macrobid CAP] 21/Iron Fu/Folic Acid 1 each PO DAILY #30 tablet 12/20/20 Unknown Rx [ Complete Caplet] ED Physical Exam - General Limitations: No Limitations General appearance: alert, in no apparent distress - Head Head exam: Present: atraumatic, normocephalic - Eye Eye exam: Present: normal appearance - Neck Neck exam: Present: normal inspection, full ROM - Respiratory Respiratory exam: Absent: respiratory distress - Cardiovascular Cardiovascular Exam: Present: regular rate - GI/Abdominal GI/Abdominal exam: Present: soft, normal bowel sounds. Absent: distended, tenderness, guarding, rebound, rigid, diminished bowel sounds - Extremities Exam Extremities exam: Present: full ROM - Back Exam Back exam: Present: full ROM - Neurological Exam Neurological exam: Present: alert, oriented X3, normal gait - Psychiatric Psychiatric exam: Present: normal affect, normal mood - Skin Skin exam: Present: warm, dry, intact, normal color. Absent: rash ED Course Vital Signs 12/20/20 18:25 Temperature 98.3 F Pulse Rate 73 Respiratory 18 Rate Blood Pressure 117/75 O2 Sat by Pulse 100 Oximetry - Reevaluation(s) Reevaluation #1: 12/20/20 21:58 Patient is speaking in full sentences with no signs of distress noted. ED Medical Decision Making - Lab Data Result diagrams: 12/20/20 20:18 Lab Results 12/20/20 12/20/20 12/20/20 Range/Units 20:00 20:18 20:18 WBC 10.7 (4.5-11.0) K/mm3 RBC 4.83 (3.65-5.03) M/mm3 Hgb 13.6 (10.1-14.3) gm/dl Hct 42.0 (30.3-42.9) % MCV 87 (79-97) fl MCH 28 (28-32) pg MCHC 32 (30-34) % RDW 14.5 (13.2-15.2) % Plt Count 429 (140-440) K/mm3 Lymph % (Auto) 23.2 (13.4-35.0) % [place] % (Auto) 10.4 H (0.0-7.3) % Eos % (Auto) 2.0 (0.0-4.3) % Baso % (Auto) 0.4 (0.0-1.8) % Lymph # (Auto) 2.5 (1.2-5.4) K/mm3 [place] # (Auto) 1.1 H (0.0-0.8) K/mm3 Eos # (Auto) 0.2 (0.0-0.4) K/mm3 Baso # (Auto) 0.0 (0.0-0.1) K/mm3 Seg Neutrophils % 64.0 (40.0-70.0) % Seg Neutrophils # 6.8 (1.8-7.7) K/mm3 HCG, Quant 171.6 H (0-4) mIU/mL Urine Color Red (Yellow) Urine Turbidity Slightly-cloudy (Clear) Urine pH 8.0 H (5.0-7.0) Ur Specific Emily 1.017 (1.003-1.030) Urine Protein 100 mg/dl (Negative) mg/dL Urine Glucose (UA) Neg (Negative) mg/dL Urine Ketones Neg (Negative) mg/dL Urine Blood Lg (Negative) Urine Nitrite Neg (Negative) Urine Bilirubin Neg (Negative) Urine Urobilinogen < 2.0 (<2.0) mg/dL Ur Leukocyte Esterase Sm (Negative) Urine WBC (Auto) 137.0 H (0.0-6.0) /HPF Urine RBC (Auto) 19.0 (0.0-6.0) /HPF U Epithel Cells (Auto) 19.0 H (0-13.0) /HPF Urine Mucus 1+ /HPF Urine Yeast (Budding) 1+ /HPF Blood Type Ord Rhogam Gestat Weeks WEEKS 12/20/20 Range/Units 20:20 WBC (4.5-11.0) K/mm3 RBC (3.65-5.03) M/mm3 Hgb (10.1-14.3) gm/dl Hct (30.3-42.9) % MCV (79-97) fl MCH (28-32) pg MCHC (30-34) % RDW (13.2-15.2) % Plt Count (140-440) K/mm3 Lymph % (Auto) (13.4-35.0) % [place] % (Auto) (0.0-7.3) % Eos % (Auto) (0.0-4.3) % Baso % (Auto) (0.0-1.8) % Lymph # (Auto) (1.2-5.4) K/mm3 [place] # (Auto) (0.0-0.8) K/mm3 Eos # (Auto) (0.0-0.4) K/mm3 Baso # (Auto) (0.0-0.1) K/mm3 Seg Neutrophils % (40.0-70.0) % Seg Neutrophils # (1.8-7.7) K/mm3 HCG, Quant (0-4) mIU/mL Urine Color (Yellow) Urine Turbidity (Clear) Urine pH (5.0-7.0) Ur Specific Emily (1.003-1.030) Urine Protein (Negative) mg/dL Urine Glucose (UA) (Negative) mg/dL Urine Ketones (Negative) mg/dL Urine Blood (Negative) Urine Nitrite (Negative) Urine Bilirubin (Negative) Urine Urobilinogen (<2.0) mg/dL Ur Leukocyte Esterase (Negative) Urine WBC (Auto) (0.0-6.0) /HPF Urine RBC (Auto) (0.0-6.0) /HPF U Epithel Cells (Auto) (0-13.0) /HPF Urine Mucus /HPF Urine Yeast (Budding) /HPF Blood Type O POSITIVE Ord Rhogam Gestat Weeks Rh pos WEEKS - Radiology Data [facility] [address] [place] [address] Ultrasound Report Signed Patient: RICH LENNON MR#: [id number] : 1995 Acct:[id number] Age/Sex: 25 / F ADM Date: 12/20/20 Loc: ED Attending Dr: Ordering Physician: RAMAKRISHNA RAMIREZ NP Date of Service: 12/20/20 Procedure(s): US OB <= 14 weeks fetus Accession Number(s): [id number] cc: RAMAKRISHNA RAMIREZ NP US OB <= 14 weeks fetus INDICATION / CLINICAL INFORMATION: VAGINAL BLEEDING COMPARISON: None available. TECHNIQUE: Multiple sonographic images of the pelvis were obtained and assessed for grayscale appearance and color Doppler flow. FINDINGS: The uterus measures 7.8 x 3.7 x 4.4 cm and is normal in echogenicity. The endometrial stripe measures 0.3 cm in thickness. The right ovary measures 2.7 x 1.7 x 2.8 cm and is normal in echogenicity. There is normal Doppler flow to the right ovary The left ovary measures 3.1 x 1.7 x 1.9 cm and is normal in echogenicity. Is normal Doppler flow to left ovary. There is no free fluid in the cul-de-sac. IMPRESSION: No sonographic abnormalities. Signer Name: Josh Donaldson MD Signed: 12/20/2020 10:24 PM Workstation Name: [id number] Transcribed By: SS Dictated By: JOSH DONALDSON Electronically Authenticated By: JOSH DONALDSON Signed Date/Time: 12/20/202223 DD/ 22 TD/TT: - Medical Decision Making This is a 25-year-old female presents with threatened miscarriage and UYTI. Patient is stable and was examined by me. Normal abdominal exam. US OB obtained and dictated by the radiologist. Ua obtained. Quantative serum test obtained. Patient notified of the US report with no questions noted by the patient. Patient was instructed f/u with [facility] in 2 days. RH factor positive. Labs within normal limits. Patient was given strict precautions and education on ectopic . At time of discharge, the patient does not seem toxic or ill in appearance. No acute signs of distress noted. Patient agrees to discharge treatment plan of care. No further questions noted by the patient. Critical care attestation.: If time is entered above; I have spent that time in minutes in the direct care of this critically ill patient, excluding procedure time. ED Disposition Clinical Impression: Threatened miscarriage UTI (urinary tract infection) Qualifiers: Urinary tract infection type: acute cystitis Hematuria presence: with hematuria Qualified Code(s): N30.01 - Acute cystitis with hematuria Disposition: TO HOME OR SELFCARE Is pt being admited?: No Does the pt Need Aspirin: No Condition: Stable Instructions: Threatened Miscarriage, Urinary Tract Infection, Adult Additional Instructions: Follow-up with a [facility] doctor in 2 days for repeat test with possible ultrasound or if symptoms worsen and continue return to emergency room as soon as possible. Prescriptions: Nitrofurantoin [place]/M-Cryst [Macrobid CAP] 100 mg PO Q12HR #14 capsule 21/Iron Fu/Folic Acid [ Complete Caplet] 1 each PO DAILY #30 tablet Referrals: [facility] [Primary Care Provider] - 3-5 Days [facility] [Provider Group] - 3-5 Days [facility] [Provider Group] - 3-5 Days Time of Disposition: 22:38
--- NOTE | 2020-12-20 22:28 | Ultrasound Report ---
US OB <= 14 weeks fetus INDICATION / CLINICAL INFORMATION: VAGINAL BLEEDING COMPARISON: None available. TECHNIQUE: Multiple sonographic images of the pelvis were obtained and assessed for grayscale appeara nce and color Doppler flow. FINDINGS: The uterus measures 7.8 x 3.7 x 4.4 cm and is normal in echogenicity. The endometrial stripe measures 0.3 cm in thickness. The right ovary measures 2.7 x 1.7 x 2.8 cm and is normal in echogenicity. There is normal Doppler fl ow to the right ovary The left ovary measures 3.1 x 1.7 x 1.9 cm and is normal in echogenicity. Is normal Doppler flow to l eft ovary. There is no free fluid in the cul-de-sac. IMPRESSION: No sonographic abnormalities. Signer Name: Alek Donaldson MD Signed: 12/20/2020 10:24 PM Workstation Name: [id number]
== END 2020-12-20 22:45 | disposition home or self-care (01) ==
LOC: ED 18:11
DX: O20.0 Threatened abortion (principal); Z3A.14 14 weeks gestation of pregnancy; Z79.899 Other long term (current) drug therapy
CPT/HCPCS: 36415; 76801; 81001; 84702; 85025; 86900; 86901

== ENCOUNTER 2022-01-27 18:06 | Outpatient (CLI) | payer MEDICAID ==
[2022-01-27] MEDS ORDERED: LACTATED RINGERS 1,000 ML IV ONE (18:25)
[2022-01-27 18:44] VITALS: BP 97/56
[2022-01-27 19:41] LABS: Bilirubin,Urine NEG (Negative); Blood,Urine NEG (Negative); Color,Urine Yellow (Yellow); Mucus,Urine 3+ /HPF; Protein,Urine <15 mg/dL mg/dL (Negative); Urobilinogen,Urine < 2.0 mg/dL (<2.0)
== END 2022-01-27 20:53 | disposition home or self-care (01) ==
LOC: TRG 18:06 → APU 18:09 → TRG 20:53
PROVIDERS: ATTEND Obstetrics & Gynecology
DX: O26.852 Spotting complicating pregnancy, second trimester (principal); O26.892 Other specified pregnancy related conditions, second trimester; R25.2 Cramp and spasm; O30.042 Twin pregnancy, dichorionic/diamniotic, second trimester; Z3A.23 23 weeks gestation of pregnancy
CPT/HCPCS: 81001; 96360; J7120

== ENCOUNTER 2022-05-03 20:33 | Outpatient (CLI) | payer MEDICAID ==
[2022-05-03] MEDS ORDERED: LACTATED RINGERS 1,000 ML ONE (23:57)
[2022-05-04] MEDS ORDERED: ACETAMINOPHEN 325 MG TAB PO ONE (00:56)
[2022-05-04 01:31] LABS: Basophils % (Auto) 0.2 % (0.0-1.8); Eosinophils # (Auto) 0.1 K/mm3 (0.0-0.4); Eosinophils % (Auto) 0.9 % (0.0-4.3); Hematocrit 30.8 % (30.3-42.9); Hemoglobin 9.5 gm/dl (10.1-14.3); Lymphocytes # (Auto) 0.4 K/mm3 (1.2-5.4); Lymphocytes % (Auto) 4.8 % (13.4-35.0); Mean Corpuscular HGB Conc 31 % (30-34); Mean Corpuscular Volume 74 fl (79-97); Monocytes # (Auto) 1.1 K/mm3 (0.0-0.8); Platelet Count 358 K/mm3 (140-440); Red Blood Count 4.16 M/mm3 (3.65-5.03); Red Cell Distribution Width 15.6 % (13.2-15.2)
[2022-05-04 02:12] VITALS: BP 98/66
[2022-05-04] MEDS ORDERED: LACTATED RINGERS 1,000 ML IV ONE (02:42)
== END 2022-05-04 02:45 | disposition home or self-care (01) ==
LOC: TRG 20:33 → APU 23:44 → TRG 05-04 02:45
PROVIDERS: ATTEND Obstetrics & Gynecology
DX: O26.893 Other specified pregnancy related conditions, third trimester (principal); R51.9 Headache, unspecified; R10.2 Pelvic and perineal pain; M54.9 Dorsalgia, unspecified; M79.601 Pain in right arm; M79.604 Pain in right leg; O99.213 Obesity complicating pregnancy, third trimester; E66.9 Obesity, unspecified; Z3A.37 37 weeks gestation of pregnancy
CPT/HCPCS: 36415; 59025; 85025; J7120; Q0177; 96360

== ENCOUNTER 2022-05-06 04:16 | Inpatient (IN) | payer MEDICAID ==
[2022-05-06] MEDS ORDERED: LACTATED RINGERS 1,000 ML IV ONE (05:28)
[2022-05-06] MEDS ORDERED: METOCLOPRAMIDE 10 MG/2 ML INJ IV ONE ×3 (05:28→20:30)
[2022-05-06] MEDS ORDERED: FAMOTIDINE 20 MG/2 ML INJ IV ONE ×3 (05:29→20:30)
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
[2022-05-06] MEDS ORDERED: fentaNYL 100 MCG/2 ML INJ IV PRN (10:23)
[2022-05-06] MEDS ORDERED: LOPERAMIDE 2 MG CAP PO PRN (10:23)
[2022-05-06] MEDS ORDERED: CARBOPROST TROMETHAMINE 250 MCG/1 ML INJ IM PRN (10:23)
[2022-05-06] MEDS ORDERED: MINERAL OIL 30 ML ORAL LIQD PO PRN (10:23)
[2022-05-06] MEDS ORDERED: miSOPROStol 200 MCG TAB PR PRN (10:23)
[2022-05-06] MEDS ORDERED: METHYLERGONOVINE MALEATE 0.2 MG/ML VIAL IM PRN (10:23)
[2022-05-06] MEDS ORDERED: ONDANSETRON 4 MG/2 ML INJ IV PRN (10:23)
[2022-05-06] MEDS ORDERED: ACETAMINOPHEN 325 MG TAB PO PRN (10:23)
[2022-05-06] MEDS ORDERED: OXYTOCIN 10 UNIT/1 ML INJ IM PRN (10:23)
[2022-05-06] MEDS ORDERED: ePHEDrine SULFATE 50 MG/1 ML INJ IV PRN (10:23)
[2022-05-06] MEDS ORDERED: BUTORPHANOL 2 MG/1 ML INJ IV PRN (10:23)
[2022-05-06] MEDS ORDERED: TERBUTALINE 1 MG/1 ML INJ SUB-Q PRN (10:23)
[2022-05-06] MEDS ORDERED: LACTATED RINGERS 1,000 ML IV SCH ×2 (10:30)
[2022-05-06] MEDS ORDERED: BICITRA ORAL LIQD 30ML PO ONE ×2 (11:00→20:30)
[2022-05-06] MEDS ORDERED: ceFAZolin/Water 2 GM/20 ML 2 GM/20 ML SYRINGE IV NR (11:00)
[2022-05-06] MEDS ORDERED: LIDOCAINE (2%) 20 MG/1 ML VIAL 20 ML MDV INFILTRATI ONE (11:00)
[2022-05-06] MEDS ORDERED: OXYTOCIN DRIP 30 UNITS/500 ML BAG IV SCH (11:00)
--- NOTE | 2022-05-06 11:18 | Ultrasound Report ---
Limited OB Ultrasound HISTORY: decelerations on NST. TECHNIQUE: Grayscale and color imaging performed. COMPARISON: No recent relevant comparison exam FINDINGS: Single viable intrauterine gestation with LUZ ELENA of 9.6 cm. The presentation was not demonstra verito on this exam. On the BPP from today, the heart rate was 152 bpm. IMPRESSION: Very limited exam with LUZ ELENA of 9.6 cm. Signer Name: Giorgio Zimmerman MD Signed: 05/06/2022 11:14 AM Workstation Name: [id number]
--- NOTE | 2022-05-06 11:34 | Ultrasound Report ---
Biophysical profile Ultrasound HISTORY: variable decelerations on nst. TECHNIQUE: Grayscale and color imaging performed. COMPARISON: None FINDINGS: The fetus received a score of 2 out of 2 for breathing, movement, posture/tone, and LUZ ELENA. To candy score was 8 out of 8. Heart rate was 152 bpm. IMPRESSION: Normal biophysical profile. Signer Name: Giorgio Zimmerman MD Signed: 05/06/2022 11:30 AM Workstation Name: [email or web address]
[2022-05-06 12:18] LABS: Basophils % (Auto) 0.8 % (0.0-1.8); Eosinophils % (Auto) 0.3 % (0.0-4.3); Hematocrit 30.8 % (30.3-42.9); Hemoglobin 9.8 gm/dl (10.1-14.3); Lymphocytes # (Auto) 1.2 K/mm3 (1.2-5.4); Lymphocytes % (Auto) 19.1 % (13.4-35.0); Mean Corpuscular HGB Conc 32 % (30-34); Mean Corpuscular Volume 74 fl (79-97); Monocytes # (Auto) 0.8 K/mm3 (0.0-0.8); Monocytes % (Auto) 13.6 % (0.0-7.3); Platelet Count 368 K/mm3 (140-440); Red Blood Count 4.17 M/mm3 (3.65-5.03); Red Cell Distribution Width 15.7 % (13.2-15.2)
[2022-05-06] MEDS ORDERED: SODIUM CHLORIDE 0.9% 500 ML 500 ML IV ONE (21:17)
[2022-05-06] MEDS ORDERED: ONDANSETRON 4 MG/2 ML INJ ONE (23:22)
[2022-05-06] MEDS ORDERED: dexAMETHasone 20 MG/5 ML VIAL ONE (23:22)
[2022-05-06] MEDS ORDERED: KETOROLAC 30 MG/1 ML INJ ONE (23:22)
[2022-05-06] MEDS ORDERED: ePHEDrine SULFATE 50 MG/1 ML INJ ONE ×2 (23:23→23:50)
[2022-05-06] MEDS ORDERED: fentaNYL 100 MCG/2 ML INJ ONE (23:25)
[2022-05-06] MEDS ORDERED: ESMOLOL 100 MG/10 ML INJ IV ONE (23:49)
[2022-05-06] MEDS ORDERED: GLYCOPYRROLATE 0.4 MG/2 ML INJ ONE (23:49)
[2022-05-06] MEDS ORDERED: BUPIVACAINE/PF (0.5%) 5 MG/1 ML 30 ML VIAL INFILTRATI ONE (23:54)
--- NOTE | 2022-05-07 00:42 | Operative Report ---
Operative Report Operative Report: Date of procedure: 05/06/2022 Pre-operative diagnosis: 37 6 weeks gestation Prolonged latency labor variable decelerations Previous section x2 Post-operative diagnosis: Same Procedure name(s): Repeat low transverse section via Pfannenstiel skin incision Surgeon: Dr. [employer] Project Lead: JUSTYNA Anesthesia: Spinal EBL: 890 mL Urine output: 175 mL of clear urine out at end of procedure Fluids: 2100 mL Findings: Liveborn female weight` Indications: Patient presented to triage with complaints of contractions. Patient had presented to triage 2 days consecutively with the same complaints. Patient was examined and noted to be approximately 1-1/2 to 2 cm 50% of face and approximately -3 station. Patient was also noted to have variable deceleration as well as spurts of tachycardia. Patient did get testing in which the BPP was 8 out of 8 and the amniotic fluid index was noted to be normal decision was made to proceed with delivery due to previous history of section and prolonged latency in combination with variable decelerations. All risk benefits and alternatives were discussed with the patient. Consents were signed and placed on the chart. Procedure: Patient was taking to the operating room. Patient was then prepped a nd draped in sterile fashion after anesthesia was found to be adequate. A low transverse skin incision was made with the scalpel through previous incisional scar and carried down to the underlying layer of fascia with the Bovie. The fascia was then incised in the midline and this incision was extended bilaterally with the Bovie. The superior aspect of the fascia was grasped with Katrina clamps tented upward and dissected off of the anterior rectus muscles with the scalpel. In similar fashion the inferior aspect of the fascia was grasped with Katrina clamps tented upward and dissected off of the anterior rectus muscles. The rectus muscles were then bluntly divided in the midline. The peritoneum was identified and entered into sharply. The bladder blade was placed. The bladder blade was replaced. A lower transverse uterine incision was made with the scalpel and extended bilaterally with blunt dissection. Artificial rupture of membranes was performed yielding [clear amniotic fluid]. The infant's head was then delivered atraumatically. The anterior shoulder and rest of delivered without difficulty. The umbilical cord was clamped x2. The cord was cut. The infant was then placed in sterile bassinet. [The cord blood was collected]. The placenta was manually extracted in its entirety. The uterus was exteriorized and cleared of all clots and debris. The uterine in cision was closed using 0 Vicryl in a running locking fashion. [ A second imbricating layer of the same suture was then created.] The posterior cul-de-sac was copiously irrigated. The uterus was returned to the abdomen. The gutters were also irrigated. The anterior rectus muscles were reapproximated using 3-0 Vicryl. The anterior rectus fascia was reapproximated using 0 Vicryl in a running fashion. The subcuticular fat was reapproximated using 2-0 Vicryl in a running fashion. The skin was reapproximated with 4-0 Monocryl in a subcuticular stitch. The patient tolerated the procedure well. Sponge lap and needle counts were all correct x3. Patient was taken to the recovery room awake and in stable condition.
--- NOTE | 2022-05-07 00:50 | Anesthesia Consultation ---
Anesthesia Consult and Med Hx - Airway Anesthetic Teeth Evaluation: Good ROM Head & Neck: Adequate Mental/Hyoid Distance: Adequate Mallampati Class: Class I Intubation Access Assessment: Probably Good - Pulmonary Exam CTA: Yes - Cardiac Exam Cardiac Exam: RRR - Pre-Operative Health Status ASA Pre-Surgery Classification: ASA2 Proposed Anesthetic Plan: Spinal Nerve Block: tap - Pulmonary Hx Smoking: No Hx Asthma: No COPD: No Hx Pneumonia: No - Cardiovascular System Hx Hypertension: No - Central Nervous System Hx Seizures: No Hx Psychiatric Problems: No - Endocrine Hx Renal Disease: No Hx End Stage Renal Disease: No Hx Hypothyroidism: No Hx Hyperthyroidism: No - Hematic Hx Anemia: No Hx Sickle Cell Disease: No - Other Systems Hx Alcohol Use: No Hx Obesity: Yes
--- NOTE | 2022-05-07 00:51 | Anesthesia Day of Surgery ---
Anesthesia Day of Surgery - Day of Surgery Patient Examined: Yes Patient H&P Reviewed: Yes Patient is NPO: Yes Beta Blockers: No Cardiac Clearance: No Pulmonary Clearance: No Alfa's Test: N/A
--- NOTE | 2022-05-07 00:53 | Progress Note ---
Regional Anesthesia Block - Regional Anesthesia Block Start Time: 00:30 Stop Time: 00:35 Performed By:: DAWNA RENDON Procedure: alisa tap blocks, layton well, 0.5 bupi diluted top 0.25% with saline, 30 ml each side, VSS, US guidance
[2022-05-07] MEDS ORDERED: LANOLIN/ZINC/DIMETHICONE (LANSINOH) 7 GM TP PRN (00:56)
[2022-05-07] MEDS ORDERED: KETOROLAC 30 MG/1 ML INJ IV PRN (00:56)
[2022-05-07] MEDS ORDERED: NALOXONE 0.4 MG/1 ML INJ IV PRN (00:56)
[2022-05-07] MEDS ORDERED: WITCH HAZEL/ GLYCERIN PAD TP PRN (00:56)
[2022-05-07] MEDS ORDERED: D5W/LACTATED RINGERS 1,000 ML IV SCH (01:00)
[2022-05-07] MEDS: MORPHINE 2 MG/1 ML INJ IV PRN ×3 (03:38→17:44)
[2022-05-07] MEDS: ceFAZolin/NS 1 GM/50 ML 1 GM/50 ML BAG IV SCH ×2 (05:49→14:03)
[2022-05-07] MEDS: KETOROLAC 30 MG/1 ML INJ IV PRN ×2 (05:52→12:54)
--- NOTE | 2022-05-07 09:42 | Progress Note ---
Assessment and Plan - Patient Problems (1) Prolonged latent phase of labor Current Visit: Yes Status: Resolved (2) 37 or more weeks gestation of Current Visit: No Status: Acute (3) Previous section Onset Date: ~06/20/18 Current Visit: No Status: Acute (4) Lab test positive for detection of COVID-19 virus Current Visit: Yes Status: Acute Plan to address problem: -Patient remained stable without any signs or symptoms of COVID at this time -Continue isolation at this time. (5) delivery delivered Current Visit: No Status: Acute Plan to address problem: -Routine postoperative care -Routine care -Plan to DC home postoperative day #2 if remain afebrile and vital signs are stable Subjective - Subjective Date of service: 05/07/22 Principal diagnosis: POD #1 s/p RTCS 2)Covid + Interval history: Patient doing well this morning. She is having some pain but states that overall her pain has been well controlled. Patient has been breast-feeding without difficulty. Patient continues to show no obvious signs and symptoms of COVID at this time. Contact precautions and isolation are continued at this time. All questions were addressed and answered. Patient reports: appetite normal, voiding normally, pain well controlled, no dizzy ambulation [place]: doing well, nursing well Objective - Vital Signs Latest vital signs: Vital Signs Temp Pulse Resp BP Pulse Ox Pulse Ox 05/07/22 08:34 95 05/07/22 03:00 95 05/07/22 02:59 98.1 F 65 18 101/65 100 05/07/22 02:00 63 18 101/42 05/07/22 01:45 67 17 99/42 05/07/22 01:25 76 16 99/51 05/07/22 01:10 87 22 11/70 05/07/22 00:55 78 19 106/60 05/07/22 00:50 77 16 102/60 05/07/22 00:45 97.5 F L 76 16 96/60 05/06/22 23:02 97 H 100 05/06/22 22:57 94 H 100 05/06/22 22:52 92 H 100 05/06/22 22:47 91 H 100 05/06/22 22:42 95 H 100 05/06/22 22:37 101 H 100 05/06/22 22:32 86 100 05/06/22 22:27 93 H 100 05/06/22 22:22 99 H 100 05/06/22 22:17 105 H 100 05/06/22 22:12 116 H 100 05/06/22 22:07 110 H 100 05/06/22 22:02 105 H 100 05/06/22 21:57 116 H 100 05/06/22 21:22 107 H 100 05/06/22 21:17 85 100 05/06/22 21:12 109 H 100 05/06/22 21:07 105 H 100 05/06/22 21:05 114 H 108/73 05/06/22 21:02 116 H 100 05/06/22 20:57 105 H 100 05/06/22 20:52 114 H 100 05/06/22 20:47 112 H 100 05/06/22 20:42 122 H 100 05/06/22 20:37 104 H 99 05/06/22 20:35 112 H 92/58 05/06/22 20:32 100 H 100 100 05/06/22 20:27 91 H 100 05/06/22 20:22 103 H 99 05/06/22 20:17 107 H 100 05/06/22 20:12 115 H 99 05/06/22 20:07 113 H 100 05/06/22 20:05 108 H 107/70 05/06/22 20:02 107 H 100 05/06/22 19:57 103 H 100 05/06/22 19:52 115 H 100 05/06/22 19:47 95 H 100 05/06/22 19:42 110 H 100 05/06/22 19:37 98 H 100 05/06/22 19:35 105 H 102/68 05/06/22 19:32 115 H 82 L 05/06/22 19:27 106 H 100 05/06/22 19:22 101 H 100 05/06/22 19:17 105 H 99 05/06/22 19:12 107 H 100 05/06/22 19:07 115 H 100 05/06/22 19:03 100 H 97/58 05/06/22 19:02 107 H 100 05/06/22 19:00 98.4 F 16 05/06/22 18:57 106 H 100 05/06/22 18:52 103 H 100 05/06/22 18:47 101 H 100 08/06/22 18:42 108 H 98 05/06/22 18:37 103 H 100 05/06/22 18:32 104 H 100 05/06/22 18:27 115 H 98 05/06/22 18:22 111 H 98 05/06/22 18:17 110 H 100 05/06/22 18:12 111 H 99 05/06/22 18:07 99 H 100 05/06/22 18:02 105 H 100 05/06/22 17:57 114 H 100 05/06/22 17:52 111 H 100 05/06/22 17:47 109 H 100 05/06/22 17:42 119 H 100 05/06/22 17:37 126 H 98 05/06/22 17:32 118 H 100 05/06/22 17:27 129 H 100 05/06/22 17:22 131 H 100 05/06/22 17:17 126 H 100 05/06/22 17:12 130 H 100 05/06/22 17:00 110 H 100 05/06/22 16:55 124 H 100 05/06/22 16:50 119 H 100 05/06/22 16:45 112 H 100 05/06/22 16:40 119 H 100 05/06/22 16:35 129 H 100 05/06/22 16:30 126 H 99 05/06/22 16:25 123 H 100 05/06/22 16:20 120 H 100 05/06/22 16:15 118 H 100 05/06/22 16:10 107 H 99 05/06/22 16:05 116 H 100 05/06/22 16:00 117 H 98 05/06/22 15:55 109 H 100 05/06/22 15:50 112 H 100 05/06/22 15:45 118 H 100 05/06/22 15:40 119 H 99 05/06/22 15:35 101 H 100 05/06/22 15:30 107 H 100 05/06/22 15:25 109 H 100 05/06/22 15:20 109 H 99 05/06/22 15:15 116 H 100 05/06/22 15:10 120 H 99 05/06/22 15:05 111 H 100 05/06/22 15:00 107 H 100 05/06/22 14:55 110 H 100 05/06/22 14:50 111 H 100 05/06/22 14:45 107 H 98 05/06/22 14:40 108 H 100 05/06/22 14:35 121 H 100 05/06/22 14:30 121 H 100 05/06/22 14:25 113 H 100 05/06/22 14:20 111 H 100 05/06/22 14:15 109 H 100 05/06/22 14:10 106 H 100 05/06/22 14:05 114 H 100 05/06/22 14:00 104 H 100 05/06/22 13:55 115 H 100 05/06/22 13:50 109 H 100 05/06/22 13:45 119 H 99 05/06/22 13:40 116 H 100 05/06/22 13:35 117 H 100 05/06/22 13:30 117 H 98 05/06/22 13:25 98 H 98 05/06/22 13:20 118 H 99 05/06/22 13:15 115 H 100 05/06/22 13:10 103 H 100 05/06/22 13:05 111 H 99 05/06/22 13:00 105 H 100 05/06/22 12:55 111 H 100 05/06/22 12:50 114 H 98 05/06/22 12:45 106 H 100 05/06/22 12:40 107 H 100 05/06/22 12:35 101 H 100 05/06/22 12:30 108 H 100 05/06/22 12:25 111 H 100 05/06/22 12:20 111 H 99 05/06/22 12:15 104 H 100 05/06/22 12:10 116 H 100 05/06/22 12:05 113 H 100 05/06/22 12:00 110 H 100 05/06/22 11:55 121 H 100 05/06/22 11:50 118 H 100 05/06/22 11:45 130 H 100 05/06/22 11:40 120 H 100 05/06/22 11:35 118 H 99 05/06/22 11:30 109 H 100 05/06/22 11:25 127 H 100 05/06/22 11:20 113 H 100 05/06/22 11:15 121 H 100 05/06/22 11:10 108 H 100 05/06/22 11:05 112 H 100 05/06/22 11:00 112 H 100 05/06/22 10:55 119 H 100 05/06/22 10:50 101 H 100 05/06/22 10:45 109 H 100 05/06/22 10:40 103 H 99 05/06/22 10:35 111 H 100 05/06/22 10:30 110 H 100 05/06/22 10:25 124 H 100 05/06/22 10:12 105 H 100 05/06/22 10:07 109 H 100 05/06/22 10:02 112 H 100 05/06/22 09:57 108 H 100 05/06/22 09:52 127 H 100 05/06/22 09:47 120 H 100 05/06/22 09:42 110 H 100 Intake and Output 05/06/22 05/07/22 05/07/22 22:59 06:59 14:59 Intake Total 245 Output Total 1100 Balance -855 Intake: IV 125 Left Forearm 125 Oral 120 Output: Urine 1100 Indwelling Catheter 800 Uretheral (Zheng) 300 Other: Total, Intake Amount 120 Total, Output Amount 800 - Exam Cardiovascular: Present: Normal S1, Normal S2 Lungs: Present: Clear to auscultation, Normal air movement Abdomen: Present: normal appearance, soft, normal bowel sounds. Absent: distention, tenderness, guarding Extremities: Present: normal. Absent: tenderness, edema Deep Tendon Reflex Grade: Normal +2 Incision: Present: normal, dry, intact, dressed - Labs Labs: Abnormal lab results 05/06/22 05/06/22 05/06/22 Range/Units 11:09 11:20 11:20 Hgb 9.8 L (10.1-14.3) gm/dl MCV 74 L (79-97) fl MCH 24 L (28-32) pg RDW 15.7 H (13.2-15.2) % [place] % (Auto) 13.6 H (0.0-7.3) % SARS-CoV-2 (PCR) Positive A (Negative) Crossmatch See Detail
[2022-05-07 15:54] LABS: Hemoglobin 9.3 gm/dl (10.1-14.3)
[2022-05-07] MEDS: HYDROcodone/ACETAMINOPHEN 5-325 MG TAB PO PRN (21:26)
[2022-05-08] MEDS: IBUPROFEN 800 MG TAB PO PRN ×2 (04:01→23:54)
[2022-05-08] MEDS ORDERED: TETANUS,DIPH,PERTUSS(ACELL) VACCINE 0.5 ML SYRINGE IM ONE (06:00)
[2022-05-08] MEDS: HYDROcodone/ACETAMINOPHEN 5-325 MG TAB PO PRN ×3 (06:07→19:41)
--- NOTE | 2022-05-08 08:24 | Progress Note ---
Assessment and Plan A:" 26 y.o. s/p rpt @ term. - Patient Problems (1) delivery delivered Current Visit: No Status: Acute Plan to address problem: Continue with care. Advance diet as tolerated. Encourage ambulation. Encourage IS use. Anticipate discharge home on 05/09. (2) Lab test positive for detection of COVID-19 virus Current Visit: Yes Status: Acute Plan to address problem: Continue isolation at this time. Subjective - Subjective Date of service: 05/08/22 Principal diagnosis: POD #2 s/p RTCS 2)Covid + Patient reports: appetite normal, voiding normally, pain well controlled, flatus, ambulating normally [place]: doing well Objective - Vital Signs Latest vital signs: Vital Signs Temp Pulse Resp BP BP Pulse Ox Pulse Ox 05/08/22 06:48 18 05/08/22 06:07 18 05/08/22 06:00 100 05/08/22 05:01 18 05/07/22 23:52 97.6 F 93 H 18 91/63 100 05/07/22 22:26 18 05/07/22 21:26 18 05/07/22 21:25 97.3 F L 99 H 18 100/67 99 05/07/22 20:00 100 05/07/22 16:57 90/61 05/07/22 12:00 69 18 98/65 100 05/07/22 08:49 97.8 F 78 18 96/60 100 05/07/22 08:34 95 Intake and Output 05/07/22 05/08/22 05/08/22 22:59 06:59 14:59 Intake Total 960 360 Output Total 550 Balance 410 360 Intake: Oral 840 Intake, Free Water 120 360 Output: Urine 550 Void 550 Other: Total, Intake Amount 240 Total, Output Amount 250 # Voids Void 1 1 - Exam Cardiovascular: Present: Regular rate Lungs: Present: Normal air movement Abdomen: Present: normal appearance, soft Vulva: both: normal Uterus: Present: normal Extremities: Present: normal Incision: Present: normal, dry, intact, other (Steri strips in place. No drainage or s/sx of infection noted. ) - Labs Labs: Abnormal lab results 05/07/22 Range/Units 15:16 Hgb 9.3 L (10.1-14.3) gm/dl Hct 29.0 L (30.3-42.9) %
--- NOTE | 2022-05-08 10:14 | Electrocardiograph Report ---
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
[2022-05-09] MEDS: IBUPROFEN 800 MG TAB PO PRN ×2 (05:46→12:59)
--- NOTE | 2022-05-09 07:54 | Event Note ---
Date: 05/09/22 Pt with a EPDS score of 16. Pt states that she feels good, she just has a lot of stress at home. Denies SI, feelings of wanting to harm self, , or others. Will discharge after mental health assessment and clearance from case management.
[2022-05-09] MEDS: HYDROcodone/ACETAMINOPHEN 5-325 MG TAB PO PRN ×2 (10:00→16:57)
--- NOTE | 2022-05-09 12:28 | Consultation ---
History of Present Illness - Reason for Consult Consult date: 05/09/22 Reason for consult: Blairs score 16 - Chief Complaint Chief complaint: contractions, nausea, vomiting - History of Present Psychiatric Illness This 26 yr old female with hx of depression who was consulted for Blairs score of 16. The patient was seen today. She is calm alert and oriented x4. Patient reports history of with her previous childbirth and was started on Zoloft which she reports taking for about two months. She denies being depressed today but reports being stressed due to having financial and relationship issues.The patient is receptive to restarting Zoloft ad will follow up with her psychiatrist post discharge. PAST PSYCHIATRIC HISTORY Diagnoses: depression Suicide attempts or Self-harm behavior: Denies Prior psychiatric hospitalizations: Denies Substance Abuse history: Denies Previous psychiatric medications tried: Zoloft Outpatient treatment: Denies PAST MEDICAL HISTORY: None reported Family Psychiatric History: None reported or documented SOCIAL HISTORY Marital Status: single Living Arrangements: Lives with boyfriend and her other three children Employment Status: employed Access to guns/weapons: Yes Education: High school History of Abuse: Denies Legal History: Denies REVIEW OF SYSTEMS Constitutional: Negative for weight loss ENT: Negative for stridor Respiratory: Negative for cough or hemoptysis All other systems reviewed and are negative MENTAL STATUS EXAMINATION General Appearance and Behavior: Age appropriate, good hygiene, wearing appropriate clothes, good eye contact, calm, cooperative Cooperation: Participating/engaged, but Guarded Psychomotor Behavior: Psychomotor normal Mood: Ok Affect and affective range: congruent with stated mood Thought Process: goal directed Thought Content: reality oriented Speech: Normal tone and pace Suicidal Ideation: Denies Homicidal Ideation: Denies Hallucinations: Denies Delusions: None elicited Impulse Control: Normal Insight and Judgment: Limited insight and judgment Memory: Limited Attention: divided Orientation: Alert, oriented Assessment and Plan Hx: depression Treatment Plan Continue home Meds Zoloft 25mg PO daily Risks, benefits and alternatives of medications discussed with the patient, questions answered and consent obtained from patient. PSYCHOTHERAPY: Supportive psychotherapy provided MEDICAL: Per primary team DELIRIUM PRECAUTIONS: Please re-orient patient frequently, keep lights on during the day, and minimize benzodiazepines and opiates as these medications could worsen patient's confusion. CONCRETE HANDLER: Defer to primary DISPOSITION: Do not recommend acute inpatient psychiatric hospitalization at this time. [facility] will provide patient with psychiatric outpatient resources Will follow. Thank you for the consult. Please contact with any questions and/or concerns. Case staffed with Dr. Crum Medications and Allergies Medications and Allergies Medications and Allergies Allergies Allergy/AdvReac Type Severity Reaction Status Date / Time No Known Allergies Allergy Verified 05/06/22 04:31 Home Medications Medication Instructions Recorded Confirmed Last Taken Type Aspirin [Aspirin BABY CHEW TAB] 81 mg PO QDAY 04/08/18 05/07/22 06/08/18 10:00 History 21/Iron Fu/Folic Acid 1 each PO DAILY #30 tablet 12/20/20 05/07/22 Unknown Rx [ Complete Caplet] Docusate Sodium [Colace] 100 mg PO BID PRN #60 capsule 05/07/22 Unknown Rx Ferrous Sulfate [Feosol 325 MG tab] 325 mg PO QDAY #60 tablet 05/07/22 Unknown Rx Ibuprofen [Motrin 800 MG tab] 800 mg PO Q8HR PRN #30 tablet 05/07/22 Unknown Rx oxyCODONE /ACETAMINOPHEN [Percocet 1 tab PO Q4HR #30 tab 05/07/22 Unknown Rx 5/325] Sertraline [Zoloft] 25 mg PO QDAY 30 Days #30 tab 05/09/22 Unknown Rx Active Meds: Active Medications Hydrocodone Bitart/Acetaminophen (Hydrocodone/Acetaminophen 5-325 Mg Tab) 2 each PO Q6H PRN PRN Reason: Pain, Moderate (4-6) Last Admin: 05/08/22 19:41 Dose: 2 each Dextrose/Lactated Ringer's (D5lr) 1,000 mls @ 125 mls/hr IV DIRECT HARPREET Last Admin: 05/07/22 02:13 Dose: 125 mls/hr Ibuprofen (Ibuprofen 800 Mg Tab) 800 mg PO Q6H PRN PRN Reason: Pain, Moderate (4-6) Last Admin: 05/09/22 05:46 Dose: 800 mg Ketorolac Tromethamine (Ketorolac 30 Mg/1 Ml Inj) 15 mg IV Q6H PRN PRN Reason: Pain, Mild (1-3) Stop: 05/12/22 00:55 Ketorolac Tromethamine (Ketorolac 30 Mg/1 Ml Inj) 30 mg IV Q6H PRN PRN Reason: Pain, Moderate (4-6) Stop: 05/12/22 00:55 Last Admin: 05/07/22 12:54 Dose: 30 mg Morphine Sulfate (Morphine 2 Mg/1 Ml Inj) 2 mg IV Q4H PRN PRN Reason: Pain , Severe (7-10) Last Admin: 05/07/22 17:44 Dose: 2 mg Multi-Ingredient Ointment (Lanolin/Zinc/Dimethicone (Lansinoh) 7 Gm) 1 applic TP PRN PRN PRN Reason: dryness/cracking Naloxone HCl (Naloxone 0.4 Mg/1 Ml Inj) 0.1 mg IV Q2MIN PRN PRN Reason: Res Rate </= 8 or 02 SAT < 92% Witch Cadence/Glycerin (Witch Cadence/ Glycerin Pad) 1 each TP PRN PRN PRN Reason: Hemorrhoids/cleansing/soothing Mental Status Exam - Vital signs Last Vital Signs Temp 97.9 F 05/09/22 07:44 Pulse 84 05/09/22 07:44 Resp 20 05/09/22 07:44 BP 105/73 05/09/22 07:44 Pulse Ox 98 05/09/22 08:07 Results Result Diagrams: 05/07/22 15:16 All other labs normal.
[2022-05-09] MEDS ORDERED: SERTRALINE 25 MG TAB PO SCH (13:00)
--- NOTE | 2022-05-09 17:20 | Discharge Summary ---
Providers - Providers Date of Admission: 05/06/22 04:19 Date of discharge: 05/09/22 Attending physician: ELVIE CUELLAR 05/09/22 06:48 Consult to Case Management [CONS] Routine Services Needed at Discharge: Other Notified:: Ext [phone] Was contact made?: No Additional Physician Instructions: Mental Health evaluation ordered for [place] score of 16. Primary care physician: ELVIE CUELLAR Hospitalization Reason for admission: other Delivery: Procedure: repeat low transverse Episiotomy: none Incision: normal, dry, intact Other procedures: none complications: none Discharge diagnosis: IUP at term delivered [place] baby: female Pertinent studies: Pt had a EPDS score of 16. She stated that she was having some stress from issues coming from home. She is now feeling well and has no thoughts of harming herself, her baby, or anyone else. We discussed should these feelings occur she will call the office and go to the nearest ER immediately. Pt has been cleared by the psych team for discharge home. Hospital course: S: Pt doing well. Denies feelings of wanting to harm self, baby, or anyone else. Ambulating, voiding, passing flatus okay. O: VSS. Minimal vaginal bleeding noted. Incision, open to air, no s/sx of infection and no drainage noted. H/H 9.3/29.0, asymptomatic anemia of delivery. A: 26 y.o. s/p rpt . In good condition . P: Discharge home with instructions. Pt to schedule incision check in office in 1 week. Condition at discharge: Good Disposition: 01 HOME / SELF CARE / HOMELESS - Discharge Diagnoses (1) delivery delivered Status: Acute Comment: RTO 1 week for postop care and circ (2) Lab test positive for detection of COVID-19 virus Status: Acute Plan - Discharge Medications Prescriptions: Docusate Sodium [Colace] 100 mg PO BID PRN #60 capsule PRN Reason: Constipation Ferrous Sulfate [Feosol 325 MG tab] 325 mg PO QDAY #60 tablet Ibuprofen [Motrin 800 MG tab] 800 mg PO Q8HR PRN #30 tablet PRN Reason: Pain, Moderate (4-6) oxyCODONE /ACETAMINOPHEN [Percocet 5/325] 1 tab PO Q4HR #30 tab Sertraline [Zoloft] 25 mg PO QDAY 30 Days #30 tab - Provider Discharge Summary Activity: routine, no sex for 6 weeks, no heavy lifting 4 weeks, no strenuous exercise Diet: routine Instructions: routine Additional instructions: [] Smoking cessation referral if applicable(refer to patient education folder for contact #) [] Refer to [facility]'s [facility] [address] Booklet Call your doctor immediately for: * Fever > 100.5 * Heavy vaginal bleeding ( >1 pad per hour) * Severe persistent headache * Shortness of breath * Reddened, hot, painful area to leg or breast * Drainage or odor from incision. * Keep incision clean and dry at all times and follow doctor's instructions regarding bathing/showering - Follow up plan Follow up: ELVIE CUELLAR MD [Primary Care Provider] - 7 Days (- Congratulations on the of your baby girl! - You have tested positive for COVID. You must be symptom free and wear your mask when you are seen for your incision check. If you develop symptoms, please call the office to reschedule your incision check appointment. - Please schedule your incision check in the office in 1.5 weeks. - If you have any thoughts of hurting yourself, your baby, or anyone else, please go to the nearest ER immediately. - If you have any questions or concerns after discharge, please do not hesitate to call the office at . ) Forms: [facility] Discharge Summary
[2022-05-09 21:52] VITALS: BP 95/66
== END 2022-05-09 21:25 | disposition home or self-care (01) | DRG 765 ==
LOC: TRG 04:16 → APU 04:17 → TRG 10:31 → APU 23:50 → OB 05-07 03:08
PROVIDERS: ADMIT Obstetrics & Gynecology; ATTEND Obstetrics & Gynecology
PROC: 10D00Z1 Extraction of Products of Conception, Low, Open Approach (ICD-10-PCS; principal; 2022-05-06)
PROC: 3E0234Z Introduction of Serum, Toxoid and Vaccine into Muscle, Percutaneous Approach (ICD-10-PCS; 2022-05-08)
DX: O76 Abnormality in fetal heart rate and rhythm complicating labor and delivery (principal); U07.1 COVID-19; O34.211 Maternal care for low transverse scar from previous cesarean delivery; O98.52 Other viral diseases complicating childbirth; O63.9 Long labor, unspecified; Z3A.37 37 weeks gestation of pregnancy; Z37.0 Single live birth; Z23 Encounter for immunization; O90.81 Anemia of the puerperium
CPT/HCPCS: 31720; 36415; 76815; 76819; 85014; 85018; 85025; 86592; 86850; 86900; 86901; 86920; 88307; 93005; G0378; J1815; J3490; J7060; J0690; J1100; J1885; J2270; J2405; J2765; J3010; J7120; J7121; U0003